=== PATIENT | female | born 1955 | race Caucasian/White ===

== ENCOUNTER 2018-12-22 10:23 | Outpatient (REF) | payer OTHER, SELFPAY ==
[2018-12-22 12:52] LABS: ALT 24 U/L (12-78); AST 19 U/L (15-37); Albumin 3.8 g/dL (3.4-5.0); Alkaline Phosphatase 64 U/L (46-116); Anion Gap 12.1 mmol/L (3-11); BUN 29 mg/dL (7-18); Bilirubin, Total 0.4 mg/dL (0.2-1.0); CO2 23.9 mmol/L (21.0-32.0); CREATININE 1.55 mg/dL (0.55-1.02); Calcium 9.1 mg/dL (8.5-10.1); Chloride 107 mmol/L (98-107); Cholesterol 212 mg/dL (50-200); Estimated GFR 33.56 (mL/min/1.73m2); Glucose 98 mg/dL (70-100); HDL Cholesterol 79 mg/dL (40-60); LDL CHOLESTEROL 110 mg/dL (<100); Potassium 4.4 mmol/L (3.5-5.1); Sodium 143 mmol/L (136-145); Total Protein 6.7 g/dL (6.4-8.2); Triglyceride 76 mg/dL (30-150)
== END 2018-12-22 10:43 ==
LOC: NCHCN 10:23
PROVIDERS: PCP Nurse Practitioner; Visit Provider Nurse Practitioner
DX: I10 Essential (primary) hypertension (principal); N18.4 Chronic kidney disease, stage 4 (severe)
CPT/HCPCS: 80053; 80061; 83721

== ENCOUNTER 2019-05-05 02:43 | Outpatient (CLI) | payer OTHER, SELFPAY ==
--- NOTE | 2019-05-05 08:00 | DI.MAMMO_ITS ---
EXAM: MG MAMMO SCREENING CLINICAL HISTORY: SCREENING, Z12.39. TECHNIQUE: COMPARISON: No exams were available for comparison FINDINGS: Breasts are of moderate density with fairly symmetrical distribution of fibroglandular tissue. No do minant mass or clumped microcalcification is identified in either breast. Current examination is com pared with previous examinations including June 2015 and there has been no gross interval change in appearance comparison with the previous studies. IMPRESSION: No specific evidence of malignancy at this time. Routine screening examinations suggested at yearly intervals in this age group according to the ACS ACR guidelines category 1 breast density category B
== END 2019-05-05 03:03 ==
PROVIDERS: PCP Nurse Practitioner; Visit Provider Nurse Practitioner
DX: Z12.31 Encounter for screening mammogram for malignant neoplasm of breast (principal)
CPT/HCPCS: 77063; 77067

== ENCOUNTER 2020-03-28 08:06 | Outpatient (REF) | payer OTHER, SELFPAY ==
[2020-03-28 19:05] LABS: ALT 21 U/L (14-59); AST 18 U/L (15-37); Albumin 3.9 g/dL (3.4-5.0); Alkaline Phosphatase 63 U/L (46-116); Anion Gap 7.1 mmol/L (3-11); BUN 27 mg/dL (7-18); Bilirubin, Total 0.4 mg/dL (0.2-1.0); CO2 24.9 mmol/L (21.0-32.0); CREATININE 1.89 mg/dL (0.55-1.02); Calcium 8.8 mg/dL (8.5-10.1); Calculated LDL 126 mg/dL (<100); Chloride 111 mmol/L (98-107); Cholesterol 204 mg/dL (<200); Estimated GFR 26.61 (mL/min/1.73m2); Glucose 94 mg/dL (74-106); HDL Cholesterol 63 mg/dL (40-60); Potassium 4.5 mmol/L (3.5-5.1); Sodium 143 mmol/L (136-145); Total Protein 6.4 g/dL (6.4-8.2); Triglyceride 79 mg/dL (<150)
[2020-03-30 14:01] LABS: HCV RNA Qualitative Undetected (Undetected)
== END 2020-03-28 08:26 ==
LOC: NCHCN 08:06
PROVIDERS: PCP Nurse Practitioner; Visit Provider Nurse Practitioner
DX: I10 Essential (primary) hypertension (principal); N18.4 Chronic kidney disease, stage 4 (severe); Z00.00 Encounter for general adult medical examination without abnormal findings; Z11.59 Encounter for screening for other viral diseases
CPT/HCPCS: 80053; 80061; 87522

== ENCOUNTER 2021-07-05 09:13 | Outpatient (REF) | payer MEDICARE, SELFPAY ==
[2021-07-05 14:56] LABS: Calculated LDL 123 mg/dL (<100); Cholesterol 217 mg/dL (<200); HDL Cholesterol 70 mg/dL (40-60); Triglyceride 122 mg/dL (<150)
== END 2021-07-05 09:14 | disposition home or self-care (01) ==
LOC: NCHCN 09:13
PROVIDERS: PCP Nurse Practitioner; Visit Provider Nurse Practitioner
DX: Z00.00 Encounter for general adult medical examination without abnormal findings (principal)
CPT/HCPCS: 80061

== ENCOUNTER 2021-08-21 01:29 | Outpatient (CLI) | payer MEDICARE, SELFPAY ==
--- NOTE | 2021-08-21 16:00 | DI.MAMMO_ITS ---
Exam(s) MAMMO SCREENING EXAM: MAMMO SCREENING CLINICAL HISTORY: SCREENING, Z12.39 TECHNIQUE: Mammograms were interpreted according to the usual protocol including computer analysis w Plurality system, tomosynthesis and C-view imaging. COMPARISON: FINDINGS: The breasts are of moderate density with fairly symmetrical distribution of fibroglandular tissue. T here is a stable well-circumscribed nodule in the upper outer quadrant of the left breast, unchanged from multiple prior examinations including May 2019. No new mass or clumped microcalcification i dentified in either breast. IMPRESSION: No specific evidence of malignancy at this time. Routine screening examinations are suggested at yea rly intervals in this age group according to the ACS ACR guidelines. BI-RADS Category 1 - Negative Breast Density - Category B - Scattered areas of fibroglandular density
--- NOTE | 2021-08-21 16:30 | DI.DEXA_ITS ---
Exam(s) XR DEXA BONE DENSITY W/WO KAYCE EXAM: XR DEXA BONE DENSITY W/WO KAYCE CLINICAL HISTORY: MENOPAUSE, Z78.0 TECHNIQUE: COMPARISON: No exams were available for comparison FINDINGS: DEXA scan was performed according to the usual protocol. Please see the accompanying data sheets. F indings for left hip scanning are T-score 2.0 with left femoral neck T-score -3.0. Findings for lumbar spine scanning are T-score -2.8. Findings for left forearm scanning are T-score -1.4. The lateral vertebral scanogram shows probable mild compression deformities of midthoracic vertebral bodies, confirmation with thoracic spine radiographs suggested. IMPRESSION: The findings are consistent with osteoporosis according to the WHO criteria. Suspect mid thoracic ve rtebral compression fractures, thoracic spine radiographs recommended. RADIATION DOSE DELIVERED: Total DLP
== END 2021-08-21 01:49 ==
PROVIDERS: PCP Nurse Practitioner; Visit Provider Nurse Practitioner
DX: Z78.0 Asymptomatic menopausal state (principal); Z13.820 Encounter for screening for osteoporosis; M81.0 Age-related osteoporosis without current pathological fracture; R93.7 Abnormal findings on diagnostic imaging of other parts of musculoskeletal system
CPT/HCPCS: 77063; 77067; 77080

== ENCOUNTER → 2021-09-11 00:34 | Outpatient (CLI) | payer MEDICARE, SELFPAY ==
--- NOTE | 2021-09-11 | DI.RAD_ITS ---
Exam(s) XR THORACIC SPINE COMPLETE EXAM: XR THORACIC SPINE COMPLETE CLINICAL HISTORY: OSTEOPOROSIS, M81.0, VERTEBRAL COMPRESSION FRACTURES SUSPECTED ON DEXA. TECHNIQUE: 2D digital imaging was performed. COMPARISON: CR XR DEXA BONE DENSITY W/WO KAYCE from 08/21/2021 FINDINGS: There is no evidence of compression fracture nor listhesis in the thoracic spinal column. Disc space s exhibit normal height. No abnormal widening of the paraspinal lines. No osseous lesions. IMPRESSION: No compression fractures evident in the thoracic spinal column. The findings evident on the lateral scanogram of the recent DEXA scan appear to have been artifact DATA REPOSITORY: RADIATION DOSE DELIVERED:
== END ==
PROVIDERS: PCP Nurse Practitioner; Visit Provider Nurse Practitioner Family
DX: M81.0 Age-related osteoporosis without current pathological fracture (principal)
CPT/HCPCS: 72072

== ENCOUNTER 2021-09-25 01:44 | Outpatient (CLI) | payer MEDICARE, SELFPAY ==
[2021-09-25 11:59] LABS: Abs Immature Grans 0.06 10^3/uL (0.0-0.06); Absolute Basophil Count 0.04 10^3/uL (0.0-0.2); Absolute Eosinophil Count 0.25 10^3/uL (0.0-0.7); Absolute Lymphocyte Count 1.41 10^3/uL (1.2-3.4); Absolute Monocyte Count 0.45 10^3/uL (0.1-0.8); Absolute Neutrophil Count 5.34 10^3/uL (1.2-6.7); Basophils % 0.5; Eosinophils % 3.3; HCT 38.3 % (36.0-46.0); HGB 11.6 g/dL (11.2-15.7); Immature Grans % 0.8; Lymphocytes % 18.7; MCH 27.5 pg (27.0-33.0); MCHC 30.3 % (32.0-36.0); MCV 90.8 fL (80-95); Neutrophils % 70.7; Nucleated RBC 0 %; Platelet Count 214 10^3/uL (130-400); RBC 4.22 10^6/uL (3.93-5.22); RDW 14.7 % (11.7-14.6); RDW-SD 48.8 fL; WBC 7.55 10^3/uL (4.4-10.8)
[2021-09-25 22:49] LABS: ALT 27 U/L (14-59); AST 17 U/L (15-37); Albumin 3.7 g/dL (3.4-5.0); Alkaline Phosphatase 67 U/L (46-116); Anion Gap 7.7 mmol/L (3-11); BUN 40 mg/dL (7-18); Bilirubin, Total 0.3 mg/dL (0.2-1.0); CO2 26.3 mmol/L (21.0-32.0); CREATININE 1.7 mg/dL (0.55-1.02); Calcium 8.6 mg/dL (8.5-10.1); Chloride 109 mmol/L (98-107); Estimated GFR 29.89 (mL/min/1.73m2); Glucose 83 mg/dL (74-106); Potassium 4.5 mmol/L (3.5-5.1); Sodium 143 mmol/L (136-145); Total Protein 6.4 g/dL (6.4-8.2)
[2021-09-26 01:13] LABS: Vitamin D 25 Total 18.7 ng/mL (30-100)
[2021-09-27 09:46] LABS: Parathyroid Hormone,Intact 183 pg/mL (19-88)
== END 2021-09-25 01:45 | disposition home or self-care (01) ==
PROVIDERS: PCP Nurse Practitioner; Visit Provider Nurse Practitioner Family
DX: N18.4 Chronic kidney disease, stage 4 (severe) (principal); I10 Essential (primary) hypertension; M81.0 Age-related osteoporosis without current pathological fracture
CPT/HCPCS: 36415; 80053; 82306; 83970; 85025

== ENCOUNTER 2021-12-25 13:11 | Outpatient (REF) | payer MEDICARE, SELFPAY ==
[2021-12-25 17:02] LABS: Microalb ug/mg Crea 414.6 ug/mg Cr
== END 2021-12-25 13:12 | disposition home or self-care (01) ==
LOC: NCHCN 13:11
PROVIDERS: PCP Nurse Practitioner; Visit Provider Nurse Practitioner Family
DX: I10 Essential (primary) hypertension (principal); N18.4 Chronic kidney disease, stage 4 (severe)
CPT/HCPCS: 82043; 82570

== ENCOUNTER 2022-01-15 15:22 | Outpatient (REF) | payer MEDICARE, SELFPAY ==
[2022-01-15 14:49] LABS: Iron 50 ug/dL (50-170); Total Iron Binding Capacity 291 ug/dL (250-450); Transferrin Sat 17 % (15-50)
[2022-01-15 15:04] LABS: ALT 17 U/L (14-59); AST 15 U/L (15-37); Albumin 3.7 g/dL (3.4-5.0); Alkaline Phosphatase 62 U/L (46-116); Anion Gap 9.4 mmol/L (3-11); BUN 37 mg/dL (7-18); Bilirubin, Total 0.4 mg/dL (0.2-1.0); CO2 23.6 mmol/L (21.0-32.0); CREATININE 2.3 mg/dL (0.55-1.02); Calcium 8.7 mg/dL (8.5-10.1); Chloride 106 mmol/L (98-107); Estimated GFR 21.09 (mL/min/1.73m2); Ferritin 248 ng/mL (8-252); Glucose 93 mg/dL (74-106); Magnesium 2.1 mg/dL (1.8-2.4); Potassium 4.3 mmol/L (3.5-5.1); Sodium 139 mmol/L (136-145); Total Protein 6.8 g/dL (6.4-8.2)
[2022-01-15 15:33] LABS: PHOSPHORUS 4.1 mg/dL (2.6-4.7)
== END 2022-01-15 15:23 | disposition home or self-care (01) ==
LOC: NCHCN 15:22
PROVIDERS: PCP Nurse Practitioner; Visit Provider Nurse Practitioner Family
DX: N18.4 Chronic kidney disease, stage 4 (severe) (principal); I10 Essential (primary) hypertension; R20.2 Paresthesia of skin; M81.0 Age-related osteoporosis without current pathological fracture
CPT/HCPCS: 80053; 82728; 83540; 83550; 83735; 84100

== ENCOUNTER 2023-03-03 16:16 | Outpatient (REF) | payer MEDICARE, SELFPAY ==
[2023-03-03 15:57] LABS: Bacteria Moderate HPF (Negative); C & S Indicated? C&S Done As Ordered; Casts Negative LPF (Negative); Crystals Negative HPF (Negative); Epithelial Cells Rare HPF (Negative); Mucus Trace (Negative); Other Cells Negative (Negative); WBC >50 HPF (0-5)
== END 2023-03-03 16:17 | disposition home or self-care (01) ==
LOC: LBN 16:16
PROVIDERS: PCP Nurse Practitioner; Visit Provider Nurse Practitioner Family
DX: N30.01 Acute cystitis with hematuria (principal)
CPT/HCPCS: 87077; 81015; 87086; 87186

== ENCOUNTER 2023-03-05 18:14 | Outpatient (REF) | payer MEDICARE, SELFPAY ==
[2023-03-05 16:32] LABS: Abs Immature Grans 0.34 10^3/uL (0.0-0.06); Absolute Basophil Count 0.05 10^3/uL (0.0-0.2); Absolute Eosinophil Count 0.09 10^3/uL (0.0-0.7); Absolute Lymphocyte Count 0.76 10^3/uL (1.2-3.4); Absolute Monocyte Count 0.87 10^3/uL (0.1-0.8); Basophils % 0.4; Eosinophils % 0.7; HCT 34.4 % (36.0-46.0); HGB 10.6 g/dL (11.2-15.7); Immature Grans % 2.5; Lymphocytes % 5.7; MCH 27.3 pg (27.0-33.0); MCHC 30.8 % (32.0-36.0); MCV 89 fL (80-95); MPV 10.7 fL (8.0-11.0); Monocytes % 6.5; Neutrophils % 84.2; Platelet Count 311 10^3/uL (130-400); RBC 3.88 10^6/uL (3.93-5.22); RDW 14.5 % (11.7-14.6); RDW-SD 46.8 fL; WBC 13.42 10^3/uL (4.4-10.8)
[2023-03-05 16:59] LABS: Anion Gap 12.1 mmol/L (3-11); BUN 39 mg/dL (7-18); CO2 20.9 mmol/L (21.0-32.0); CREATININE 2.7 mg/dL (0.55-1.02); Calcium 9.4 mg/dL (8.5-10.1); Chloride 104 mmol/L (98-107); Estimated GFR 18.52 (mL/min/1.73m2); Glucose 109 mg/dL (74-106); Potassium 4.3 mmol/L (3.5-5.1); Sodium 137 mmol/L (136-145)
== END 2023-03-05 18:15 | disposition home or self-care (01) ==
LOC: NCHCN 18:14
PROVIDERS: PCP Nurse Practitioner; Visit Provider Nurse Practitioner Family
DX: I10 Essential (primary) hypertension (principal); N18.4 Chronic kidney disease, stage 4 (severe); N30.01 Acute cystitis with hematuria
CPT/HCPCS: 80048; 85025

== ENCOUNTER 2023-04-16 18:47 | Outpatient (REF) | payer MEDICARE, SELFPAY ==
[2023-04-16 19:51] LABS: ALT 19 U/L (14-59); AST 17 U/L (15-37); Albumin 3.5 g/dL (3.4-5.0); Alkaline Phosphatase 62 U/L (46-116); Anion Gap 8.3 mmol/L (3-11); BUN 30 mg/dL (7-18); Bilirubin, Total 0.5 mg/dL (0.2-1.0); CO2 23.7 mmol/L (21.0-32.0); CREATININE 2.3 mg/dL (0.55-1.02); Calcium 8.8 mg/dL (8.5-10.1); Calculated LDL 90 mg/dL (<100); Chloride 108 mmol/L (98-107); Cholesterol 178 mg/dL (<200); Estimated GFR 22.45 (mL/min/1.73m2); Glucose 100 mg/dL (74-106); HDL Cholesterol 73 mg/dL (40-60); Potassium 4.4 mmol/L (3.5-5.1); Sodium 140 mmol/L (136-145); Total Protein 6.6 g/dL (6.4-8.2); Triglyceride 76 mg/dL (<150)
== END 2023-04-16 18:48 | disposition home or self-care (01) ==
LOC: NCHCN 18:47
PROVIDERS: PCP Nurse Practitioner; Visit Provider Nurse Practitioner Family
DX: I10 Essential (primary) hypertension (principal); E78.2 Mixed hyperlipidemia; N18.4 Chronic kidney disease, stage 4 (severe); M81.0 Age-related osteoporosis without current pathological fracture
CPT/HCPCS: 80053; 80061

== ENCOUNTER 2024-04-28 02:20 | Outpatient (CLI) | payer MEDICARE, SELFPAY ==
--- NOTE | 2024-04-28 | DI.MAMMO_ITS ---
Exam(s) MAMMO SCREENING EXAM: MAMMO SCREENING CLINICAL HISTORY: SCREENING MAMMO Z12.31 TECHNIQUE: Bilateral full field digital CC and MLO mammographic images were obtained with 3D tomosyn thesis and utilizing computer aided detection (CAD). COMPARISON: Available for comparison. FINDINGS: Masses/Architectural Distortion: There is a stable nodule seen in the upper outer quadrant of the lef t breast. No suspicious nodules are seen. No areas of architectural distortion are present. Microcalcifications: No suspicious pleomorphic-type are seen. Skin Thickening/Nipple Retraction: None. IMPRESSION: 1. No significant interval change with no specific features of malignancy noted. 2. Unless there is more urgent need, screening mammography is recommended, as per [employer] guidelines. BI-RADS Category 2 - Benign Findings Breast Density - Category B - Scattered areas of fibroglandular density Breast density category C or D implies that the patient has dense breast tissue. Dense breast tissue is very common and is not abnormal but dense breast tissue can make it harder to find cancer on a ma mmogram. Also, dense breast tissue may increase their breast cancer risk. This information about the result of the mammogram report was provided to the patient to raise their awareness. Use this report when you speak with the patient about their risks for breast cancer, which includes their family hist ory. At that time, you may recommend for more screening tests (Ultrasound or MRI) as they might be us eful based on their risk. A negative radiographic report should not delay biopsy if a dominant or clinically suspicious mass is present. Up to ten percent of cancers are not identified on mammography. A negative report may reinforce clinical impression. Adenosis and dense breasts may obscure an underlying neoplasm. False positive reports average 6 to 10%. Patient will receive a letter notifying them of these results.
== END 2024-04-28 02:40 ==
PROVIDERS: Visit Provider Nurse Practitioner Family
DX: Z12.31 Encounter for screening mammogram for malignant neoplasm of breast (principal)
CPT/HCPCS: 77063; 77067

== ENCOUNTER 2024-05-27 21:57 | Outpatient (REF) | payer MEDICARE, SELFPAY ==
--- OUTSIDE RECORDS SUMMARY | 2024-05-27 22:03 | XMS_ITS | Encounter Summary ---
[place] [address] Care Team Providers Care Design Eng Name Role Phone Shannon Fletcher APRN Primary Care Provider [phone] Encounter Details Date Type Department Care Team (Late st Contact Info) Description 10/16/2022 Telephone [place]ph[place] [phone] Roxanne Loja Social History Tobacco Use Types Packs/Day Years Used Date Smoking Tobacco: Never Smokeless Tobacco: Never Alcohol Use Standard Drinks/Week Comments No 0 (1 standard drink = 0.6 oz pur e alcohol) Sex and Gender Information Value Date Recorded Sex Assigned at Not on file Gender Identity Not on file Sexual Orientation Not on file documented as of this encounter Plan of Treatment Not on file documented as of this encounter Visit Diagnoses Not on filedocumented in this encounter Care Teams Design Eng Relationship Specialty Start Date End Date Shannon Fletcher [place] [address] [place] [address] PCP - General Family Medicine 09/30/21 documented as of this encounter
--- OUTSIDE RECORDS SUMMARY | 2024-05-27 22:03 | XMS_ITS | Encounter Summary ---
[place] [address] Care Team Providers Care Slot Attendant Name Role Phone Rina Hernandez APRN Primary Care Provider [phone] Reason for Visit * Consultation (Routine) - Closed Specialty Diagnoses / Procedures Referred By Contsofya t Referred To Contact Nephrology Diagnoses Renal insufficiency Rina Hernandez APRN [address] [place] [address] [facility] Nephrology [address] [place] [id number] Referral ID Status Reason Start Date Expiration Date V isits Requested Visits Authorized [id number] Closed Consult, Test & [facility] 01/02/2017 01/02/2018 1 1 Encounter Details Date Type Department Care Team (Latest Contact Info) Description 02/13/2017 11:00 AM EDT Office Visit [place] [phone] Rolf Camacho MD CKD (chronic kidney disease) stage 4, GFR 15-29 ml/min Social History Tobacco Use Types Packs/Day Years Used Date Smoking Tobacco: Never Smokeless Tobacco: Never Alcohol Use Standard Drinks/Week Comments No 0 (1 standard drink = 0.6 oz pur e alcohol) Sex and Gender Information Value Date Recorded Sex Assigned at Not on file Gender Identity Not on file Sexual Orientation Not on file documented as of this encounter Last Filed Vital Signs Vital Sign Reading Time Taken Comments Blood Pressure 140/72 02/13/2017 10:54 AM EDT Pulse 56 02/13/2017 10:54 AM EDT Temperature - - Respiratory Rate - - Oxygen Saturation 97% 02/13/2017 10:54 AM EDT Inhaled Oxygen Concentration - - Weight 97.1 kg (214 lb) 02/13/2017 10:54 AM EDT Height 156.2 cm (5' 1.5) 02/13/2017 10:54 AM ED T Body Mass Index 39.78 02/13/2017 10:54 AM EDT documented in this encounter Progress Notes * Rolf Camacho MD - 02/13/2017 11:00 AM EDT Renal and Hypertension New Patient Visit History of Presenting Complaint including relevant review of systems This is a new patient visit to the Renal and Hypertension clinic for this 61 y.o. year old female referred by Rina Hernandez APRN The referring documents were reviewed. Additional data were obtained from the [facility] records (eDH andCIS) and the referring physician's office. ?? 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 Patient has taken lithium for 29 years. Thebes was discontinued 2 years ago be because of concern for kidney function. She reports urinary frequency every 2 hours and nocturia ??2-3 as well as an episode of dehydration following surgery in the past. She denies tremor. She reports that her bipolar affective disorder is currently in remission. ?? Hypertension well controlled. Systolic blood pressure normally 1:30 to 140 ?? Occasional urinary tract infection ?? 2 para 2 with section at term secondary to disproportion There is no previous history of diabetes, identified primary renal disease, nephrolithiasis, urinary tract infection, gout, collagen vascular disease Additional Past Medical History ?? 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 labetalol (NORMODYNE) 100 mg Tablet 100 mg 2 times daily. 0 ??? lisinopril (PRINIVIL;ZESTRIL) 10 mg Tablet 10 mg daily. 0 ??? valACYclovir (VALTREX) 500 mg Tablet 500 mg daily. 0 No current facility-administered medications for this visit. No NSAIDs. No OTCs or supplements Review of Systems Complete review of systems is negative apart from relevant positives and negatives listed above On examination This is a pleasant, well- appearing 61 y.o. female in no acute distress Blood pressure 140/72, pulse 56, height 156.2 cm (5' 1.5), weight 97.1 kg (214 lb), SpO2 97 %. Body mass index is 39.78 kg/(m^2). There is no uremic fetor and no asterixis The head is normal There is no conjunctival pallor The hands and nails are unremarkable The oropharynx appears normal. Dentition is fair There is no jugular venous distention There is no peripheral edema and no sacral edema The heart sounds are S1 + S2 with no rubs, murmurs or gallops The Breath sounds are vesicular throughout with no added sounds The thoracic and lumbar spine is non tender to percussion along its length The abdomen is soft and nontender. There is no costovertebral angle tenderness. No masses or organsare palpated The carotid, brachial, femoral popliteal, dorsalis pedis and posterior tibial pulses are present and equal without bruits. There are no abdominal bruits There is no tremor Gait is normal. Facies symmetrical. DORIAN, Mentation and speech are normal Labs: Reviewed outside laboratory values and data available in eDH. Notable for as above Serum creatinine December 24, 2016 1.65 mg/dL estimated GFR 31 mils per minutes Results for ODILON JONES ( ) as of 02/20/2017 15:06 Ref. Range 02/13/2017 10:40 02/13/2017 12:14 Sodium Latest Ref Range: 135 - 145 mmol/L 143 Potassium Latest Ref Range: 3.5 - 5.0 mmol/L 4.8 Chloride Latest Ref Range: 98 - 107 mmol/L 107 CO2 Latest Ref Range: 22 - 31 mmol/L 22 Anion Gap Latest Ref Range: 5 - 15 mmol/L 14 BUN Latest Ref Range: 8 - 18 mg/dL 26 (H) Creatinine Latest Ref Range: 0.70 - 1.20 mg/dL 1.76 (H) Estimated GFR Latest Ref Range: >=60 29 (L) Glucose Lvl Latest Ref Range: 65 - 199 mg/dL 96 Calcium Latest Ref Range: 8.5 - 10.5 mg/dL 9.7 Total Prot Elec Latest Ref Range: 6.1 - 8.0 gm/dL 6.6 Albumin Elect Latest Ref Range: 3.60 - 6.00 gm/dL 4.53 Alpha1-Globulin Latest Ref Range: 0.10 - 0.30 gm/dL 0.20 Alpha2-Globulin Latest Ref Range: 0.40 - 0.90 gm/dL 0.67 Beta Globulin Latest Ref Range: 0.50 - 1.00 gm/dL 0.64 Gamma Globulin Latest Ref Range: 0.50 - 1.30 gm/dL 0.55 M1 Band Unknown None Detected U Protein Ran Latest Ref Range: 0 - 12 mg/dL 11 Radiology studies: No renal imaging Urinalysis and microscopy: Renal clinic laboratory Urine dipstick: negative for blood, trace protein, leucocytes Urine microscopy: Low and High power bobby Negative for cells,casts, crystals Assessment and Recommendations 1. Stable stage IV CK D most likely secondary to chronic lithium nephrotoxicity. This diagnosis canbe confirmed with ultrasound to rule out obstruction or other structural cause such as polycystic kidney disease.. Increased medullary echogenicity may be present in cases of chronic lithium nephrotoxicity and is considered a confirmatory finding. There is no evidence of myeloma and No evidence of primary renal disease. 2. Hypertensionappears to be well controlled 3. Recommend Sufficient water to maintain light colored urine particular during hot weather. Avoid nonsteroidal anti-inflammatory medications dietary fruit and vegetables sufficient to maintain serumpotassium greater than 4 mEq per liter 4. I've asked the patient to have medications renewed by your office as needed 5. Return to clinic 3 months with renal ultrasound and basic metabolic panel, CK D labs. Ordered.. I Thank you for referring this interesting patient documented in this encounter Plan of Treatment Not on file documented as of this encounter Procedures Procedure Name Priority Date/Time Associated Diagnosis Comments PTH Routine 02/13/2017 12:14 PM EDT CKD (chronic kidney disease) stage 4, GFR 15-29 ml/min HEMOGRAM Routine 02/13/2017 12:14 PM EDT CKD (chronic kidney disease) stage 4, GFR 15-29 ml/min DIFFERENTIAL, AUTOMATED Routine 02/13/2017 12:14 PM EDT CKD (chronic kidney disease) stage 4, GFR 15-29 ml/min CBC (WITH DIFF) Routine 02/13/2017 12:14 PM EDT CKD (chronic kidney disease) stage 4, GFR 15-29 ml/min PROTEIN ELECTROPHORESIS, SERUM Routine 02/13/2017 12:14 PM EDT CKD (chronic kidney disease) stage 4, GFR 15-29 ml/min BASIC METABOLIC PANEL Routine 02/13/2017 12:14 PM EDT CKD (chronic kidney disease) stage 4, GFR 15-29 ml/min PROTEIN/CREATININE RATIO, URINE Routine 02/13/2017 10:40 AM EDT CKD (chronic kidney disease) stage 4, GFR 15-29 ml/min documented in this encounter Results * (ABNORMAL) Vitamin D, 25-Hydroxy (04/08/2017 12:34 PM EDT) Vitamin D Total 25 OH 27(L) 30 - 100 ng/mL [facility] Comment: Deficient <10 ng/mL Insufficient 10 to 29 ng/mL Sufficient 30 to 100 ng/mL Potential Intoxication >100 ng/mL According to the [place] National Osteoporosis Foundation, Vitamin D concentrations >30 ng/mL are sufficient to protect bone health. ??The National Kidney Foundation has similarly stated that patients with Vitamin D concentrations <30ng/mL should be considered to be insufficient or deficient. http://tracx.com/nkf-guidelines http://tracx.com/nejm-VitD The IDS iSYS Vitamin D Immunoassay detects both 25-OH Vitamin D2 and 25-OH Vitamin D3, but only a total Vitamin D concentration is reported. Blood specimen (specimen) 04/08/2017 12:34 PM EDT 04/08/2017 2:36 PM EDT Narrative Resulting Agency Comment Spec In Lab Rolf Camacho MD CHEMISTRY ORDERABLES [facility] [place] [address] * (ABNORMAL) PTH (04/08/2017 12:34 PM EDT) Parathyroid Hormone 114(H) 15 - 65 pg/mL [facility] Blood specimen (specimen) 04/08/2017 12:34 PM EDT 04/08/2017 12:41 PM EDT Narrative Resulting Agency Comment Spec In Lab Rolf Camacho MD CHEMISTRY ORDERABLES Performing Organization Address City/[facility]/ZIP Co de Phone Number [facility] [place] [address] * (ABNORMAL) Uric acid (04/08/2017 12:34 PM EDT) Uric Acid 7.6(H) 2.5 - 6.5 mg/dL [facility] Blood specimen (specimen) 04/08/2017 12:34 PM EDT 04/08/2017 12:41 PM EDT Narrative Resulting Agency Comment Spec In Lab Rolf Camacho MD CHEMISTRY ORDERABLES Performing Organization Address City/[facility]/ZIP Co de Phone Number [facility] [place] [address] * (ABNORMAL) Basic Metabolic Panel (non-fasting) (04/08/2017 12:34 PM EDT) Glucose 94 65 - 199 mg/dL [facility] Comment:Diabetes: >=200 mg/d L plus symptoms Blood Urea Nitrogen 28(H) 8 - 18 mg/dL [facility] Creatinine 1.77(H) 0.70 - 1.20 mg/dL [facility] Comment: Please note that the pediatric reference intervals supplied above were not validated at [facility]. Results from pediatric patients should be interpreted in conjunction to the patient's age, height and muscle mass. Sodium 144 135 - 145 mmol/L [facility] Potassium 4.7 3.5 - 5.0 mmol/L [facility] Comment: Please note: ??Patients with WBC >100,000 may have falsely elevated Potassium levels. ??For accurate Potassium quantification in these patients send serum separator tube (gold top) for subsequent determinations. ??Contact the Clinical Chemistry Laboratory if there are any questions. Chloride 107 98 - 107 mmol/L [facility] Carbon Dioxide 24 22 - 31 mmol/L [facility] Anion Gap 13 5 - 15 mmol/L [facility] Calcium 9.7 8.5 - 10.5 mg/dL [facility] Est Glomerular Filtration Rate 29(L) >=60 [facility] Comment: This estimated GFR (eGFR) value was calculated using the MDRD equation which has been validated on patients between the ages of 18 and 70. The MDRD should not be used to assess kidney function in patients < 18 years of age or in patients with extremes of body mass, or in patients with acute kidney failure. This value should be multiplied by 1.2 for patients. For further information please copy and paste the following links into your internet browser. http://Zumbox/DHnkdep http://Zumbox/DHMCnkf Blood specimen (specimen) 04/08/2017 12:34 PM EDT 04/08/2017 12:41 PM EDT Narrative Resulting Agency Comment Spec In Lab Rolf Camacho MD CHEMISTRY ORDERABLES [facility] [place] [address] * US Retroperitoneal Complete (04/08/2017 11:12 AM EDT) Anatomical Region Laterality Modality Abdomen Ultrasound 04/08/2017 11:0 9 AM EDT Impressions 04/08/2017 11:42 AM EDT ??1. ??Normal echogenicity of bilateral kidneys with mild cortical thinning. Nohydronephrosis.2. ??Partially distended bladder, otherwise normal bladder wall contour.I have personally reviewed the image(s) and the residents interpretation andagree with the findings, Jie Mcfarlane at 04/08/2017 11:35 AM ?Jie Mcfarlane MD Electronically Signed Final Report ?? 04/08/2017 11:42 am Narrative 04/08/2017 11:42 AM EDT Renal ? (Signed Final 04/08/2017 11:42 am) PATIENT INFO: ID #: ? [id number] ?: ??[birth year] (61 yrs) Name: ? ODILON JONES ?Visit Date: 04/08/2017 11:09 am PERFORMED BY: Performed By: ? Ana Lilia Sanchez RDMS Attending: ?Denys DE LEÓN, Jie Merrill Resident: ? Rosa Maharaj MD Referred By: ?ROLF CAMACHO Location: ? [place] SERVICE(S) PROVIDED: ??URETRO - Retroperitoneal Complete - [id number] ? [id number] INDICATIONS: ??CKD COMPARISON: No prior studies for comparison. RIGHT KIDNEY: Size (cm) ?L: ??8.5 Cortical Thickness: ?Cortical thinning Cortical Echogenicity: ?? Normal Hydronephrosis: ?No sonographic evidence Comment: ?Simple renal cyst visualized, measuring 0.6 cm. LEFT KIDNEY: Size (cm) ?L: ??9.0 Cortical Thickness: ?Normal Cortical Echogenicity: ?? Normal Hydronephrosis: ?No sonographic evidence URINARY BLADDER: Pre-void (cm) ? L: ??4.5 ? AP: ??4.4 ? TV: ??6.4 Vol (ml): ?66.4 Comment: ?Partially distended, normal contour Procedure Note Jie Mcfarlane MD - 04/08/2017 Renal (Signed Final 04/08/2017 11:42 am) PATIENT INFO: ID #: [id number] : [birth year] (61 yrs) Name: ODILON JONES Visit Date: 04/08/2017 11:09 am PERFORMED BY: Performed By: Ana Lilia Sanchez RDMS Attending: Jie Mcfarlane MD Resident: Rosa Maharaj MD Referred By: ROLF CAMACHO Location: [place] SERVICE(S) PROVIDED: URETRO - Retroperitoneal Complete - [id number] INDICATIONS: CKD COMPARISON: No prior studies for comparison. RIGHT KIDNEY: Size (cm) L: 8.5 Cortical Thickness: Cortical thinning Cortical Echogenicity: Normal Hydronephrosis: No sonographic evidence Comment: Simple renal cyst visualized, measuring 0.6 cm. LEFT KIDNEY: Size (cm) L: 9.0 Cortical Thickness: Normal Cortical Echogenicity: Normal Hydronephrosis: No sonographic evidence URINARY BLADDER: Pre-void (cm) L: 4.5 AP: 4.4 TV: 6.4 Vol (ml): 66.4 Comment: Partially distended, normal contour IMPRESSION 1. Normal echogenicity of bilateral kidneys with mild cortical thinning. Nohydronephrosis.2. Partially distended bladder, otherwise normal bladder wall contour.I have personally reviewed the image(s) and the residents interpretation andagree with the findings, Jie Mcfarlane at 04/08/2017 11:35 AM Jie Mcfarlane MD Electronically Signed Final Report 04/08/2017 11:42 am Rolf Camacho MD IMG US GEN ORDERABLE S * (ABNORMAL) Differential, Automated (02/13/2017 12:14 PM EDT) Neutrophil % 68.3 % [facility] Neutrophil Absolute 4.96 1.70 - 6.10 x10(3)/mc L [facility] Lymph % 21.5 % [facility] Lymphocytes Abs 1.6 0.9 - 3.2 x10(3)/mc L [facility] Monocyte % 4.8 % [facility] Monocyte Abs 0.4 0.3 - 0.9 x10(3)/[facility] Eos % 4.0 % [facility] Eosinophils Abs 0.3 0.0 - 0.4 x10(3)/[facility] Basophil % 0.7 % [facility] Baso Absolute 0.0 0.0 - 0.1 x10(3)/[facility] Immature Gran % 0.70 % [facility] Comment: Immature granulocytes(IG's)percentage and absolute count will include metamyelocytes, myelocytes, and promyelocytes. Blood smears from CBCs yielding IG's will be scanned manually for concordance. If this scan disagrees with the automated IG or if promyelocytes are noted, a manual differential will be performed. Immature Gran Absolute 0.05(H) 0.00 - 0.04 x10(3)/[facility] Blood specimen (specimen) 02/13/2017 12:14 PM EDT 02/13/2017 12:20 PM EDT Narrative Resulting Agency Comment Spec In Lab Rolf Camacho MD HEMATOLOGY ORDERABLE S [facility] [place] [address] * (ABNORMAL) Hemogram (02/13/2017 12:14 PM EDT) White Blood Cell 7.3 4.0 - 9.5 x10(3)/[facility] Red Blood Cell 4.16 4.00 - 5.21 x10(6)/[facility] Hemoglobin 11.6(L) 11.7 - 15.5 gm/dL [facility] Hematocrit 36.3 35.7 - 45.8 % [facility] Mean Cell Volume 87.3 82.6 - 94.4 fL [facility] Mean Cell Hemoglobin 27.9 27.1 - 32.0 pg [facility] Mean Cell Hemoglobin Concentration 32.0 31.7 - 35.0 gm/dL [facility] Platelet 196 145 - 357 x10(3)/mc L [facility] RDW Standard Deviation 46.2(H) 37.0 - 46.0 fL [facility] RDW coefficient of variation 14.4(H) 11.5 - 14.1 % [facility] Mean Platelet Volume 10.6 7.6 - 12.9 fL [facility] NRBC% auto 0.0 % [facility] NRBC Absolute 0.000 0.000 - 0.000 x10(3)/mc L [facility] Blood specimen (specimen) 02/13/2017 12:14 PM EDT 02/13/2017 12:20 PM EDT Narrative Resulting Agency Comment Spec In Lab Rolf Camacho MD HEMATOLOGY ORDERABLE S Performing Organization Address [facility]/ZIP Co de Phone Number [facility] [place] [address] * (ABNORMAL) PTH (02/13/2017 12:14 PM EDT) Pathologist [facility] Parathyroid Hormone 94(H) 15 - 65 pg/mL [facility] Blood specimen (specimen) 02/13/2017 12:14 PM EDT 02/13/2017 12:20 PM EDT Narrative Resulting Agency Comment Spec In Lab Rolf Camacho MD CHEMISTRY ORDERABLES Performing Organization Address City/[facility]/ZIP Co de Phone Number [facility] [place] [address] * Protein Electrophoresis, serum (02/13/2017 12:14 PM EDT) Pathologist [facility] Total Prot Electrophoresis 6.6 6.1 - 8.0 gm/dL [facility] Albumin Electrophoresis 4.53 3.60 - 6.00 gm/dL [facility] Alpha 1 Globulin 0.20 0.10 - 0.30 gm/dL [facility] Alpha 2 Globulin 0.67 0.40 - 0.90 gm/dL [facility] Beta Globulin 0.64 0.50 - 1.00 gm/dL [facility] Gamma Globulin 0.55 0.50 - 1.30 gm/dL [facility] M1 Band None Detected [facility] Blood specimen (specimen) 02/13/2017 12:14 PM EDT 02/13/2017 12:20 PM EDT Narrative Resulting Agency Comment Spec In Lab Rolf Camacho MD CHEMISTRY ORDERABLES [facility] [place] [address] * (ABNORMAL) Basic Metabolic Panel (non-fasting) (02/13/2017 12:14 PM EDT) Glucose 96 65 - 199 mg/dL [facility] Comment:Diabetes: >=200 mg/d L plus symptoms Blood Urea Nitrogen 26(H) 8 - 18 mg/dL [facility] Creatinine 1.76(H) 0.70 - 1.20 mg/dL [facility] Comment: Please note that the pediatric reference intervals supplied above were not validated at [facility]. Results from pediatric patients should be interpreted in conjunction to the patient's age, height and muscle mass. Sodium 143 135 - 145 mmol/L [facility] Potassium 4.8 3.5 - 5.0 mmol/L [facility] Comment: Please note: ??Patients with WBC >100,000 may have falsely elevated Potassium levels. ??For accurate Potassium quantification in these patients send serum separator tube (gold top) for subsequent determinations. ??Contact the Clinical Chemistry Laboratory if there are any questions. Chloride 107 98 - 107 mmol/L [facility] Carbon Dioxide 22 22 - 31 mmol/L [facility] Anion Gap 14 5 - 15 mmol/L [facility] Calcium 9.7 8.5 - 10.5 mg/dL [facility] Est Glomerular Filtration Rate 29(L) >=60 [facility] Comment: This estimated GFR (eGFR) value was calculated using the MDRD equation which has been validated on patients between the ages of 18 and 70. The MDRD should not be used to assess kidney function in patients < 18 years of age or in patients with extremes of body mass, or in patients with acute kidney failure. This value should be multiplied by 1.2 for patients. For further information please copy and paste the following links into your internet browser. http://Zumbox/DHnkdep http://Zumbox/DHMCnkf Blood specimen (specimen) 02/13/2017 12:14 PM EDT 02/13/2017 12:20 PM EDT Narrative Resulting Agency Comment Spec In Lab Rolf Camacho MD CHEMISTRY ORDERABLES Performing Organization Address City/[facility]/ZIP Co de Phone Number [facility] [place] [address] * Protein/Creatinine Ratio, urine (02/13/2017 10:40 AM EDT) Creatinine, Urine 72 mg/dL [facility] Protein, Urine 11 0 - 12 mg/dL [facility] Protein / Creatinine Ratio, Urine 0.2 ratio [facility] Urine specimen (specimen) 02/13/2017 10:40 AM EDT 02/13/2017 1:37 PM EDT Narrative Resulting Agency Comment Spec In Lab Rolf Camacho MD URINE ORDERABLES Performing Organization Address City/[facility]/ZIP Co de Phone Number [facility] [place] [address] documented in this encounter Visit Diagnoses Diagnosis CKD (chronic kidney disease) stage 4, GFR 15-29 ml/min Chronic kidney disease, Stage IV (severe) CKD (chronic kidney disease) stage 4, GFR 15-29 ml/min Chronic kidney disease, Stage IV (severe) documented in this encounter Care Teams Slot Attendant Relationship Specialty Start Date End Date Rina Hernandez APRN [address] [place] [address] PCP - General Family Medicine 01/02/17 09/29/21 documented as of this encounter
--- OUTSIDE RECORDS SUMMARY | 2024-05-27 22:03 | XMS_ITS | Encounter Summary ---
Author Organization [facility] [place] [address] Care Team Providers Care Pattern Finisher Name Role Phone Shannon Fletcher APRN Primary Care Provider [phone] Reason for Visit * Reason Onset Date Comments Medication Refill 07/14/2023 Encounter Details Date Type Department Care Team (Late st Contact Info) Description 07/14/2023 Refill [place]ph[place] [address] Luis Carlos Cross MD [facility] [place] [address] Social History Tobacco Use Types Packs/Day Years [...] on filedocumented in this encounter Care Teams Pattern Finisher Relationship Specialty Start Date End Date Shannon Fletcher [place] [address] PCP - General Family Medicine 09/30/21 documented as of this encounter
--- OUTSIDE RECORDS SUMMARY | 2024-05-27 22:03 | XMS_ITS | Encounter Summary ---
[place] [address] Care Team Providers Care Tipple Operator Name Role Phone Chance Shannon Ramachandran APRN Primary Care Provider [phone] Encounter Details Date Type Department Care Team (Latest Contact Info) Description 02/04/2022 2:15 PM EDT Laboratory Appointment Lab [address] [place] [id number] Stage 3b chronic kidney disease; Secondary hyperparathyroidism Social History Tobacco Use Types Packs/Day Years [...] Procedure Name Priority Date/Time Associated Diagnosis Comments HC VENIPUNCTURE Routine 02/04/2022 2:11 PM EDT Stage 3b chronic kidney disease Secondary hyperparathyroidism HC PARATHYROID HORMONE(PTH INTACT Routine 02/04/2022 2:11 PM EDT Stage 3b chronic kidney disease Secondary hyperparathyroidism HEMOGRAM Routine 02/04/2022 2:11 PM EDT Stage 3b chronic kidney disease Secondary hyperparathyroidism DIFFERENTIAL, AUTOMATED Routine 02/04/2022 2:11 PM EDT Stage 3b chronic kidney disease Secondary hyperparathyroidism HC VITAMIN D TOTAL-25 HYDROXY Routine 02/04/2022 2:11 PM EDT Stage 3b chronic kidney disease Secondary hyperparathyroidism HC CBC,PLT & AUTO DIFF Routine 02/04/2022 2:11 PM EDT Stage 3b chronic kidney disease Secondary hyperparathyroidism BASIC METABOLIC PANEL Routine 02/04/2022 2:11 PM EDT Stage 3b chronic kidney disease Secondary hyperparathyroidism documented in this encounter Results * Differential, Automated (02/04/2022 2:11 PM EDT) Neutrophil % 72.2 % [facility] Neutrophil Absolute 5.87 1.70 - 6.10 x10(3)/[facility] Lymph % 18.2 % [facility] Lymphocytes Abs 1.5 0.9 - 3.2 x10(3)/[facility] Monocyte % 5.5 % [facility] Monocyte Abs 0.4 0.3 - 0.9 x10(3)/[facility] Eos % 3.2 % [facility] Eosinophils Abs 0.3 0.0 - 0.4 x10(3)/[facility] Basophil % 0.7 % [facility] Baso Absolute 0.1 0.0 - 0.1 x10(3)/[facility] Immature Gran % 0.20 % [facility] Comment: Immature granulocytes(IG's)percentage and absolute count will include metamyelocytes, myelocytes, and promyelocytes. Blood smears from CBCs yielding IG's will be scanned manually for concordance. If this scan disagrees with the automated IG or if promyelocytes are noted, a manual differential will be performed. Immature Gran Absolute 0.02 0.00 - 0.04 x10(3)/[facility] Blood 02/04/2022 2:11 PM EDT 02/04/2022 2:19 PM EDT Narrative Resulting Agency Comment Spec In Lab Abdoul Acuna MD HEMATOLOGY ORDERABLE S [facility] [place] [address] * (ABNORMAL) Hemogram (02/04/2022 2:11 PM EDT) [facility] White Blood Cell 8.1 4.0 - 9.5 x10(3)/mc L [facility] Red Blood Cell 4.30 4.00 - 5.21 x10(6)/mc L [facility] Hemoglobin 12.0 11.7 - 15.5 g/dL [facility] Hematocrit 38.2 35.7 - 45.8 % [facility] Mean Cell Volume 88.8 82.6 - 94.[address] [facility] Mean Cell Hemoglobin 27.9 27.1 - 32.[address] [facility] Mean Cell Hemoglobin Concentration 31.4(L) 31.7 - 35.0 g/dL [facility] Platelet 211 145 - 357 x10(3)/mc L [facility] RDW Standard Deviation 46.6(H) 37.0 - 46.[address] [facility] RDW coefficient of variation 14.4(H) 11.5 - 14.1 % [facility] Mean Platelet Volume 10.0 7.6 - 12.[address] [facility] NRBC% auto 0.0 % [facility] NRBC Absolute 0.000 0.000 - 0.000 x10(3)/mc L [facility] Blood 02/04/2022 2:11 PM EDT 02/04/2022 2:19 PM EDT Narrative Resulting Agency Comment Spec In Lab Abdoul Acuna MD HEMATOLOGY ORDERABLE S [facility] [address] * (ABNORMAL) Basic Metabolic Panel (non-fasting) (02/04/2022 2:11 PM EDT) Glucose 90 65 - 199 mg/dL [facility] Comment:Diabetes: >=200 mg/d L plus symptoms Blood Urea Nitrogen 26(H) 8 - 18 mg/dL [facility] Creatinine 1.67(H) 0.70 - 1.20 mg/dL [facility] Sodium 142 135 - 145 mmol/L [facility] Potassium 4.2 3.5 - 5.0 mmol/L [facility] Comment: Please note: ??Patients with WBC >100,000 may have falsely elevated Potassium levels. ??For accurate Potassium quantification in these patients send serum separator tube (gold top) for subsequent determinations. ??Contact the Clinical Chemistry Laboratory if there are any questions. Chloride 108(H) 98 - 107 mmol/L [facility] Carbon Dioxide 24 22 - 31 mmol/L [facility] Anion Gap 10 5 - 15 mmol/L [facility] Calcium 9.4 8.5 - 10.5 mg/dL [facility] Est Glomerular Filtration Rate 33(L) >=60 mL/min/1. 73 m?? [facility] Comment: This patient's estimated GFR was calculated using the 2020 CKD-EPI equation. The estimated GFR can vary from the measured GFR by up to 30% in the absence of rapidly changing kidney function. Assessment of the estimated GFR is not appropriate when creatinine concentrations are rapidly changing. For clinical situations in which a more precise estimate of GFR is necessary, consider alternative methods of GFR estimation such as a 24-hour urine creatinine clearance. Assignment of CKD stage 1-5 for patients with an eGFR near the transition point between stages may be based on clinical assessment of muscle mass and symptoms in addition to eGFR. Blood 02/04/2022 2:11 PM EDT 02/04/2022 2:19 PM EDT Narrative Resulting Agency Comment Spec In Lab Abdoul Acuna MD CHEMISTRY ORDERABLES [facility] [address] * (ABNORMAL) PTH (02/04/2022 2:11 PM EDT) Parathyroid Hormone 94(H) 15 - 65 pg/mL [facility] Blood 02/04/2022 2:11 PM EDT 02/04/2022 2:19 PM EDT Narrative Resulting Agency Comment Spec In Lab Abdoul Acuna MD CHEMISTRY ORDERABLES [facility] [address] * Vitamin D, 25-Hydroxy (02/04/2022 2:11 PM EDT) Vitamin D Total 25 OH 37 21 - 100 ng/mL [facility] Vit D Interp Sufficient [facility] Blood 02/04/2022 2:11 PM EDT 02/04/2022 2:19 PM EDT Narrative Resulting Agency Comment Spec In Lab Abdoul Acuna MD CHEMISTRY ORDERABLES Performing Organization Address City/[facility]/ZIP Co de Phone Number [facility] [place] [address] * (ABNORMAL) Free Light Chains, Serum (02/04/2022 2:11 PM EDT) [place] Free Light Chain 3.43(H) 0.72 - 2.75 mg/dL [facility] Lambda Free Light Chain 2.52(H) 0.57 - 2.15 mg/dL [facility] [place]/Lambda FLC Ratio 1.3611 0.4000 - 2.5800 [facility] Blood 02/04/2022 2:11 PM EDT 02/04/2022 2:19 PM EDT Narrative Resulting Agency Comment Spec In Lab Abdoul Acuna MD CHEMISTRY ORDERABLES Performing Organization Address City/[facility]/ZIP Co de Phone Number [facility] [place] [address] documented in this encounter Visit Diagnoses Diagnosis Stage 3b chronic kidney disease Secondary hyperparathyroidism Secondary hyperparathyroidism (of renal origin) documented in this encounter Care Teams Tipple Operator Relationship Specialty Start Date End Date Shannon Fletcher, CUTTING AND PRINTING MACHINE OPERATOR [address] [facility] [place] [address] PCP - General Family Medicine 09/30/21 documented as of this encounter
--- OUTSIDE RECORDS SUMMARY | 2024-05-27 22:03 | XMS_ITS | Encounter Summary ---
[place] [address] Care Team Providers Care Production Administrator Name Role Phone Rina Hernandez APRN Primary Care Provider [phone] Encounter Details Date Type Department Care Team (Latest Contact Info) Description 04/08/2017 11:30 AM EDT Office Visit [place] [phone] Alta Camacho MD Chronic kidney disease, unspecified CKD stage; CKD (chronic kidney disease) stage 4, GFR [...] Sign Reading Time Taken Comments Blood Pressure 176/84 04/08/2017 7:58 AM EDT Pulse 60 04/08/2017 7:58 AM EDT Temperature - - Respiratory Rate - - Oxygen Saturation - - Inhaled Oxygen Concentration - - Weight 98.4 kg (217 lb) 04/08/2017 7:58 AM EDT Height 156.2 cm (5' 1.5) 04/08/2017 7:58 AM EDT Body Mass Index 40.34 04/08/2017 7:58 AM EDT documented in this encounter Progress Notes * Alta Camacho MD - 04/08/2017 11:30 AM EDT Renal and Hypertension 04/08/2017 History of Presenting Complaint including relevant review of systems This is a follow up visit to the Renal and Hypertension clinic for this 61 y.o. year old female referred by Rina Hernandez APRN Ms Jones reports that she has been well. Does not check BP at home. She denies urinary symptoms, orthopnea, BOSCH, periphearl edema Renal ultrasound is reviewed with pateint ?? 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 Ms Jones had taken lithium for 29 years. [place] was discontinued 2 years ago be because of concern for kidney function. She reports urinary frequency and nocturia ??2-3 as well as an episode of dehydration following surgery in the past. She denies tremor. She reports that her bipolar affective disorder is currently in remission. ?? Hypertension - not currently checking BP at home. Reports BP @ PCP office has been 130-14- systolic ?? No recent urinary tract infection ?? 2 para 2 [...] female in no acute distress Blood pressure 176/84, pulse 60, height 156.2 cm (5' 1.5), weight 98.4 kg (217 lb). There is no uremic fetor and no [...] angle tenderness. No masses or organsare palpated There is no tremor Gait is normal. Facies symmetrical. DORIAN, Mentation and speech are normal Labs: Reviewed outside laboratory values and data available in eDH. Notable for as above Results for ODILON JONES ( ) as of 04/08/2017 20:05 Ref. Range 02/13/2017 10:40 02/13/2017 12:14 04/08/2017 12:34 Sodium Latest Ref Range: 135 - 145 mmol/L 143 144 Potassium Latest Ref Range: 3.5 - 5.0 mmol/L 4.8 4.7 Chloride Latest Ref Range: 98 - 107 mmol/L 107 107 CO2 Latest Ref Range: 22 - 31 mmol/L 22 24 Anion Gap Latest Ref Range: 5 - 15 mmol/L 14 13 BUN Latest Ref Range: 8 - 18 mg/dL 26 (H) 28 (H) Creatinine Latest Ref Range: 0.70 - 1.20 mg/dL 1.76 (H) 1.77 (H) Estimated GFR Latest Ref Range: >=60 29 (L) 29 (L) Glucose Lvl Latest Ref Range: 65 - 199 mg/dL 96 94 Calcium Latest Ref Range: 8.5 - 10.5 mg/dL 9.7 9.7 Uric Acid Latest Ref Range: 2.5 - 6.5 mg/dL 7.6 (H) Total Prot Elec Latest Ref Range: 6.1 [...] Ref Range: 0 - 12 mg/dL 11 Results for ODILON JONES ( ) as of 04/08/2017 20:05 Ref. Range 02/13/2017 12:14 04/08/2017 12:34 WBC Latest Ref Range: 4.0 - 9.5 x10(3)/mcL 7.3 7.5 RBC Latest Ref Range: 4.00 - 5.21 x10(6)/mcL 4.16 4.35 Hemoglobin Latest Ref Range: 11.7 - 15.5 gm/dL 11.6 (L) 12.5 Hematocrit Latest Ref Range: 35.7 - 45.8 % 36.3 38.8 MCV Latest Ref Range: 82.6 - 94.4 fL 87.3 89.2 MCH Latest Ref Range: 27.1 - 32.0 pg 27.9 28.7 MCHC Latest Ref Range: 31.7 - 35.0 gm/dL 32.0 32.2 RDWSD Latest Ref Range: 37.0 - 46.0 fL 46.2 (H) 47.0 (H) RDWCV Latest Ref Range: 11.5 - 14.1 % 14.4 (H) 14.4 (H) Platelets Latest Ref Range: 145 - 357 x10(3)/mcL 196 206 MPV Latest Ref Range: 7.6 - 12.9 fL 10.6 10.6 nRBC % Auto Latest Units: % 0.0 0.0 nRBC Abs Auto Latest Ref Range: 0.000 - 0.000 x10(3)/mcL 0.000 0.000 Neutr Abs (ANC) Latest Ref Range: 1.70 - 6.10 x10(3)/mcL 4.96 4.46 Results for ODILON JONES ( ) as of 04/08/2017 20:05 Ref. Range 02/13/2017 12:14 04/08/2017 12:34 PTH Latest Ref Range: 15 - 65 pg/mL 94 (H) 114 (H) Radiology studies: Renal ultrasound images reviewed with patient. R 8.5 cm, L 9 cm. Bilateral cortical thinning, mildly increased echogenicity. No hydronephrosis Urinalysis and microscopy: Renal clinic laboratory Urine dipstick: negative for blood, trace protein, leucocytes Urine microscopy: Low and High power bobby Negative for cells,casts, crystals Assessment and Recommendations 1. Stable stage IV CK D secondary to chronic lithium nephrotoxicity. Ultrasound findings consistentwith this diagnsois There is no evidence of myeloma and no evidence of activeprimary renal disease. 2. No indication for IGGY, phosphate binder, 1,25-OH vitamin D at this time. PTH at target for stage4 CKD 3. Hypertension: BP elevated today, however, pateint reports well controlled 4. Recommend adequate hydration to maintain light colored urine particular during hot weather. Avoid nonsteroidal anti-inflammatory medications dietary fruit and vegetables sufficient to maintain serum potassium greater than 4 mEq per liter 5. I've asked the patient to have medications renewed by your office as needed 6. Return to clinic 6 months with CK D labs. Ordered.. I Thank you for referring this interesting patient documented in this encounter Plan of Treatment Not on file documented as of this encounter Procedures Procedure Name Priority Date/Time Associated Diagnosis Comments PTH Routine 04/08/2017 12:34 PM EDT CKD (chronic kidney disease) stage 4, GFR 15-29 ml/min Chronic kidney disease, unspecified CKD stage HEMOGRAM Routine 04/08/2017 12:34 PM EDT CKD (chronic kidney disease) stage 4, GFR 15-29 ml/min Chronic kidney disease, unspecified CKD stage DIFFERENTIAL, AUTOMATED Routine 04/08/2017 12:34 PM EDT CKD (chronic kidney disease) stage 4, GFR 15-29 ml/min Chronic kidney disease, unspecified CKD stage VITAMIN D, 25-HYDROXY Routine 04/08/2017 12:34 PM EDT CKD (chronic kidney disease) stage 4, GFR 15-29 ml/min Chronic kidney disease, unspecified CKD stage CBC (WITH DIFF) Routine 04/08/2017 12:34 PM EDT CKD (chronic kidney disease) stage 4, GFR 15-29 ml/min Chronic kidney disease, unspecified CKD stage URIC ACID Routine 04/08/2017 12:34 PM EDT CKD (chronic kidney disease) stage 4, GFR 15-29 ml/min Chronic kidney disease, unspecified CKD stage BASIC METABOLIC PANEL Routine 04/08/2017 12:34 PM EDT CKD (chronic kidney disease) stage 4, GFR 15-29 ml/min Chronic kidney disease, unspecified CKD stage U ALBUMIN/CRE RATIO Routine 04/08/2017 1 1:30 AM EDT Chronic kidney disease, unspecified CKD stage CKD (chronic kidney disease) stage 4, GFR 15-29 ml/min documented in this encounter Results * (ABNORMAL) Differential, Automated (04/08/2017 12:34 PM EDT) Neutrophil % 59.8 % [facility] Neutrophil Absolute 4.46 1.70 - 6.10 x10(3)/mc L [facility] Lymph % 28.2 % [facility] Lymphocytes Abs 2.1 0.9 - 3.2 x10(3)/mc L [facility] Monocyte % 5.2 % [facility] Monocyte Abs 0.4 0.3 - 0.9 x10(3)/mc L [facility] Eos % 4.7 % [facility] Eosinophils Abs 0.4 0.0 - 0.4 x10(3)/mc L [facility] Basophil % 1.2 % [facility] Baso Absolute 0.1 0.0 - 0.1 x10(3)/mc L [facility] Immature Gran % 0.90 % [facility] Comment: Immature granulocytes(IG's)percentage and absolute count will include metamyelocytes, myelocytes, and promyelocytes. Blood smears from CBCs yielding IG's will be scanned manually for concordance. If this scan disagrees with the automated IG or if promyelocytes are noted, a manual differential will be performed. Immature Gran Absolute 0.07(H) 0.00 - 0.04 x10(3)/mc L [facility] Blood specimen (specimen) 04/08/2017 12:34 PM EDT 04/08/2017 12:41 PM EDT Narrative Resulting Agency Comment Spec In Lab Alta Camacho MD HEMATOLOGY ORDERABLE S Performing Organization Address City/[facility]/ZIP Co de Phone Number [facility] [place] [address] * (ABNORMAL) Hemogram (04/08/2017 12:34 PM EDT) White Blood Cell 7.5 4.0 - 9.5 x10(3)/ L [facility] Red Blood Cell 4.35 4.00 - 5.21 x10(6)/[facility] Hemoglobin 12.5 11.7 - 15.5 gm/dL [facility] Hematocrit 38.8 35.7 - 45.8 % [facility] Mean Cell Volume 89.2 82.6 - 94.4 [facility] Mean Cell Hemoglobin 28.7 27.1 - 32.0 pg [facility] Mean Cell Hemoglobin Concentration 32.2 31.7 - 35.0 gm/dL [facility] Platelet 206 145 - 357 x10(3)/[facility] RDW Standard Deviation 47.0(H) 37.0 - 46.0 [facility] RDW coefficient of variation 14.4(H) 11.5 - 14.1 % [facility] Mean Platelet Volume 10.6 7.6 - 12.9 [facility] NRBC% auto 0.0 % [facility] NRBC Absolute 0.000 0.000 - 0.000 x10(3)/[facility] Blood specimen (specimen) 04/08/2017 12:34 PM EDT 04/08/2017 12:41 PM EDT Narrative Resulting Agency Comment Spec In Lab Alta Camacho MD HEMATOLOGY ORDERABLE S [facility] [place] [address] * (ABNORMAL) Vitamin D, 25-Hydroxy (04/08/2017 12:34 PM EDT) Vitamin D Total 25 OH 27(L) 30 - 100 ng/mL [facility] Comment: Deficient <10 ng/mL Insufficient 10 to 29 ng/mL Sufficient 30 to 100 ng/mL Potential Intoxication >100 ng/mL According to the [place] National Osteoporosis Foundation, Vitamin D concentrations >30 ng/mL are sufficient to protect bone health. ??The National Kidney Foundation has similarly stated that patients with Vitamin D concentrations <30ng/mL should be considered to be insufficient or deficient. http://[employer]/nkf-guidelines http://[employer]/nejm-VitD [employer] Vitamin D Immunoassay detects both 25-OH Vitamin D2 and 25-OH Vitamin D3, but only a total Vitamin D concentration is reported. Blood specimen (specimen) 04/08/2017 12:34 PM EDT 04/08/2017 2:36 PM EDT Narrative Resulting Agency Comment Spec In Lab Alta Camacho MD CHEMISTRY ORDERABLES [facility] [place] [address] * (ABNORMAL) PTH (04/08/2017 12:34 PM EDT) Parathyroid Hormone 114(H) 15 - 65 pg/mL [facility] Blood specimen (specimen) 04/08/2017 12:34 PM EDT 04/08/2017 12:41 PM EDT Narrative Resulting Agency Comment Spec In Lab Alta Camacho MD CHEMISTRY ORDERABLES [facility] [place] [address] * (ABNORMAL) Uric acid (04/08/2017 12:34 PM EDT) Uric Acid 7.6(H) 2.5 - 6.5 mg/dL [facility] Blood specimen (specimen) 04/08/2017 12:34 PM EDT 04/08/2017 12:41 PM EDT Narrative Resulting Agency Comment Spec In Lab Alta Camacho MD CHEMISTRY ORDERABLES [facility] [place] [address] * (ABNORMAL) Basic Metabolic Panel (non-fasting) (04/08/2017 12:34 PM EDT) Glucose 94 65 - 199 mg/dL [facility] Comment:Diabetes: >=200 mg/d L plus symptoms Blood Urea Nitrogen 28(H) 8 - 18 mg/dL [facility] Creatinine 1.77(H) 0.70 - 1.20 mg/dL [facility] Comment: Please note that the pediatric reference intervals supplied above were not validated at [facility]. Results from pediatric patients should be interpreted in conjunction to the patient's age, height and muscle mass. Sodium 144 135 - 145 mmol/L [facility] Potassium 4.7 3.5 - 5.0 mmol/L [facility] Comment: Please note: ??Patients with WBC >100,000 may have falsely elevated Potassium levels. ??For accurate Potassium quantification in these patients send serum separator tube (gold top) for subsequent determinations. ??Contact the Clinical Chemistry Laboratory if there are any questions. Chloride 107 98 - 107 mmol/L [facility] Carbon Dioxide 24 22 - 31 mmol/L [facility] Anion Gap 13 5 - 15 mmol/L [facility] Calcium 9.7 8.5 - 10.5 mg/dL [facility] Est Glomerular Filtration Rate 29(L) >=60 [facility] Comment: This estimated GFR (eGFR) [...] the following links into your internet browser. http://[employer]/DHnkdep http://[employer]/DHMCnkf Blood specimen (specimen) 04/08/2017 12:34 PM EDT 04/08/2017 12:41 PM EDT Narrative Resulting Agency Comment Spec In Lab Alta Camacho MD CHEMISTRY ORDERABLES Performing Organization Address City/[facility]/ZIP Co de Phone Number [facility] [place] [address] * (ABNORMAL) U Albumin/Cre Ratio (04/08/2017 11:30 AM EDT) Albumin / Creatinin Ratio, Urine 62(H) 0 - 29 mcg/mg Cr [facility] Comment: Reference Ranges: <30 mcg/mg: Normal 30-300 mcg/mg: Moderately increased albuminuria.* >300 mcg/mg: Severely increased albuminuria. * ACEI or ARB recommended if diabetic; suggested if BP>130/80 without diabetes ACEI or ARB strongly recommended if diabetic; recommended if BP>130/80 without diabetes Two of three specimens collected within a 3 to 6 month period should be abnormal before considering a patient to have albuminuria. Transient causes: exercise, fever, infection, CHF, marked hyperglycemia or hypertension. Persistent albuminuria indicates CKD and is an independent risk factor for ASCVD. ADA Standards of Medical Care in Diabetes-2016; KDIGO: Kidney International Supplements (2012) 2, 357? 362 Albumin, Urine 30.0 mg/L [facility] Creatinine, Urine 48 mg/dL [facility] Urine specimen (specimen) 04/08/2017 11:30 AM EDT 04/08/2017 12:30 PM EDT Narrative Resulting Agency Comment Spec In Lab Alta Camacho MD URINE ORDERABLES Performing Organization Address City/[facility]/ZIP Co de Phone Number [facility] [place] [address] documented in this encounter Visit Diagnoses Diagnosis Chronic kidney disease, unspecified CKD stage CKD (chronic kidney disease) stage 4, GFR 15-29 ml/min Chronic kidney disease, Stage IV (severe) documented in this encounter Care Teams Production Administrator Relationship Specialty Start Date End Date Rina Hernandez APRN [address] [place] [address] PCP - General Family Medicine 01/02/17 09/29/21 documented as of this encounter
--- OUTSIDE RECORDS SUMMARY | 2024-05-27 22:03 | XMS_ITS | Encounter Summary ---
[place] [address] Care Team Providers Care Trial Attorney Name Role Phone Chance Shannon Ramachandran APRN Primary Care Provider [phone] Encounter Details Date Type Department Care Team (Latest Contact Info) Description 04/05/2024 10:00 AM EDT Laboratory Appointment Lab [address] [place] [id number] CKD (chronic kidney disease) stage 4, GFR 15-29 ml/min; Secondary hyperparathyroidism Social History Tobacco Use Types [...] Priority Date/Time Associated Diagnosis Comments PTH Routine 04/05/2024 10:23 AM EDT CKD (chronic kidney disease) stage 4, GFR 15-29 ml/min Secondary hyperparathyroidism PROTEIN/CREATININ E RATIO, URINE Routine 04/05/2024 10:23 AM EDT CKD (chronic kidney disease) stage 4, GFR 15-29 ml/min Secondary hyperparathyroidism U ALBUMIN/CRE RATIO Routine 04/05/2024 10:23 AM EDT CKD (chronic kidney disease) stage 4, GFR 15-29 ml/min Secondary hyperparathyroidism VITAMIN D, 25-HYDROXY Routine 04/05/2024 10:23 AM EDT CKD (chronic kidney disease) stage 4, GFR 15-29 ml/min Secondary hyperparathyroidism CBC (WITH DIFF) Routine 04/05/2024 10:23 AM EDT CKD (chronic kidney disease) stage 4, GFR 15-29 ml/min Secondary hyperparathyroidism ALBUMIN LEVEL Routine 04/05/2024 10:23 AM EDT CKD (chronic kidney disease) stage 4, GFR 15-29 ml/min Secondary hyperparathyroidism BASIC METABOLIC PANEL Routine 04/05/2024 10:23 AM EDT CKD (chronic kidney disease) stage 4, GFR 15-29 ml/min Secondary hyperparathyroidism documented in this encounter Results * Protein/Creatinine Ratio, urine (04/05/2024 10:23 AM EDT) Protein, Urine 10 0 - 12 mg/dL 04/05/2024 6:25 PM EDT [facility] Creatinine, Urine 53 mg/dL 04/05/2024 6:25 PM EDT [facility] Protein / Creatinine Ratio, Urine 0.2 ratio 04/05/2024 6:25 PM EDT [facility] Urine Non Blood Collection / Unknown 04/05/2024 10:23 AM EDT 04/05/2024 10:23 AM EDT Abdoul Acuna MD URINE ORDERABLES [facility] [place] [address] * (ABNORMAL) U Albumin/Cre Ratio (04/05/2024 10:23 AM EDT) Albumin, Urine 41.8 mg/L 04/05/2024 6:25 PM EDT [facility] Creatinine, Urine 53 mg/dL 024 6:25 PM EDT [facility] Albumin / Creatinine Ratio, Urine 79(H) 0 - 29 mcg/mg Cr 04/05/2024 6:25 PM EDT [facility] Comment: Reference Ranges: ?? <30 mcg/mg: Normal ?? 30-300 mcg/mg: Moderately increased albuminuria.* ?? >300 mcg/mg: Severely increased albuminuria. ?? * ACEI or ARB recommended if diabetic; suggested if BP>130/80 without diabetes ?? ACEI or ARB strongly recommended if diabetic; recommended if BP>130/80 without diabetes ??Two of three specimens collected within a 3 to 6 month period should be abnormal before considering a patient to have albuminuria. Transient causes: exercise, fever, infection, CHF, marked hyperglycemia or hypertension. Persistent albuminuria indicates CKD and is an independent risk factor for ASCVD. ??ADA Standards of Medical Care in Diabetes-2016; KDIGO: Kidney International Supplements (2012) 2 ??357362 Urine Non Blood Collection / Unknown 04/05/2024 10:23 AM EDT 04/05/2024 10:23 AM EDT Abdoul Acuna MD URINE ORDERABLES Performing Organization Address City/[facility]/ZIP Co de Phone Number [facility] [place] [address] * Vitamin D, 25-Hydroxy (04/05/2024 10:23 AM EDT) Pathologist [facility] Vitamin D Total 25 OH 40 21 - 100 ng/ml 04/05/2024 5:42 PM EDT [facility] Vitamin D Total 25 OH Interp Sufficient 04/05/2024 5:42 PM EDT [facility] Blood VENOUS BLOOD SPECIMEN / Unknown Venipuncture / Unknown 04/05/2024 10:23 AM EDT 04/05/2024 10:23 AM EDT Abdoul Acuna MD CHEMISTRY ORDERABLES [facility] [place] [address] * (ABNORMAL) PTH (04/05/2024 10:23 AM EDT) Pathologist [facility] Parathyroid Hormone 155(H) 15 - 65 pg/mL 04/05/2024 11:08 AM EDT [facility] Blood VENOUS BLOOD SPECIMEN / Unknown Venipuncture / Unknown 04/05/2024 10:23 AM EDT 04/05/2024 10:23 AM EDT Abdoul Acuna MD CHEMISTRY ORDERABLES [facility] [place] [address] * (ABNORMAL) CBC (with Diff) (04/05/2024 10:23 AM EDT) [facility] White Blood Cell 9.26 4.00 - 9.50 x10(3)/mc L [facility] Red Blood Cell 4.12 4.00 - 5.21 x10(6)/mc L 04/05/2024 10:48 AM [facility] Hemoglobin 11.9 11.7 - 15.5 g/dL 04/05/2024 10:48 AM [facility] Hematocrit 38.8 35.7 - 45.8 % 04/05/2024 10:48 AM [facility] Mean Cell Volume 94.2 82.6 - 94.4 fL 04/05/2024 10:48 AM [facility] Mean Cell Hemoglobin 28.9 27.1 - 32.0 pg 04/05/2024 10:[facility] Mean Cell Hemoglobin Concentration 30.7(L) 31.7 - 35.0 g/dL 04/05/2024 10:48 AM [facility] Platelet 226 145 - 357 x10(3)/mc L 04/05/2024 10:48 AM [facility] Mean Platelet Volume 9.9 7.6 - 12.9 fL 04/05/2024 10:48 AM [facility] RDW Standard Deviation 48.0(H) 37.0 - 46.0 fL 04/05/2024 10:48 AM [facility] RDW coefficient of variation 13.8 11.5 - 14.1 % 04/05/2024 10:48 AM [facility] NRBC% auto 0.0 % 04/05/2024 10:48 AM [facility] NRBC Absolute 0.00 0.00 - 0.00 x10(3)/mc L 04/05/2024 10:48 AM [facility] Neutrophil % 55.9 % 04/05/2024 10:48 AM [facility] Neutrophil Absolute (ANC) - Automated 5.18 1.70 - 6.10 x10(3)/mc L 04/05/2024 10:48 AM [facility] Lymph % 32.4 % 04/05/2024 10:48 AM [facility] Lymph Absolute 3.00 0.90 - 3.20 x10(3)/mc L 04/05/2024 10:48 AM [facility] Monocyte % 6.0 % 04/05/2024 10:48 AM [facility] Monocyte Absolute 0.56 0.30 - 0.90 x10(3)/mc L 04/05/2024 10:48 AM [facility] Eos % 3.6 % 04/05/2024 10:48 AM [facility] Eos Absolute 0.33 0.00 - 0.40 x10(3)/mc L 04/05/2024 10:48 AM [facility] Basophil % 1.2 % 04/05/2024 10:48 AM [facility] Baso Absolute 0.11(H) 0.00 - 0.10 x10(3)/mc L 04/05/2024 10:48 AM [facility] Immature Gran % 0.9 % 10:48 AM [facility] Immature Gran Absolute 0.08(H) 0.00 - 0.04 x10(3)/mc L 04/05/2024 10:48 AM EDT [facility] Blood VENOUS BLOOD SPECIMEN / Unknown Venipuncture / Unknown 04/05/2024 10:23 AM EDT 04/05/2024 10:23 AM EDT Abdoul Acuna MD HEMATOLOGY ORDERABLE S [facility] [place] [address] * Albumin Level (04/05/2024 10:23 AM EDT) Albumin 4.2 3.2 - 5.2 g/dL 04/05/2024 11:10 AM EDT [facility] Blood VENOUS BLOOD SPECIMEN / Unknown Venipuncture / Unknown 04/05/2024 10:23 AM EDT 04/05/2024 10:23 AM EDT Abdoul Acuna MD CHEMISTRY ORDERABLES Performing Organization Address City/[facility]/ZIP Co de Phone Number [facility] [place] [address] * (ABNORMAL) Basic Metabolic Panel (non-fasting) (04/05/2024 10:23 AM EDT) Glucose 97 65 - 199 mg/dL 04/05/2024 11:10 AM EDT [facility] Comment:Glucose Concentratio n >=200 mg/dL plus symptoms is consistent with Diabetes Mellitus. Blood Urea Nitrogen 42(H) 8 - 18 mg/dL 04/05/2024 11:10 AM EDT [facility] Creatinine 2.42(H) 0.70 - 1.20 mg/dL 04/05/2024 11:10 AM EDT [facility] Sodium 142 135 - 145 mMol/L 04/05/2024 11:10 AM EDT [facility] Potassium 4.3 3.5 - 5.0 mMol/L 04/05/2024 11:10 AM EDT [facility] Chloride 103 98 - 107 mMol/L 04/05/2024 11:10 AM EDT [facility] Carbon Dioxide 27 22 - 31 mMol/L 04/05/2024 11:10 AM EDT [facility] Anion Gap 12 5 - 15 mMol/L 04/05/2024 11:10 AM EDT [facility] Calcium 9.5 8.5 - 10.5 mg/dL 04/05/2024 11:10 AM EDT [facility] Est Glomerular Filtration Rate - Female 21 mL/min/1. 73 m?? 04/05/2024 11:10 AM T [facility] Comment: This patient's estimated GFR [...] urine creatinine clearance. Assignment of CKD stage 1 - 5 for patients with an eGFR near the transition point between stages may be based on clinical assessment of muscle mass and symptoms in addition to eGFR. Link: eGFR Calculator [employer] Fasting Status No 04/05/2024 11:10 AM T [facility] Blood VENOUS BLOOD SPECIMEN / Unknown Venipuncture / Unknown 04/05/2024 10:23 AM EDT 04/05/2024 10:23 AM EDT Abdoul Acuna MD CHEMISTRY ORDERABLES [facility] [place] [address] documented in this encounter Visit Diagnoses Diagnosis CKD (chronic kidney disease) stage 4, GFR 15-29 ml/min Chronic kidney disease, Stage IV (severe) Secondary hyperparathyroidism Secondary hyperparathyroidism (of renal origin) documented in this encounter Care Teams Trial Attorney Relationship Specialty Start Date End Date Shannon Fletcher, [employer]PER[employer] [address] [address] PCP - General Family Medicine 09/30/21 documented as of this encounter
--- OUTSIDE RECORDS SUMMARY | 2024-05-27 22:03 | XMS_ITS | Encounter Summary ---
Author Organization [facility] [place] [address] Care Team Providers Care Slab Off Mill Tender Name Role Phone IselaRina hood [employer] GLAZIER Primary Care Provider [phone] Encounter Details Date Type Department Care Team (Latest Contact Info) Description 04/08/2017 10:19 AM EDT - 04/08/2017 11:59 PM EDT Hospital En[place] [phone] Rolf Camacho MD CKD (chronic kidney disease) stage 4, GFR 15-29 ml/min Discharge Disposition: Home Social History Tobacco Use Types Packs/Day Years Used Date Smoking Tobacco: Never Smokeless Tobacco: Never Alcohol Use Standard Drinks/Week Comments No 0 (1 standard drink = 0.6 oz pur e alcohol) Sex and Gender Information Value Date Recorded Sex Assigned at Not on file Gender Identity Not on file Sexual Orientation Not on file documented as of this encounter Medications at Time of Discharge Medication Sig Dispensed Refills Start Date End Date multivitamin with minerals TabletIndications:Chronic kidney disease, unspecified CKD stage,CKD (chronic kidney disease) stage 4, GFR 15-29 ml/min Take 1 tablet by mouth daily. valACYclovir (VALTREX) 500 mg TabletIndications:CKD (chronic kidney disease) stage 4, GFR 15-29 ml/min Take 500 mg by mouth daily. 0 01/28/2017 labetalol (NORMODYNE) 100 mg TabletIndications:CKD (chronic kidney disease) stage 4, GFR 15-29 ml/min 100 MG-AM, 50 MG-PM 0 12/27/19 17 06/15/2023 lisinopril (PRINIVIL;ZESTRIL) 10 mg TabletIndications:CKD (chronic kidney disease) stage 4, GFR 15-29 ml/min 10 mg daily. 0 12/25/2016 documented as of this encounter Plan of Treatment Not on file documented as of this encounter Procedures Procedure Name Priority Date/Time Associated Diagnosis Comments US RETROPERITONEAL COMPLETE Routine 04/08/2017 11:12 AM EDT CKD (chronic kidney disease) stage 4, GFR 15-29 ml/min documented in this encounter Results * US Retroperitoneal Complete (04/08/2017 11:12 AM [...] 11:42 am) PATIENT INFO: ID #: ? [id number] ?: ??[birth year] (61 yrs) Name: ? ODILON JONES ?Visit Date: 04/08/2017 11:09 am PERFORMED BY: Performed By: ? Ana Lilia Sanchez RDMS Attending: ?Denys DE LEÓN, Jie Merrill Resident: ? Rosa Maharaj MD Referred By: ?ROLF CAMACHO Location: ? [place] SERVICE(S) PROVIDED: ??URETRO - Retroperitoneal Complete - [id number] ? [id number] INDICATIONS: ??CKD COMPARISON: No prior studies for [...] 04/08/2017 11:42 am) PATIENT INFO: ID #: [id number] : [birth year] (61 yrs) Name: ODILON JONES Visit Date: 04/08/2017 11:09 am PERFORMED BY: Performed By: Ana Lilia Sanchez RDMS Attending: Jie Mcfarlane MD Resident: Rosa Maharaj MD Referred By: ROLF CAMACHO Location: [place] SERVICE(S) PROVIDED: URETRO - Retroperitoneal Complete - [id number] INDICATIONS: CKD COMPARISON: No prior studies for [...] Camacho MD IMG US GEN ORDERABLE S documented in this encounter Visit Diagnoses Diagnosis CKD (chronic kidney disease) stage 4, GFR 15-29 ml/min Chronic kidney disease, Stage IV (severe) documented in this encounter Care Teams Slab Off Mill Tender Relationship Specialty Start Date End Date Rina Hernandez, IGNACIO [address] [place] [address] PCP - General Family Medicine 01/02/17 09/29/21 documented as of this encounter
--- OUTSIDE RECORDS SUMMARY | 2024-05-27 22:03 | XMS_ITS | Encounter Summary ---
Author Organization [facility] [place] [address] Care Team Providers Care Insurance Verification Clerk Name Role Phone Shannon Fletcher APRN Primary Care Provider [phone] Reason for Visit * Reason Onset Date Comments Medication Refill 01/19/2024 Encounter Details Date Type Department Care Team (Late st Contact Info) Description 01/19/2024 Refill Nephrology [place] [address] Abdoul Acuna MD [facility] [place] [address] Social History Tobacco Use Types Packs/Day Years [...] on filedocumented in this encounter Care Teams Insurance Verification Clerk Relationship Specialty Start Date End Date Shannon Fletcher APR[place] [place] [address] PCP - General Family Medicine 09/30/21 documented as of this encounter
--- OUTSIDE RECORDS SUMMARY | 2024-05-27 22:03 | XMS_ITS | Encounter Summary ---
Author Organization [facility] [place] [address] Care Team Providers Care Machine Pecan Picker Name Role Phone Rina Hernandez APRN Primary Care Provider [phone] Encounter Details Date Type Department Care Team (Late st Contact Info) Description 09/20/2019 Telephone [place] [phone] Carmina Foster Social History Tobacco Use Types Packs/Day Years Used Date Smoking Tobacco: Never Smokeless Tobacco: Never Alcohol Use Standard Drinks/Week Comments No 0 (1 standard drink = 0.6 oz pur e alcohol) Sex and Gender Information Value Date Recorded Sex Assigned at Not on file Gender Identity Not on file Sexual Orientation Not on file documented as of this encounter Miscellaneous Notes * Telephone Encounter - Carmina Foster - 09/20/2019 2:47 PM EST LMOM for Pt to call and annie apt documented in this encounter Plan of Treatment Not on file documented as of this encounter Visit Diagnoses Not on filedocumented in this encounter Care Teams Machine Pecan Picker Relationship Specialty Start Date End Date Rina Hernandez APRN [address] [place] [address] PCP - General Family Medicine 01/02/17 09/29/21 documented as of this encounter
--- OUTSIDE RECORDS SUMMARY | 2024-05-27 22:03 | XMS_ITS | Encounter Summary ---
Author Organization [facility] [place] [address] Care Team Providers Care Multimedia Developer Name Role Phone Rina Hernandez APRN Primary Care Provider [phone] Encounter Details Date Type Department Care Team (Latest Contact Info) Description 06/02/2018 9:30 AM EDT Office Visit [place] [id number] Alta Camacho MD CKD (chronic kidney disease) stage [...] Sign Reading Time Taken Comments Blood Pressure 128/78 06/02/2018 8:59 AM EDT Pulse 64 06/02/2018 8:59 AM EDT Temperature - - Respiratory Rate - - Oxygen Saturation - - Inhaled Oxygen Concentration - - Weight 89.8 kg (198 lb) 06/02/2018 8:59 AM EDT Height 156.2 cm (5' 1.5) 06/02/2018 8:59 AM EDT Body Mass Index 36.81 06/02/2018 8:59 AM EDT documented in this encounter Progress Notes * Alta Camacho MD - 06/02/2018 9:30 AM EDT Renal and Hypertension 06/02/2018 History of Presenting Complaint including relevant review of systems This is a follow up visit to the Renal and Hypertension clinic for this 62 y.o. year old female referred by Rina Hernandez APRN Ms Jones reports that she has been well. Intentional 22 lb weight loss on a modified 'paleo' diet which she is tolerating well, and excercise. Has questions about suitability of this diet. Discussed that this diet is reasonable and not harmful in renal disease. She denies current urinary symptoms, orthopnea, BOSCH, peripheral edema.Home BP 120/84 ?? 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 Ms Jones had taken lithium for 29 years. [place] was discontinued 2 years ago be because [...] Regular low carbohydrate Other Medications Current Outpatient Medications Medication Sig Dispense Refill ??? multivitamin with minerals Tablet Take 1 tablet by mouth daily. ??? labetalol (NORMODYNE) 100 mg Tablet 100 [...] examination This is a pleasant, well- appearing 62 y.o. female in no acute distress Blood pressure 128/78, pulse 64, height 156.2 cm (5' 1.5), weight 89.8 kg (198 lb). There is no uremic fetor and [...] outside laboratory values and data available in eD. Notable for as above Results for ODILON JONES ( ) as of 06/02/2018 09:28 Ref. Range 02/13/2017 10:40 02/13/2017 12:14 04/08/2017 12:34 06/02/2018 08:44 Sodium Latest Ref Range: 135 - 145 mmol/L 143 144 145 Potassium Latest Ref Range: 3.5 - 5.0 mmol/L 4.8 4.7 4.6 Chloride Latest Ref Range: 98 - 107 mmol/L 107 107 107 CO2 Latest Ref Range: 22 - 31 mmol/L 22 24 24 Anion Gap Latest Ref Range: 5 - 15 mmol/L 14 13 14 BUN Latest Ref Range: 8 - 18 mg/dL 26 (H) 28 (H) 34 (H) Creatinine Latest Ref Range: 0.70 - 1.20 mg/dL 1.76 (H) 1.77 (H) 1.65 (H) eGFR Latest Ref Range: >=60 mL/min/1.73 m?? 29 (L) 29 (L) 32 (L) eGFR Latest Ref Range: >=60 mL/min/1.73 m?? 38 (L) Glucose Lvl Latest Ref Range: 65 - 199 mg/dL 96 94 109 Calcium Latest Ref Range: 8.5 - 10.5 mg/dL 9.7 9.7 9.9 Phosphorus Latest Ref Range: 2.5 - 4.5 mg/dL 4.2 Uric Acid Latest Ref Range: 2.5 - 6.5 mg/dL 7.6 (H) 6.6 (H) Albumin Latest Ref Range: 3.2 - 5.2 gm/dL 4.3 25-OH Vit D Total Latest Ref Range: 30 - 100 ng/mL 27 (L) Total Prot Elec Latest Ref Range: 6.1 [...] for ODILON JONES ( ) as of 06/02/2018 09:28 Ref. Range 02/13/2017 12:14 04/08/2017 12:34 06/02/2018 08:44 WBC Latest Ref Range: 4.0 - 9.5 x10(3)/mcL 7.3 7.5 7.5 RBC Latest Ref Range: 4.00 - 5.21 x10(6)/mcL 4.16 4.35 4.38 Hemoglobin Latest Ref Range: 11.7 - 15.5 gm/dL 11.6 (L) 12.5 12.2 Hematocrit Latest Ref Range: 35.7 - 45.8 % 36.3 38.8 38.0 MCV Latest Ref Range: 82.6 - 94.4 fL 87.3 89.2 86.8 MCH Latest Ref Range: 27.1 - 32.0 pg 27.9 28.7 27.9 MCHC Latest Ref Range: 31.7 - 35.0 gm/dL 32.0 32.2 32.1 RDWSD Latest Ref Range: 37.0 - 46.0 fL 46.2 (H) 47.0 (H) 44.8 RDWCV Latest Ref Range: 11.5 - 14.1 % 14.4 (H) 14.4 (H) 14.1 Platelets Latest Ref Range: 145 - 357 x10(3)/mcL 196 206 199 MPV Latest Ref Range: 7.6 - 12.9 fL 10.6 10.6 10.7 nRBC % Auto Latest Units: % 0.0 0.0 0.0 nRBC Abs Auto Latest Ref Range: 0.000 - 0.000 x10(3)/mcL 0.000 0.000 0.000 Neutr Abs (ANC) Latest Ref Range: 1.70 - 6.10 x10(3)/mcL 4.96 4.46 5.32 Results for ODILON JONES ( ) as of 06/02/2018 09:28 Ref. Range 02/13/2017 12:14 04/08/2017 12:34 PTH Latest Ref Range: 15 - 65 pg/mL 94 (H) 114 (H) Radiology studies: Renal ultrasound images reviewed with patient. R 8.5 cm, L 9 cm, Bilateral cortical thinning, mildly increased echogenicity. No hydronephrosis. Appearance consistent with chronic injury secondary to lithium Urinalysis and microscopy: Renal clinic laboratory Urine dipstick: negative for blood, trace protein, leucocytes Urine microscopy: Low and High power bobby Negative for cells,casts, crystals Assessment and Recommendations 1. 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 Ultrasound findings consistent with this diagnsois There is no evidence of myeloma and no evidence of activeprimary renaldisease. 2. No indication for IGGY, phosphate binder, 1,25-OH vitamin D at this time. PTH at target for stage4 CKD 3. Hypertension: BP well Controlled on current medications 4. Discussed adequate hydration to maintain light colored urine particular during hot weather. Avoid nonsteroidal anti-inflammatory medications dietary fruit and vegetables sufficient to maintain serum potassium greater than 4 mEq per liter 5. I have asked the patient to have medications renewed by your office as needed 6. Return to clinic 1 year with CK D labs. Ordered.. I Thank you for referring this interesting patient documented in this encounter Plan of Treatment Not on file documented as of this encounter Procedures Procedure Name Priority Date/Time Associated Diagnosis Comments U ALBUMIN/CRE RATIO Routine 06/02/2018 9 :30 AM EDT CKD (chronic kidney disease) stage 4, GFR 15-29 ml/min documented in this encounter Results * (ABNORMAL) U Albumin/Cre Ratio (06/02/2018 9:30 AM EDT) Albumin / Creatinin Ratio, Urine 50(H) 0 - 29 mcg/mg Cr [facility] Comment: Reference Ranges: <30 mcg/mg: [...] Supplements (2012) 2, 357? 362 Albumin, Urine 37.2 mg/L [facility] Creatinine, Urine 75 mg/dL [facility] Urine specimen (specimen) 06/02/2018 9:30 AM EDT 06/02/2018 12:58 PM EDT Narrative Resulting Agency Comment Spec In Lab Alta Camacho MD URINE ORDERABLES Performing Organization Address City/[facility]/ZIP Co de Phone Number [facility] [place] [address] * Phosphorus (06/02/2018 8:44 AM EDT) Pathologist [facility] Phosphorus 4.2 2.5 - 4.5 mg/dL [facility] Blood specimen (specimen) 06/02/2018 8:44 AM EDT 06/02/2018 8:49 AM EDT Narrative Resulting Agency Comment Spec In Lab Alta Camacho MD CHEMISTRY ORDERABLES Performing Organization Address City/[facility]/ZIP Co de Phone Number [facility] [place] [address] * (ABNORMAL) Uric acid (06/02/2018 8:44 AM EDT) Pathologist [facility] Uric Acid 6.6(H) 2.5 - 6.5 mg/dL [facility] Blood specimen (specimen) 06/02/2018 8:44 AM EDT 06/02/2018 8:49 AM EDT Narrative Resulting Agency Comment Spec In Lab Alta Camacho MD CHEMISTRY ORDERABLES Performing Organization Address City/[facility]/ZIP Co de Phone Number [facility] [place] [address] * Albumin Level (06/02/2018 8:44 AM EDT) Albumin 4.3 3.2 - 5.2 gm/dL [facility] Blood specimen (specimen) 06/02/2018 8:44 AM EDT 06/02/2018 8:49 AM EDT Narrative Resulting Agency Comment Spec In Lab Alta Camacho MD CHEMISTRY ORDERABLES Performing Organization Address [facility] Co de Phone Number [facility] [place] [address] * (ABNORMAL) PTH (06/02/2018 8:44 AM EDT) Parathyroid Hormone 77(H) 15 - 65 pg/mL [facility] Blood specimen (specimen) 06/02/2018 8:44 AM EDT 06/02/2018 8:49 AM EDT Narrative Resulting Agency Comment Spec In Lab Alta Camacho MD CHEMISTRY ORDERABLES Performing Organization Address City/[facility] Co de Phone Number [facility] [place] [address] * (ABNORMAL) Basic Metabolic Panel (non-fasting) (06/02/2018 8:44 AM EDT) Glucose 109 65 - 199 mg/dL [facility] Comment:Diabetes: >=200 mg/d L plus symptoms Blood Urea Nitrogen 34(H) 8 - 18 mg/dL [facility] Creatinine 1.65(H) 0.70 - 1.20 mg/dL [facility] Sodium 145 135 - 145 mmol/L [facility] Potassium 4.6 3.5 - 5.0 mmol/L [facility] [...] - 15 mmol/L [facility] Calcium 9.9 8.5 - 10.5 mg/dL [facility] Est Glomerular Filtration Rate 32(L) >=60 mL/min/1. 73 m?? [facility] Comment: The eGFR was calculated using the CKD-EPI equation. As with all creatinine based estimates of kidney function, eGFR values calculated with the CKD-EPI equation are not accurate in patients with acute kidney failure, extremes of body mass or the acutely ill. [email or web address] eGFR 38(L) >=60 mL/min/1. 73 m?? [facility] Comment: The eGFR was calculated using the CKD-EPI equation. As with all creatinine based estimates of kidney function, eGFR values calculated with the CKD-EPI equation are not accurate in patients with acute kidney failure, extremes of body mass or the acutely ill. http://[email or web address] Blood specimen (specimen) 06/02/2018 8:44 AM EDT 06/02/2018 8:49 AM EDT Narrative Resulting Agency Comment Spec In Lab Alta Camacho MD CHEMISTRY ORDERABLES [facility] [place] [address] documented in this encounter Visit Diagnoses Diagnosis CKD (chronic kidney disease) stage 4, GFR 15-29 ml/min Chronic kidney disease, Stage IV (severe) documented in this encounter Care Teams Multimedia Developer Relationship Specialty Start Date End Date Rina Henrandez, IGNACIO [address] [place] [address] PCP - General Family Medicine 01/02/17 09/29/21 documented as of this encounter
--- OUTSIDE RECORDS SUMMARY | 2024-05-27 22:03 | XMS_ITS | Encounter Summary ---
Author Organization [facility] [place] [address] Care Team Providers Care Dog Catcher Name Role Phone Shannon Fletcher APRN Primary Care Provider [phone] Encounter Details Date Type Department Care Team (Late st Contact Info) Description 05/12/2023 Telephone [place] [phone] Carmina Foster Social History Tobacco Use Types [...] * Telephone Encounter - Carmina Foster - 05/12/2023 9:58 AM EDT Called patient to schedule a follow up appointment, pt is at work she will call our office once shegets home. Will wait for returned call documented in this encounter Plan of Treatment Not on file documented as of this encounter Visit Diagnoses Not on filedocumented in this encounter Care Teams Dog Catcher Relationship Specialty Start Date End Date Shannon Fletcher [place] [address] [place] [address] PCP - General Family Medicine 09/30/21 documented as of this encounter
--- OUTSIDE RECORDS SUMMARY | 2024-05-27 22:03 | XMS_ITS | Encounter Summary ---
Author Organization [facility] [place] [address] Care Team Providers Care Advanced Practice Professional Name Role Phone Rina Hernandez APRN Primary Care Provider [phone] Encounter Details Date Type Department Care Team ([facility] st Contact Info) Description 01/10/2020 Telephone [place] [phone] Carmina Singer Social History Tobacco Use Types Packs/Day Years [...] Miscellaneous Notes * Telephone Encounter - Carmina Singer - 01/10/2020 2:43 PM EDT Recall Information: Recall Date: 06/28/19 Provider: Visit Type: OV Reason/Notes: f/u 1 year w/labs Communication History: ser: CARMINA SINGER Date/time: 01/10/20 2:42 PM Comment: LMOM x2 Context: Kasie Recall Report Outcome: Left Message Phone number: [phone] Phone Type: ?? Comm. type: Telephone Call type: Outgoing Contact: Micaela Ambrocio I Relation to patient: Self User: CARMINA SINGER Date/time: 01/10/20 2:42 PM Comment: Letter sent x2 Context: Kasie Recall Report Outcome: No Answer - Letter Sent Phone number: [phone] Phone Type: ?? Comm. type: Telephone Call type: Outgoing Contact: Micaela Ambrocio I Relation to patient: Self User: MARIA MOJICA Date/time: 12/05/19 8:52 AM Comment: Letter sent x's 1 Context: Kasie Recall Report Outcome: No Answer - Letter Sent Phone number: [phone] Phone Type: ?? Comm. type: Telephone Call type: Outgoing Contact: Micaela Ambrocio I Relation to patient: Self User: JOSE GRAHAM Date/time: 12/02/19 9:59 AM Comment: LMOM x1 Context: Kasie Recall Report Outcome: Left Message Phone number: [phone] Phone Type: Home Phone Comm. type: Telephone Call type: Outgoing Contact: Micaela Ambrocio I Relation to patient: Self User: CARMINA SINGER Date/time: 09/20/19 2:47 PM Comment: ?? Context: Kasie Recall Report Outcome: Left Message Phone number: [phone] Phone Type: ?? Comm. type: Telephone Call type: Outgoing Contact: Micaela Ambrocio I Relation to patient: Self documented in this encounter Plan of Treatment Not on file documented as of this encounter Visit Diagnoses Not on filedocumented in this encounter Care Teams Advanced Practice Professional Relationship Specialty Start Date End Date Rina Hernandez APRN [address] [place] [address] PCP - General Family Medicine 01/02/17 09/29/21 documented as of this encounter
--- OUTSIDE RECORDS SUMMARY | 2024-05-27 22:03 | XMS_ITS | Encounter Summary ---
Author Organization [facility] [place] [address] Care Team Providers Care Supervisor Fabrication And Assembly Name Role Phone Chance Shannon Ramachandran APRN Primary Care Provider [phone] Encounter Details Date Type Department Care Team (Latest Contact Info) Description 04/05/2024 11:30 AM EDT Office Visit [place] [address] Abdoul Acuna MD [facility] [place] [address] CKD (chronic kidney disease) stage 4, GFR 15-29 ml/min; Hypertension, unspecified type; Hyperparathyroidism Social History Tobacco Use Types Packs/Day Years [...] Sign Reading Time Taken Comments Blood Pressure 128/64 04/05/2024 11:13 AM EDT Pulse 58 04/05/2024 11:13 AM EDT Temperature - - Respiratory Rate - - Oxygen Saturation 98% 04/05/2024 11:13 AM EDT Inhaled Oxygen Concentration - - Weight 101.6 kg (224 lb) 04/05/2024 11:13 AM EDT Height - - Body Mass Index 41.64 11/17/2022 3:25 PM EDT documented in this encounter Patient Instructions * Patient Instructions* Abdoul Acuna MD - 04/05/2024 11:30 AM EDT Take Farxiga 1 tablet 3 times a week for 2 months and if you are tolerating it take it daily. # Patients on SGLT-2 inhibitors dapagliflozin (Farxiga), should stop taking medications, including combination containing SGLT-2, 3 days prior to the procedure.Patients experiencing metabolically stressful events are at increased risk of ketoacidosis (eg. surgery, myocardial infarction, stroke, severe infections, and prolonged fasting) and should hold this medications during the event. documented in this encounter Progress Notes * Abdoul Acuna MD - 04/05/2024 11:30 AM EDT HYPERTENSION/ NEPHROLOGY PROGRESS NOTE PATIENT: Micaela Ambrocio : 1955 REASON FOR CONSULTATION: Consulted for renal insufficiency HPI: Micaela Ambrocio is a 68 y.o. 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 Alta Camacho in May 2018, did not have further follow-up, but reestablished in the nephrology clinic. She was on lithium for almost 30 years for her bipolar disorder which she stopped 6 years ago and has not been on any mood stabilizers and has been doing all right. He has had HTN for approximately 10 years She does not have diabetes All parties consented to the use of BENJAMIN to document this visit. History of Present Illness The patient is a 68-year-old female who presents for evaluation of multiple medical concerns. She has been adhering to her prescribed medication regimen, which includes chlorthalidone 1 tablet,losartan 100 mg 1 tablet, and carvedilol 3.125 mg 1 tablet twice daily. She occasionally monitors her blood pressure at home, which typically reads in the 120s over 60s. She experienced a persistent cough while on lisinopril, but this resolved after switching to losartan. She does not frequently suffer from urinary tract infections and maintains good hydration by drinking ample water. She has never undergone testing for sleep apnea and is uncertain about whether she snores. FAMILY HISTORY Her is diabetic. There were no vitals taken for this visit. Physical Exam Clear lung bobby. Heart exhibits a systolic murmur in the aortic region. Lower extremities show no swelling, possibly trace edema at the sock line. Vital Signs Blood pressure reading is 128. Results Laboratory Studies Creatinine increased to 2.42 from 2.02. Albumin in urine has been high for a while. Parathyroid hormone is slightly elevated. Calcium level is slightly high. Assessment & Plan 1. Stage 4 Chronic Kidney Disease. The stage 4 CKD could be attributed to previous lithium intake or suboptimal blood pressure control. She is advised to continue her current regimen of losartan 100 mg, chlorthalidone 25 mg, carvedilol 3.125 mg twice a day, and statin. Farxiga will be initiated, to be taken three times a week for the initial months. If tolerated, the frequency can be increased to daily. Her blood pressure is well managed, with a slight increase in creatinine levels from 2.0 to 2.42, likely due to this control. Persistent proteinuria is noted. BMM-her parathyroid hormone levels are elevated, and her calcium levels are slightly above normal, suggesting possible primary hyperparathyroidism. Renal ultrasound-an ultrasound in 2014 revealed mild bladder wall thickening. She is cautioned about the potential for urinary tract infections and advised to maintain adequate hydration in the setting of Farxiga. Farxiga should be discontinued prior to any surgical procedures or in the event of an infection such as pneumonia or COVID-19, and can be resumed once her condition improves. Regular monitoring of her blood pressure is recommended. Follow-up A follow-up visit is scheduled in 4 months. A total of 40 minutes was spent for reviewing chart, [id number] encounter, ordering labs/medication,documentation in the chart, and coordinating care. documented in this encounter Plan of Treatment Scheduled Orders Name Type Priority Associated Diagnoses Orde r Schedule Basic Metabolic Panel Non-fasting Lab Routine CKD (chronic kidney disease) stage 4, GFR 15-29 ml/min Hypertension, unspecified type Hyperparathyroidism Expected: 06/04/2024 (Approximate), Expires: 04/05/2025 Albumin Level Lab Routine CKD (chronic kidney disease) stage 4, GFR 15-29 ml/min Hypertension, unspecified type Hyperparathyroidism Expected: 06/04/2024 (Approximate), Expires: 04/05/2025 CBC (with Diff) Lab Routine CKD (chronic kidney disease) stage 4, GFR 15-29 ml/min Hypertension, unspecified type Hyperparathyroidism Expected: 06/04/2024 (Approximate), Expires: 04/05/2025 PTH Lab Routine CKD (chronic kidney disease) stage 4, GFR 15-29 ml/min Hypertension, unspecified type Hyperparathyroidism Expected: 06/04/2024 (Approximate), Expires: 04/05/2025 Vitamin D, 25-Hydroxy Lab Routine CKD (chronic kidney disease) stage 4, GFR 15-29 ml/min Hypertension, unspecified type Hyperparathyroidism Expected: 06/04/2024 (Approximate), Expires: 12/04/2024 U Albumin/Cre Ratio Lab Routine CKD (chronic kidney disease) stage 4, GFR 15-29 ml/min Hypertension, unspecified type Hyperparathyroidism Expected: 06/04/2024 (Approximate), Expires: 12/04/2024 Protein/Creatinine Ratio, urine Lab Routine CKD (chronic kidney disease) stage 4, GFR 15-29 ml/min Hypertension, unspecified type Hyperparathyroidism Expected: 06/04/2024 (Approximate), Expires: 04/05/2025 documented as of this encounter Visit Diagnoses Diagnosis CKD (chronic kidney disease) stage 4, GFR 15-29 ml/min Chronic kidney disease, Stage IV (severe) Hypertension, unspecified type Hyperparathyroidism Hyperparathyroidism, unspecified documented in this encounter Care Teams Supervisor Fabrication And Assembly Relationship Specialty Start Date End [place] [address] PCP - General Family Medicine 09/30/21 documented as of this encounter
--- OUTSIDE RECORDS SUMMARY | 2024-05-27 22:03 | XMS_ITS | Encounter Summary ---
[place] [address] Care Team Providers Care Gauge Machine Operator Name Role Phone Shannon Fletcher APRN Primary Care Provider [phone] Reason for Referral * Consultation (Routine) - Closed Specialty Diagnoses / Procedures Referred By Christiano t Referred To Contact Nephrology Diagnoses Chronic kidney disease, stage IV (severe) Shannon Fletcher APRN [address] [place] [address] [facility] [address] [place] [id number] Referral ID Status Reason Start Date Expiration Date V isits Requested Visits Authorized [id number] Closed Consult, Test & Treat PCP Updated and/or Approved 09/30/2021 09/30/2022 6 6 Encounter Details Date Type Department Care Team (Latest Contact Info) Description 09/30/2021 [place] [address] Shannon Fletcher APRN [address] [place] [address] Chronic kidney disease, stage IV (severe) Social History Tobacco Use Types Packs/Day Years Used Date Smoking Tobacco: Never Smokeless Tobacco: Never Alcohol Use Standard Drinks/Week Comments No 0 (1 standard drink = 0.6 oz pur e alcohol) Sex and Gender Information Value Date Recorded Sex Assigned at Not on file Gender Identity Not on file Sexual Orientation Not on file documented as of this encounter Plan of Treatment Scheduled Referrals Name Type Priority Associated Diagnoses Order Schedule Referral to Nephrology Outpatient Referral Routine Chronic kidney disease, stage IV (severe) Ordered: 09/30/2021 documented as of this encounter Visit Diagnoses Diagnosis Chronic kidney disease, stage IV (severe) Chronic kidney disease, Stage IV (severe) documented in this encounter Care Teams Gauge Machine Operator Relationship Specialty Start Date End Date Shannon Fletcher, BILINGUAL ADMINISTRATIVE ASSISTANT [place] [address] [place] [address] PCP - General Family Medicine 09/30/21 documented as of this encounter
--- OUTSIDE RECORDS SUMMARY | 2024-05-27 22:03 | XMS_ITS | Encounter Summary ---
Author Organization [facility] [place] [address] Care Team Providers Care Drying Room Attendant Name Role Phone Shannon Fletcher APRN Primary Care Provider [phone] Encounter Details Date Type Department Care Team (Late st Contact Info) Description 09/03/2023 Orders Only [place] [address] Abdoul Acuna MD [facility] [place] [address] Social History Tobacco Use Types Packs/Day Years Used Date Smoking Tobacco: Never Smokeless Tobacco: Never Alcohol Use Standard Drinks/Week Comments No 0 (1 standard drink = 0.6 oz pur e alcohol) Sex and Gender Information Value Date Recorded Sex Assigned at Not on file Gender Identity Not on file Sexual Orientation Not on file documented as of this encounter Progress Notes * Abdoul Acuna MD - 09/03/2023 3:44 PM EST Patient called and informed our psychiatry that she has severe cough after her lisinopril was increased. I tried to reach her back, and left a voice message . I will change lisinopril to losartan. documented in this encounter Plan of Treatment Not on file documented as of this encounter Visit Diagnoses Not on filedocumented in this encounter Care Teams Drying Room Attendant Relationship Specialty Start Date End Date Shannon Fletcher [place] [address] PCP - General Family Medicine 09/30/21 documented as of this encounter
--- OUTSIDE RECORDS SUMMARY | 2024-05-27 22:03 | XMS_ITS | Encounter Summary ---
Author Organization [facility] Address [facility] [place] [address] Care Team Providers Care Research And Development Scientist Name Role Phone ChanceShannon APRN Primary Care Provider [phone] Encounter Details Date Type Department Care Team (Late st Contact Info) Description 06/30/2023 Telephone [place] [address] Abdoul Acuna MD [facility] [place] [address] Social History Tobacco Use Types Packs/Day Years [...] encounter Miscellaneous Notes * Telephone Encounter - Abdoul Acuna MD - 06/30/2023 4:31 PM EST Patient called our office and informed that her blood pressure is running high. Her blood pressure is running between 1 70-200 systolic and diastolic in the 90- 100 range. Currently on lisinopril 20 mg p.o. twice daily and carvedilol 3.125 mg p.o. twice daily. -We will start her on chlorthalidone 25 mg p.o. daily. We will get renin, aldosterone/BMP in 2 weeks time, which she wants to do it in [place]. She was advised to call back if her blood pressure is is still running high. documented in this encounter Plan of Treatment Scheduled Orders Name Type Priority Associated Diagnoses Orde r Schedule Aldosterone Lab Routine CKD (chronic kidney disease) stage 4, GFR 15-29 ml/min Hypertension secondary to other renal disorders Expected: 07/14/2023 (Approximate), Expires: 12/28/2024 Basic Metabolic Panel (non-fasting) Lab Routine CKD (chronic kidney disease) stage 4, GFR 15-29 ml/min Hypertension secondary to other renal disorders Expected: 07/14/2023 (Approximate), Expires: 06/30/2024 documented as of this encounter Visit Diagnoses Diagnosis CKD (chronic kidney disease) stage 4, GFR 15-29 ml/min Chronic kidney disease, Stage IV (severe) Hypertension secondary to other renal disorders documented in this encounter Care Teams Research And Development Scientist Relationship Specialty Start Date End Date Shannon Fletcher [place] [address] [place] [address] PCP - General Family Medicine 09/30/21 documented as of this encounter
--- OUTSIDE RECORDS SUMMARY | 2024-05-27 22:03 | XMS_ITS | Encounter Summary ---
Author Organization [facility] [place] [address] Care Team Providers Care Audio Visual Manager Name Role Phone Chance, Shannon Ramachandran APRN Primary Care Provider [phone] Encounter Details Date Type Department Care Team (Latest Contact Info) Description 11/17/2022 4:00 PM EDT Office Visit Nephrology [place] [address] Abdoul Acuna MD [facility] [place] [address] CKD (chronic kidney disease) stage 4, GFR [...] Sign Reading Time Taken Comments Blood Pressure 125/69 11/17/2022 3:25 PM EDT Pulse 52 11/17/2022 3:25 PM EDT Temperature - - Respiratory Rate - - Oxygen Saturation - - Inhaled Oxygen Concentration - - Weight 96.2 kg (212 lb) 11/17/2022 3:25 PM EDT Height 156.2 cm (5' 1.5) 11/17/2022 3:25 PM EDT Body Mass Index 39.41 11/17/2022 3:25 PM EDT documented in this encounter Patient Instructions * Patient Instructions* Abdoul Acuna MD - 11/17/2022 4:00 PM EDT Check blood pressure ( BP) every day in the morning around the same time before breakfast before taking any BP medications. Empty your bladder before your reading. Sit in a comfortable chair with your back supported for at least 5 minutes before your reading. Put both feet flat on the ground and keep your legs uncrossed. Rest your arm with the cuff on a table at chest height. Make sure the blood pressure cuff is snug but not too tight. The cuff should be against your bare skin, not over clothing. Do not talk while your blood pressure is being measured. Keep a log of your blood pressure medication and bring it with you next visit. documented in this encounter Progress Notes * Abdoul Acuna MD - 11/17/2022 4:00 PM EDT HYPERTENSION/ NEPHROLOGY PROGRESS NOTE PATIENT: Micaela Ambrocio : 1955 REASON FOR CONSULTATION: Consulted for renal insufficiency HPI: 67 y.o. 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 Alta Camacho in May 2018, did not have further follow-up, being referred by her primary care provider to evaluate and manage renal insufficiency. She was on lithium for almost 30 years for her bipolar disorder which she stopped 6 years ago and has not been on any mood stabilizers and has been doing all right. He has had HTN for approximately 10 years and currently on lisinopril 20 mg p.o. daily. She does not have diabetes Creatinine: 02/04/22- 1.67 12/22/2018-1.55 03/28/2020-1.89 09/25/2021-1.7 (EGFR 29.89) 09/25/2021-PTH 183 09/26/2021-vitamin D (25-hydroxy) 18.7 (low) Interval history: Had nausea vomiting diarrhea about 6 episodes each and resolved in about 12 hrs. She had family whowas sick. She is tolerating the Lisinopril that was increased. Now eating drinking all right. Checks blood pressure at home but does not remember what the reading was. Currently working for [employer]. Micaela Ambrocio does not take any NSAIDs, no kidney stones, no gout attack since last visit. No gross hematuria, frothy urine, no burning, nocturia 2-3 times. ROS: 4 point review of sytem was done, everything was negative except for what was mentioned above. No past medical history on file. Past Surgical History: Procedure Laterality Date ??? PRO COLONOSCOPY, REMV LESN, SNARE N/A 06/14/2014 COLONOSCOPY, POLYPECTOMY, REMOVAL LESION BY SNARE performed by Aide Han MD at [facility] ENDOSCOPY No family history on file. Social History Socioeconomic History ??? Marital status: Spouse name: Not on file ??? Number of children: Not on file ??? Years of education: Not on file ??? Highest education level: Not on file Occupational History ??? Not on file Tobacco Use ??? Smoking status: Never ??? Smokeless tobacco: Never Substance and Sexual Activity ??? Alcohol use: No ??? Drug use: No ??? Sexual activity: Not on file Other Topics Concern ??? Not on file Social History Narrative ??? Not on file Social Determinants of Health Financial Resource Strain: Not on file Food Insecurity: Not on file Transportation Needs: Not on file Physical Activity: Not on file Housing Stability: Not on file Outpatient medications: Current Outpatient Medications on File Prior to Visit Medication Sig Dispense Refill ??? atorvastatin (Lipitor) 10 mg tablet Take 10 mg by mouth every evening. ??? magnesium 250 mg tablet Take by mouth daily. ??? calcium-vitamin D 500 mg-5 mcg (200 unit) Tablet Take 1 tablet by mouth daily. ??? lisinopriL (Zestril) 20 mg Tablet Take 1 tablet by mouth 2 times daily. 180 tablet 5 ??? acetaminophen (TYLENOL) 500 mg Tablet Take 1,000 mg by mouth every 6 hours as needed for Pain. ??? multivitamin with minerals Tablet Take 1 tablet by mouth daily. ??? labetalol (NORMODYNE) 100 mg Tablet 100 MG-AM, 50 MG-PM 0 ??? valACYclovir (VALTREX) 500 mg Tablet 500 mg every other day. 0 ??? Garlic Capsule Take by mouth daily. No current facility-administered medications on file prior to visit. MEDICATIONS: No Known Allergies PHYSICAL EXAM: Last value Range last 24 hrs Temperature Temp: -- Heart Rate Heart Rate: 52 Heart Rate: [52] Blood Pressure BP: 125/69 BP: (125)/(69) Respiratory Rate Resp: -- SpO2 SpO2: -- Patient is awake alert did not seem to be in acute distress No jaundice oral mucosa moist Neck- supple trachea central Chest- bilateral air entry present clear to auscultation no wheeze no crepitation CVS-S1-S2 present, no murmur regurgitation gallops. Abdomen-nontender nondistended, bowel sounds present. Extremities-peripheral pulses present, no edema Neuro-patient is awake alert, moving all 4 limbs, motor examination is grossly normal. No asterixis. STUDIES: Labs: CBC: Recent Labs 11/17/22 1529 02/04/22 1411 WBC 7.5 8.1 HGB 11.8 12.0 PLATELET 200 211 Chemistry: Recent Labs 02/04/22 1411 NA 142 K 4.2 CL 108* CO2 24 BUN 26* CREATININE 1.67* GLUCOSE 90 Recent Labs 02/04/22 1411 CALCIUM 9.4 LFT's: No results for input(s): BILITOT, BILIDIR, ALBUMIN, ALKPHOS, ALT, AST in the last 7068 hours. Prot/Cre Ratio Date Value Ref Range Status 02/04/2022 0.7 ratio Final Lab Results Component Value Date TPROTEINPEP 6.6 02/13/2017 ALBELECT 4.53 02/13/2017 Lab Results Component Value Date MICROALBUR 408.6 02/04/2022 No results found for: HA1C Lab Results Component Value Date PTH 94 (H) 02/04/2022 CALCIUM 9.4 02/04/2022 PHOS 4.2 06/02/2018 25-OH Vit D Total (ng/mL) Date Value Status 02/04/2022 37 Final IMPRESSION/ RECOMMENDATIONS: 66 y.o. 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 Alta Camacho in May 2018, did not have further follow-up, being referred by her primary care provider to evaluate and manage renal insufficiency. SPEP, UPEP FLC neg. UPC 0.7 ACR 475 US (04/08/17)- R -8.5,L 9.0. No hyrdo. 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 - Increase in creatinine most likely due to Lisinopril that was increased during prior evaluation. -Off lithium for the past 6 years. # Electorlytes - Sodium and K are normal #Acid Base - not in acidosis . # BMM - Calcium normal - 25 OH vit d normal - PTH elevated, she has secondary hyper para thyroidism, but within range for her level of renal dysfunction. #Hemodynamics -BP -Encourage daily blood pressure monitoring in the morning. -Lisinopril 20 mg p.o. twice daily #Hemoglobin - At target for his level of CKD and she is not anemic. Plan/Recommendations: For osteoporosis safety data in CKD 4 is limited, but risedronate 35 mg every other week ( half theusual dose ) for not more than 3 years can be considered ( this is an expert opinion and not based on clinical trials). Close monitoring of calcium, phosphorus and creatinine every 3 months has to be considered while ontherapy. Avoid nephrotoxic medications Please renally dose all meds. Thanks for letting us participate in the care of this patient. CC-Shannon Fletcher APRN RTC 6 months. Abdoul Acuna MD 11/17/2022 Hypertension-Nephrology documented in this encounter Plan of Treatment Not on file documented as of this encounter Visit Diagnoses Diagnosis CKD (chronic kidney disease) stage 4, GFR 15-29 ml/min Chronic kidney disease, Stage IV (severe) Secondary hyperparathyroidism Secondary hyperparathyroidism (of renal origin) documented in this encounter Care Teams Audio Visual Manager Relationship Specialty Start Date End Date [place] [address] PCP - General Family Medicine 09/30/21 documented as of this encounter
--- OUTSIDE RECORDS SUMMARY | 2024-05-27 22:03 | XMS_ITS | Encounter Summary ---
[place] [address] Care Team Providers Care Litharge Supervisor Name Role Phone Shannon Fletcher APRN Primary Care Provider [phone] Encounter Details Date Type Department Care Team (Latest Contact Info) Description 11/17/2022 Travel Social History Tobacco Use Types Packs/Day Years [...] on filedocumented in this encounter Care Teams Litharge Supervisor Relationship Specialty Start Date End Date Shannon Fletcher [place] [address] [place] [address] PCP - General Family Medicine 09/30/21 documented as of this encounter
--- OUTSIDE RECORDS SUMMARY | 2024-05-27 22:03 | XMS_ITS | Encounter Summary ---
Author Organization [facility] [place] [address] Care Team Providers Care Packaging Assembler Name Role Phone Shannon Fletcher APRN Primary Care Provider [phone] Reason for Visit * Consultation (Routine) - Closed Specialty Diagnoses / Procedures Referred By Christiano nunn Referred To Contact Nephrology Diagnoses Chronic kidney disease, stage IV (severe) Shannon Fletcher APRN [address] [place] [address] [facility] Nephrology [address] [place] [phone] Referral ID Status Reason Start Date Expiration Date V isits Requested Visits Authorized [id number] Closed Consult, Test & Treat PCP Updated and/or Approved 09/30/2021 09/30/2022 6 6 Encounter Details Date Type Department Care Team (Latest Contact Info) Description 02/04/2022 3:00 PM EDT Office Visit [place] [address] Abdoul Acuna MD [facility] [place] [address] Stage 3b chronic kidney disease; Secondary hyperparathyroidism; Hypertension secondary to other renal disorders Social History Tobacco Use Types Packs/Day Years [...] Sign Reading Time Taken Comments Blood Pressure 139/73 02/04/2022 3:07 PM EDT Pulse 55 02/04/2022 3:07 PM EDT Temperature - - Respiratory Rate - - Oxygen Saturation - - Inhaled Oxygen Concentration - - Weight 96.6 kg (213 lb) 02/04/2022 3:07 PM EDT Height 156.2 cm (5' 1.5) 02/04/2022 3:07 PM EDT Body Mass Index 39.59 02/04/2022 3:07 PM EDT documented in this encounter Progress Notes * Abdoul Acuna MD - 02/04/2022 3:00 PM EDT Images from the original note were not included. HYPERTENSION/ NEPHROLOGY CONSULT NOTE PATIENT: Micaela Ambrocio : 1955 REASON FOR CONSULTATION: Consulted for renal insufficiency HPI: 66 y.o. female with PMHx significant for [...] 09/25/2021-PTH 183 09/26/2021-vitamin D (25-hydroxy) 18.7 (low) She has been doing all right overall. 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 Does not take any NSAID's, did not have any kidney stones recently, no gout attacks, does not take any [place] Citizen herbal supplements. Has been taking vitamin C 500 mg daily and also vitamin D. Recently diagnosed with osteoporosis and has been taking calcium vitamin D tablets. She has been doing intermittent fasting and lost 10 pounds in 1 month. She checks her blood pressure at home and runs in the 140s systolic she does not remember her diastolic blood pressure. Does not have any gross hematuria, still has 1-2 times nocturia and tries not to drink fluids late in the day. Review of system- A 10 point review of system including cardiovascular, neurological, pulmonary, gastrointestinal wasdone, everything was negative except for what was mentioned above. No past medical history on file. Past Surgical History: Procedure Laterality Date ??? PRO COLONOSCOPY, REMV LESN, SNARE N/A 06/14/2014 COLONOSCOPY, POLYPECTOMY, REMOVAL LESION BY SNARE performed by Aide Han MD at [facility] No family history on file. Social History Socioeconomic History ??? Marital status: Spouse name: Not on file ??? Number of children: Not on file ??? Years of education: Not on file ??? Highest education level: Not on file Occupational History ??? Not on file Tobacco Use ??? Smoking status: Never Smoker ??? Smokeless tobacco: Never Used Substance and Sexual Activity ??? Alcohol use: [...] to Visit Medication Sig Dispense Refill ??? magnesium 250 mg Tablet Take by mouth daily. ??? calcium-vitamin D 500 mg-5 mcg (200 unit) Tablet Take 1 tablet by mouth daily. ??? [DISCONTINUED] lisinopriL (Zestril) 20 mg Tablet Take 20 mg by mouth daily. ??? Garlic Capsule Take by mouth daily. ??? acetaminophen (TYLENOL) 500 mg Tablet Take 1,000 mg by mouth every 6 hours as needed for Pain. ??? [DISCONTINUED] ascorbic acid, vitamin C, (VITAMIN C) 500 mg Tablet, Chewable Take 2 tablets by mouth daily. ??? multivitamin with minerals Tablet Take 1 tablet by mouth daily. ??? labetalol (NORMODYNE) 100 mg Tablet 100 MG-AM, 50 MG-PM 0 ??? valACYclovir (VALTREX) 500 mg Tablet 500 mg daily. 0 ??? [DISCONTINUED] lisinopril (PRINIVIL;ZESTRIL) 10 mg Tablet 10 mg daily. 0 No current facility-administered medications on file prior to visit. MEDICATIONS: No Known Allergies PHYSICAL EXAM: Last value Range last 24 hrs Temperature Temp: -- Heart Rate Heart Rate: 55 Heart Rate: [55] Blood Pressure BP: 139/73 BP: (139)/(73) Respiratory Rate Resp: -- SpO2 SpO2: -- [...] No asterixis. STUDIES: Labs: CBC: Recent Labs 02/04/22 1411 WBC 8.1 HGB 12.0 PLATELET 211 Chemistry: Recent Labs 02/04/22 1411 NA 142 K 4.2 CL 108* CO2 24 BUN 26* CREATININE 1.67* GLUCOSE 90 Recent Labs 02/04/22 1411 CALCIUM 9.4 LFT's: No results for input(s): BILITOT, BILIDIR, ALBUMIN, ALKPHOS, ALT, AST in the last 7068 hours. Prot/Cre Ratio Date Value Ref Range Status 02/13/2017 0.2 ratio Final Lab Results Component Value Date TPROTEINPEP 6.6 02/13/2017 ALBELECT 4.53 02/13/2017 Lab Results Component Value Date MICROALBUR 37.2 06/02/2018 No results found for: HA1C Lab Results [...] UPEP FLC neg. 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 This is in the setting of hypertension.. -Off lithium for the past 6 years. -Her creatinine has been stable for the past 5 years - -We will increase lisinopril to 20 mg p.o. twice daily from 20 mg p.o. daily due to proteinuria and # Electorlytes - Sodium and K are normal #Acid Base - not in acidosis . # BMM - Calcium normal - 25 OH vit d normal - PTH elevated, she has secondary hyper para thyroidism, but within range for her level of renal dysfunction. #Hemodynamics -blood pressures running high in the 140s. -Encourage daily blood pressure monitoring in the morning. -Discussed about low-salt diet -We will increase lisinopril to 20 mg p.o. twice daily from 20 mg p.o. daily #Hemoglobin - At target for his level of CKD and she is not anemic. Plan/Recommendations: Avoid nephrotoxic medications Please renally dose all meds. Thanks for letting us participate in the care of this patient. A total of 60 minutes was spent for reviewing chart, [id number]-[id number] encounter, ordering labs/medication,documentation in the chart, and coordinating care. CC-Shannon Fletcher APRN RTC 6 months. Abdoul Acuna MD 02/04/2022 Hypertension-Nephrology documented in this encounter Plan of Treatment Not on file documented as of this encounter Procedures Procedure Name Priority Date/Time Associated Diagnosis Comments HC CREATININE - NON BLOOD Routine 02/04/2022 5:39 PM EDT Stage 3b chronic kidney disease Secondary hyperparathyroidism HC CREATININE - NON BLOOD Routine 02/04/2022 5:39 PM EDT Stage 3b chronic kidney disease Secondary hyperparathyroidism HC RANDOM URINE PEP Routine 02/04/2022 5:39 PM EDT Stage 3b chronic kidney disease Secondary hyperparathyroidism documented in this encounter Results * Vitamin D, 25-Hydroxy (11/17/2022 3:29 PM EDT) Vitamin D Total 25 OH 40 21 - 100 ng/mL [facility] Vit D Interp Sufficient [facility] Blood 11/17/2022 3:29 PM EDT 11/17/2022 3:39 PM EDT Narrative Resulting Agency Comment Spec In Lab Abdoul Acuna MD CHEMISTRY ORDERABLES [facility] [place] [address] * (ABNORMAL) PTH (11/17/2022 3:29 PM EDT) Parathyroid Hormone 80(H) 15 - 65 pg/mL [facility] Blood 11/17/2022 3:29 PM EDT 11/17/2022 3:39 PM EDT Narrative Resulting Agency Comment Spec In Lab Abdoul Acuna MD CHEMISTRY ORDERABLES Performing Organization Address City/[facility]/ZIP Co de Phone Number [facility] [place] [address] * Albumin Level (11/17/2022 3:29 PM EDT) Albumin 4.2 3.2 - 5.2 g/dL [facility] Blood 11/17/2022 3:29 PM EDT 11/17/2022 3:39 PM EDT Narrative Resulting Agency Comment Spec In Lab Abdoul Acuna MD CHEMISTRY ORDERABLES Performing Organization Address City/[facility]/ZIP Co de Phone Number [facility] [place] [address] * (ABNORMAL) Basic Metabolic Panel (non-fasting) (11/17/2022 3:29 PM EDT) Glucose 96 65 - 199 mg/dL [facility] Comment:Diabetes: >=200 mg/d L plus symptoms Blood Urea Nitrogen 33(H) 8 - 18 mg/dL [facility] Creatinine 2.10(H) 0.70 - 1.20 mg/dL [facility] Sodium 142 135 - 145 mmol/L [facility] Potassium 4.0 3.5 - 5.0 mmol/L [facility] Comment: Please note: ??Patients with WBC >100,000 may have falsely elevated Potassium levels. ??For accurate Potassium quantification in these patients send serum separator tube (gold top) for subsequent determinations. ??Contact the Clinical Chemistry Laboratory if there are any questions. Chloride 109(H) 98 - 107 mmol/L [facility] Carbon Dioxide 25 22 - 31 mmol/L [facility] Anion Gap 8 5 - 15 mmol/L [facility] Calcium 9.2 8.5 - 10.5 mg/dL [facility] Est Glomerular Filtration Rate 25(L) >=60 mL/min/1. 73 m?? [facility] Comment: This patient's estimated GFR was [...] and symptoms in addition to eGFR. Blood 11/17/2022 3:29 PM EDT 11/17/2022 3:39 PM EDT Narrative Resulting Agency Comment Spec In Lab Abdoul Acuna MD CHEMISTRY ORDERABLES [facility] [place] [address] * (ABNORMAL) Protein/Creatinine Ratio, urine (11/17/2022 3:27 PM EDT) Creatinine, Urine 70 mg/dL [facility] Protein, Urine 18(H) 0 - 12 mg/dL [facility] Protein / Creatinine Ratio, Urine 0.3 ratio [facility] Urine 11/17/2022 3:27 PM EDT 11/17/2022 3:40 PM EDT Narrative Resulting Agency Comment Spec In Lab Abdoul Acuna MD URINE ORDERABLES Performing Organization Address City/[facility] Co de Phone Number [facility] [place] [address] * (ABNORMAL) U Albumin/Cre Ratio (11/17/2022 3:27 PM EDT) Albumin / Creatinin Ratio, Urine 132(H) 0 - 29 mcg/mg Cr [facility] Comment: Reference Ranges: <30 mcg/mg: Normal [...] Supplements (2012) 2, 357? 362 Albumin, Urine 92.2 mg/L [facility] Creatinine, Urine 70 mg/dL [facility] Urine 11/17/2022 3:27 PM EDT 11/17/2022 3:40 PM EDT Narrative Resulting Agency Comment Spec In Lab Abdoul Acuna MD URINE ORDERABLES Performing Organization Address City/[facility] Co de Phone Number [facility] [place] [address] * (ABNORMAL) U Albumin/Cre Ratio (02/04/2022 5:39 PM EDT) Albumin / Creatinin Ratio, Urine 475(H) 0 - 29 mcg/mg Cr [facility] Comment: Reference Ranges: <30 [...] Supplements (2012) 2, 357? 362 Albumin, Urine 408.6 mg/L [facility] Creatinine, Urine 86 mg/dL [facility] Urine 02/04/2022 5:39 PM EDT 02/04/2022 5:39 PM EDT Narrative Resulting Agency Comment Spec In Lab Abdoul Acuna MD URINE ORDERABLES Performing Organization Address [facility] Co de Phone Number [facility] [place] [address] * (ABNORMAL) Protein/Creatinine Ratio, urine (02/04/2022 5:39 PM EDT) Creatinine, Urine 86 mg/dL [facility] Protein, Urine 60(H) 0 - 12 mg/dL [facility] Protein / Creatinine Ratio, Urine 0.7 ratio [facility] Urine 02/04/2022 5:39 PM EDT 02/04/2022 5:39 PM EDT Narrative Resulting Agency Comment Spec In Lab Abdoul Acuna MD URINE ORDERABLES Performing Organization Address City/[facility]/ZIP Co de Phone Number [facility] [place] [address] * (ABNORMAL) Protein Electrophoresis, urine, random (02/04/2022 5:39 PM EDT) Protein, Urine 60(H) 0 - 12 mg/dL [facility] U Albumin 80 % total [facility] Globulin, Urine 20 % total [facility] M1 Band, Urine None Detected [facility] UPEP Comments See Note [facility] Comment: There is no evidence of clonal free light chains in this patient's urine sample. Urine 02/04/2022 5:39 PM EDT 02/04/2022 5:39 PM EDT Narrative Resulting Agency Comment Spec In Lab Abdoul Acuna MD URINE ORDERABLES Performing Organization Address City/[facility]/ZIP Co de Phone Number [facility] [place] [address] * (ABNORMAL) Free Light Chains, Serum (02/04/2022 2:11 PM EDT) [place] Free Light Chain 3.43(H) 0.72 - 2.75 mg/dL [facility] Lambda Free Light Chain 2.52(H) 0.57 - 2.15 mg/dL [facility] [place]/Lambda FLC Ratio 1.3611 0.4000 - 2.5800 [facility] Blood 02/04/2022 2:11 PM EDT 02/04/2022 2:19 PM EDT Narrative Resulting Agency Comment Spec In Lab Abdoul Acuna MD CHEMISTRY ORDERABLES Performing Organization Address [facility]/ZIP Co de Phone Number [facility] [place] [address] * Vitamin D, 25-Hydroxy (02/04/2022 2:11 PM EDT) Vitamin D Total 25 OH 37 21 - 100 ng/mL [facility] Vit D Interp Sufficient [facility] Blood 02/04/2022 2:11 PM EDT 02/04/2022 2:19 PM EDT Narrative Resulting Agency Comment Spec In Lab Abdoul Acuna MD CHEMISTRY ORDERABLES Performing Organization Address City/[facility]/ZIP Co de Phone Number [facility] [place] [address] * (ABNORMAL) PTH (02/04/2022 2:11 PM EDT) Parathyroid Hormone 94(H) 15 - 65 pg/mL [facility] Blood 02/04/2022 2:11 PM EDT 02/04/2022 2:19 PM EDT Narrative Resulting Agency Comment Spec In Lab Abdoul Acuna MD CHEMISTRY ORDERABLES [facility] [place] [address] * (ABNORMAL) Basic Metabolic Panel (non-fasting) (02/04/2022 2:11 PM EDT) Glucose 90 65 - 199 mg/dL [facility] Comment:Diabetes: >=200 mg/d L plus symptoms Blood Urea Nitrogen 26(H) 8 - 18 mg/dL [facility] Creatinine 1.67(H) 0.70 - 1.20 mg/dL [facility] Sodium 142 135 - 145 mmol/L [facility] Potassium 4.2 3.5 - 5.0 mmol/L [facility] Comment: Please note: ??Patients with WBC >100,000 may have falsely elevated Potassium levels. ??For accurate Potassium quantification in these patients send serum separator tube (gold top) for subsequent determinations. ??Contact the Clinical Chemistry Laboratory if there are any questions. Chloride 108(H) 98 - 107 mmol/L [facility] Carbon Dioxide 24 22 - 31 mmol/L [facility] Anion Gap 10 5 - 15 mmol/L [facility] Calcium 9.4 8.5 - 10.5 mg/dL [facility] Est Glomerular Filtration Rate 33(L) >=60 mL/min/1. 73 m?? [facility] Comment: This patient's estimated GFR [...] In Lab Abdoul Acuna MD [place]MI[place] [address] documented in this encounter Visit Diagnoses Diagnosis Stage 3b chronic kidney disease Secondary hyperparathyroidism Secondary hyperparathyroidism (of renal origin) Hypertension secondary to other renal disorders documented in this encounter Care Teams Packaging Assembler Relationship Specialty Start Date End Date Shannon Fletcher, MANAGER [employer] [place] [address] PCP - General Family Medicine 09/30/21 documented as of this encounter
--- OUTSIDE RECORDS SUMMARY | 2024-05-27 22:03 | XMS_ITS | Encounter Summary ---
[place] [address] Care Team Providers Care Mathematics Instructor Name Role Phone Shannon Fletcher APRN Primary Care Provider [phone] Encounter Details Date Type Department Care Team (Latest Contact Info) Description 04/05/2024 Travel Social History Tobacco Use Types Packs/Day [...] on filedocumented in this encounter Care Teams Mathematics Instructor Relationship Specialty Start Date End Date Shannon Fletcher [place] [address] [place] [address] PCP - General Family Medicine 09/30/21 documented as of this encounter
--- OUTSIDE RECORDS SUMMARY | 2024-05-27 22:03 | XMS_ITS | Encounter Summary ---
Author Organization [facility] [place] [address] Care Team Providers Care Pr Intern Name Role Phone Shannon Fletcher APRN Primary Care Provider [phone] Encounter Details Date Type Department Care Team (Late st Contact Info) Description 10/09/2021 Telephone Neph[place] [phone] Carmina Foster Social History Tobacco Use Types [...] * Telephone Encounter - Carmina Foster - 10/09/2021 3:19 PM EST PCP office called finding out when pt should be seen. Referral was reviewed by Crutch Maker advisedpatient can be seen 3 months from 10/09/21, conveyed message to PCP office (Mahi, medical secretary receptionist) documented in this encounter Plan of Treatment Not on file documented as of this encounter Visit Diagnoses Not on filedocumented in this encounter Care Teams Pr Intern Relationship Specialty Start Date End Date Shannon Fletcher [place] [address] [place] [address] PCP - General Family Medicine 09/30/21 documented as of this encounter
--- OUTSIDE RECORDS SUMMARY | 2024-05-27 22:03 | XMS_ITS | Encounter Summary ---
Author Organization [facility] [place] [address] Care Team Providers Care Underwriter Name Role Phone Chance, Shannon Ramachandran APRN Primary Care Provider [phone] Encounter Details Date Type Department Care Team (Latest Contact Info) Description 06/15/2023 10:00 AM EST Office Visit [place] [address] Bridget Sanders MD [facility] [place] [address] CKD (chronic kidney disease) stage 4, GFR [...] Sign Reading Time Taken Comments Blood Pressure 169/84 06/15/2023 9:57 AM EST Pulse 53 06/15/2023 9:57 AM EST Temperature - - Respiratory Rate 20 06/15/2023 9:41 AM EST Oxygen Saturation 98% 06/15/2023 9:41 AM EST Inhaled Oxygen Concentration - - Weight 97.1 kg (214 lb) 06/15/2023 9:41 AM EST Height - - Body Mass Index 39.78 11/17/2022 3:25 PM EDT documented in this encounter Patient Instructions * Patient Instructions* Bridget Sanders MD - 06/15/2023 10:00 AM EST Check blood pressure ( BP) every day [...] and bring it with you next visit. * Attachments The following attachments cannot be sent through Care Everywhere. * Dapagliflozin Oral Tablet (DAPAGLIFLOZIN - ORAL) (Surinamese) * Empagliflozin Oral Tablet (EMPAGLIFLOZIN - ORAL) (Surinamese) documented in this encounter Progress Notes * Bridget Sanders MD - 06/15/2023 10:00 AM EST HYPERTENSION/ NEPHROLOGY PROGRESS NOTE PATIENT: Micaela Ambrocio [...] 02/04/22- 1.67 12/22/2018-1.55 03/28/2020-1.89 09/25/2021-1.7 (EGFR 29.89) Creatinine (mg/dL) Date Value 06/15/2023 2.00 (H) 11/17/2022 2.10 (H) 02/04/2022 1.67 (H) 06/02/2018 1.65 (H) 04/08/2017 1.77 (H) 02/13/2017 1.76 (H) 09/25/2021-PTH 183 09/26/2021-vitamin D (25-hydroxy) 18.7 (low) Interval history: She is tolerating the Lisinopril that was increased. She had urinary tract infection and was treated in the urgent care in late January 2023. She checks her blood pressure at home and usually runs in the 1 25-1 30 range systolic. Her heart rate is usually low and has been running in the low 50s, of note she has been on labetalol. Checks blood pressure at home but does not remember what the reading was. Currently working for [employer]. Micaela Ambrocio does not take any NSAIDs, no kidney stones, no gout attack since last visit. ROS: 4 point review of sytem was done, everything was negative except for what was mentioned above. No past medical history on file. Past Surgical History: Procedure Laterality Date PRO COLONOSCOPY, REMV LESN, SNARE N/A 06/14/2014 COLONOSCOPY, POLYPECTOMY, REMOVAL LESION BY SNARE performed by Aide Han MD at [facility] ENDOSCOPY No family history on file. Social History Socioeconomic History Marital status: Spouse name: Not on file Number of children: Not on file Years of education: Not on file Highest education level: Not on file Occupational History Not on file Tobacco Use Smoking status: Never Smokeless tobacco: Never Substance and Sexual Activity Alcohol use: No Drug use: No Sexual activity: Not on file Other Topics Concern Not on file Social History Narrative Not on file Social Determinants of Health Financial Resource Strain: Not on file Food Insecurity: Not on file Transportation Needs: Not on file Physical Activity: Not on file Intimate Partner Violence: Not on file Housing Stability: Not on file Outpatient medications: Current Outpatient Medications on File Prior to Visit Medication Sig Dispense Refill atorvastatin (Lipitor) 10 mg tablet Take 10 mg by mouth every evening. magnesium 250 mg tablet Take 500 mg by mouth daily. lisinopriL (Zestril) 20 mg Tablet Take 1 tablet by mouth 2 times daily. 180 tablet 5 acetaminophen (TYLENOL) 500 mg Tablet Take 1,000 mg by mouth every 6 hours as needed for Pain. labetalol (NORMODYNE) 100 mg Tablet 100 MG-AM, 50 MG-PM 0 valACYclovir (VALTREX) 500 mg Tablet 500 mg every other day. 0 calcium-vitamin D 500 mg-5 mcg (200 unit) Tablet Take 1 tablet by mouth daily. Garlic Capsule Take by mouth daily. multivitamin with minerals Tablet Take 1 tablet by mouth daily. No current facility-administered medications on file prior to visit. MEDICATIONS: No Known Allergies PHYSICAL EXAM: Last value Range last 24 hrs Temperature Temp: -- Heart Rate Heart Rate: 53 Heart Rate: [53-55] Blood Pressure BP: 169/84 BP: (169-186)/(84-93) Respiratory Rate Resp: 20 Resp: [20] SpO2 SpO2: 98 % SpO2: [98 %] Patient is awake alert did not seem to be in acute distress No jaundice oral mucosa moist Neck- supple trachea central Chest- bilateral air entry present clear to auscultation no wheeze no crepitation CVS-S1-S2 present, systolic murmur noted in the aortic region. Abdomen-nontender nondistended, bowel sounds present. Extremities-peripheral pulses present, no edema Neuro-patient is awake alert, moving all 4 limbs, motor examination is grossly normal. No asterixis. STUDIES: Labs: CBC: Recent Labs 06/15/23 0914 11/17/22 1529 WBC 7.1 7.5 HGB 11.8 11.8 PLATELET 227 200 Chemistry: Recent Labs 06/15/23 0914 11/17/22 1529 NA 144 142 K 4.5 4.0 CL 106 109* CO2 28 25 BUN 25* 33* CREATININE 2.00* 2.10* GLUCOSE 95 96 Recent Labs 06/15/23 0914 11/17/22 1529 CALCIUM 9.7 9.2 LFT's: Recent Labs 06/15/23 0914 11/17/22 1529 ALBUMIN 4.4 4.2 Prot/Cre Ratio Date Value Ref Range Status 11/17/2022 0.3 ratio Final Lab Results Component Value Date TPROTEINPEP 6.6 02/13/2017 ALBELECT 4.53 02/13/2017 Lab Results Component Value Date MICROALBUR 92.2 11/17/2022 No results found for: HA1C Lab Results Component Value Date PTH 117 (H) 06/15/2023 CALCIUM 9.7 06/15/2023 PHOS 4.2 06/02/2018 25-OH Vit D Total (ng/mL) Date Value Status 11/17/2022 40 Final IMPRESSION/ RECOMMENDATIONS: 66 y.o. female with [...] and functional increase in creatinine due to Lisinopril. -Does not have any overt proteinuria, but has moderate albuminuria. -Off lithium for the past 6 years. -CV protection she-she is on a statin. # Electorlytes - Sodium and K are normal #Acid Base - not in acidosis . # BMM - Calcium normal - 25 OH vit d normal - PTH elevated, she has secondary hyper parathyroidism, but within range for her level of renal dysfunction. -She is on vitamin D supplementation. #Hemodynamics -BP is slightly elevated. -Encouraged daily blood pressure monitoring in the morning. -Lisinopril 20 mg p.o. twice daily. -She has mild bradycardia, will stop her labetalol and started on low-dose carvedilol for better control of blood pressure. -She was advised to call us if her heart rate is less than 50 on daily blood pressure monitoring. #Hemoglobin - she is not anemic. Plan/Recommendations: For osteoporosis safety data in CKD 4 is limited, but risedronate 35 mg every other week ( half theusual dose ) for not more than 3 years can be considered ( this is an expert opinion and not based on clinical trials). Close monitoring of calcium, phosphorus and creatinine every 3 months has to be considered while ontherapy. Her blood pressure is not well controlled, target blood pressure being around 120 systolic, will start her on low-dose carvedilol and stop her labetalol. She was advised to call us if her heart rate goes below 50. Avoid nephrotoxic medications Please renally dose all meds. Thanks for letting us participate in the care of this patient. A total of 30 minutes was spent for reviewing chart, fipm-ax-pors encounter, ordering labs/medication, documentation in the chart, and coordinating care. CC-Shannon Fletcher APRN RTC 6 months. Bridget Sanders MD 06/15/2023 Hypertension-Nephrology documented in this encounter Miscellaneous Notes * Addendum Note - Bridget Sanders MD - 06/15/2023 10:00 AM ESTAddended by: BRIDGET SANDERS on: 06/15/2023 12:54 PM Modules accepted: Orders documented in this encounter Plan of Treatment Not on file documented as of this encounter Results * Protein/Creatinine Ratio, urine (04/05/2024 10:23 AM EDT) Protein, Urine 10 0 - 12 mg/dL 04/05/2024 6:25 PM EDT [facility] Creatinine, Urine 53 mg/dL 04/05/2024 6:25 PM EDT [facility] Protein / Creatinine Ratio, Urine 0.2 ratio 04/05/2024 6:25 PM EDT [facility] Urine Non Blood Collection / Unknown 04/05/2024 10:23 AM EDT 04/05/2024 10:23 AM EDT Bridget Sanders MD URINE ORDERABLES [facility] [place] [address] * (ABNORMAL) U Albumin/Cre Ratio (04/05/2024 10:23 AM EDT) Albumin, Urine 41.8 mg/L 04/05/2024 6:25 PM EDT [facility] Creatinine, Urine 53 mg/dL 024 6:25 PM EDT [facility] Albumin / Creatinine Ratio, Urine 79(H) 0 - 29 mcg/mg Cr 04/05/2024 6:25 PM EDT [facility] Comment: Reference Ranges: ?? <30 [...] Diabetes-2016; KDIGO: Kidney International Supplements (2012) 2 ??[phone] Urine Non Blood Collection / Unknown 04/05/2024 10:23 AM EDT 04/05/2024 10:23 AM EDT Bridget Sanders MD URINE ORDERABLES Performing Organization Address City/[facility]/ZIP Co de Phone Number [facility] [place] [address] * Vitamin D, 25-Hydroxy (04/05/2024 10:23 AM EDT) Vitamin D Total 25 OH 40 21 - 100 ng/ml 04/05/2024 5:42 PM EDT [facility] Vitamin D Total 25 OH Interp Sufficient 04/05/2024 5:42 PM EDT [facility] Blood VENOUS BLOOD SPECIMEN / Unknown Venipuncture / Unknown 04/05/2024 10:23 AM EDT 04/05/2024 10:23 AM EDT Bridget Sanders MD CHEMISTRY ORDERABLES Performing Organization Address City/[facility]/ZIP Co de Phone Number [facility] [place] [address] * (ABNORMAL) PTH (04/05/2024 10:23 AM EDT) [facility] Parathyroid Hormone 155(H) 15 - 65 pg/mL 04/05/2024 11:08 AM EDT [facility] Blood VENOUS BLOOD SPECIMEN / Unknown Venipuncture / Unknown 04/05/2024 10:23 AM EDT 04/05/2024 10:23 AM EDT Bridget Sanders MD CHEMISTRY ORDERABLES [facility] [place] [address] * (ABNORMAL) CBC (with Diff) (04/05/2024 10:23 AM EDT) [facility] White Blood Cell 9.26 4.00 - 9.50 x10(3)/mc L 04/05/2024 10:[facility] Red Blood Cell 4.12 4.00 - 5.21 x10(6)/mc L 04/05/2024 10:48 AM EDT [facility] Hemoglobin 11.9 11.7 - 15.5 g/dL 04/05/2024 10:48 AM [facility] Hematocrit 38.8 35.7 - 45.8 % 04/05/2024 10:48 AM [facility] Mean Cell Volume 94.2 82.6 - 94.4 fL 04/05/2024 10:48 AM EDT [facility] Mean Cell Hemoglobin 28.9 27.1 - 32.0 pg 04/05/2024 10:48 [facility] Mean Cell Hemoglobin Concentration 30.7(L) 31.7 - 35.0 g/dL 04/05/2024 10:48 AM [facility] Platelet 226 145 - 357 x10(3)/mc L 04/05/2024 10:48 AM [facility] Mean Platelet Volume 9.9 7.6 - 12.9 fL 04/05/2024 10:48 [facility] RDW Standard Deviation 48.0(H) 37.0 - 46.0 fL 04/05/2024 10:48 AM [facility] RDW coefficient of variation 13.8 11.5 - 14.1 % 04/05/2024 10:48 AM [facility] NRBC% auto 0.0 % 04/05/2024 10:48 AM [facility] NRBC Absolute 0.00 0.00 - 0.00 x10(3)/mc L 04/05/2024 10:48 AM [facility] Neutrophil % 55.9 % 04/05/2024 10:48 AM [facility] Neutrophil Absolute (ANC) - Automated 5.18 1.70 - 6.10 x10(3)/mc L 04/05/2024 10:48 AM [facility] Lymph % 32.4 % 04/05/2024 10:48 AM [facility] Lymph Absolute 3.00 0.90 - 3.20 x10(3)/mc L 04/05/2024 10:48 AM [facility] Monocyte % 6.0 % 04/05/2024 10:48 AM [facility] Monocyte Absolute 0.56 0.30 - 0.90 x10(3)/mc L 04/05/2024 10:48 AM [facility] Eos % 3.6 % 04/05/2024 10:48 AM [facility] Eos Absolute 0.33 0.00 - 0.40 x10(3)/mc L 04/05/2024 10:48 AM [facility] Basophil % 1.2 % 04/05/2024 10:48 AM [facility] Baso Absolute 0.11(H) 0.00 - 0.10 x10(3)/mc L 04/05/2024 10:48 AM [facility] Immature Gran % 0.9 % 10:48 AM [facility] Immature Gran Absolute 0.08(H) 0.00 - 0.04 x10(3)/mc L 04/05/2024 10:48 AM EDT [facility] Blood VENOUS BLOOD SPECIMEN / Unknown Venipuncture / Unknown 04/05/2024 10:23 AM EDT 04/05/2024 10:23 AM EDT Bridget Sanders MD HEMATOLOGY ORDERABLE S [facility] [place] [address] * Albumin Level (04/05/2024 10:23 AM EDT) Pathologist [facility] Albumin 4.2 3.2 - 5.2 g/dL 04/05/2024 11:10 AM EDT [facility] Blood VENOUS BLOOD SPECIMEN / Unknown Venipuncture / Unknown 04/05/2024 10:23 AM EDT 04/05/2024 10:23 AM EDT Bridget Sandesr MD CHEMISTRY ORDERABLES [facility] [place] [address] * (ABNORMAL) Basic Metabolic Panel (non-fasting) (04/05/2024 10:23 AM EDT) Glucose 97 65 - 199 mg/dL 04/05/2024 11:10 AM EDT [facility] Comment:Glucose Concentratio n >=200 mg/dL plus symptoms is consistent with Diabetes Mellitus. Blood Urea Nitrogen 42(H) 8 - 18 mg/dL 04/05/2024 11:10 AM EDT [facility] Creatinine 2.42(H) 0.70 - 1.20 mg/dL 04/05/2024 11:10 AM EDT [facility] Sodium 142 135 - 145 mMol/L 04/05/2024 11:10 AM EDT [facility] Potassium 4.3 3.5 - 5.0 mMol/L 04/05/2024 11:10 AM EDT [facility] Chloride 103 98 - 107 mMol/L 04/05/2024 11:10 AM EDT [facility] Carbon Dioxide 27 22 - 31 mMol/L 04/05/2024 11:10 AM EDT [facility] Anion Gap 12 5 - 15 mMol/L 04/05/2024 11:10 AM EDT [facility] Calcium 9.5 8.5 - 10.5 mg/dL 04/05/2024 11:10 AM EDT [facility] Est Glomerular Filtration Rate - Female 21 mL/min/1. 73 m?? 04/05/2024 11:10 AM EDT [facility] Comment: This patient's estimated GFR [...] Foundation Fasting Status No 04/05/2024 11:10 AM EDT [facility] Blood VENOUS BLOOD SPECIMEN / Unknown Venipuncture / Unknown 04/05/2024 10:23 AM EDT 04/05/2024 10:23 AM EDT Bridget Sanders MD CHEMISTRY ORDERABLES [facility] [place] [address] * (ABNORMAL) Protein/Creatinine Ratio, urine (06/15/2023 9:53 AM EST) Creatinine, Urine 49 mg/dL [facility] Protein, Urine 43(H) 0 - 12 mg/dL [facility] Protein / Creatinine Ratio, Urine 0.9 ratio [facility] Urine 06/15/2023 9:53 AM EST 06/15/2023 9:58 AM EST Narrative Resulting Agency Comment Spec In Lab Bridget Sanders MD URINE ORDERABLES Performing Organization Address City/[facility]/ZIP Co de Phone Number [facility] [place] [address] * (ABNORMAL) U Albumin/Cre Ratio (06/15/2023 9:53 AM EST) Albumin / Creatinin Ratio, Urine 585(H) 0 - 29 mcg/mg Cr [facility] Comment: Reference Ranges: <30 mcg/mg: Normal [...] Supplements (2012) 2, 357? 362 Albumin, Urine 286.7 mg/L [facility] Creatinine, Urine 49 mg/dL [facility] Urine 06/15/2023 9:53 AM EST 06/15/2023 9:58 AM EST Narrative Resulting Agency Comment Spec In Lab Bridget Sanders MD URINE ORDERABLES Performing Organization Address City/[facility]/ZIP Co de Phone Number [facility] [place] [address] * Vitamin D, 25-Hydroxy (06/15/2023 9:14 AM EST) Vitamin D Total 25 OH 43 21 - 100 ng/mL [facility] Vit D Interp Sufficient [facility] Blood 06/15/2023 9:14 AM EST 06/15/2023 9:19 AM EST Narrative Resulting Agency Comment Spec In Lab Bridget Sanders MD CHEMISTRY ORDERABLES Performing Organization Address [facility] Co de Phone Number [facility] [place] [address] * (ABNORMAL) PTH (06/15/2023 9:14 AM EST) Parathyroid Hormone 117(H) 15 - 65 pg/mL [facility] Blood 06/15/2023 9:14 AM EST 06/15/2023 9:19 AM EST Narrative Resulting Agency Comment Spec In Lab Bridget Sanders MD CHEMISTRY ORDERABLES Performing Organization Address [facility] de Phone Number [facility] [place] [address] * Albumin Level (06/15/2023 9:14 AM EST) Albumin 4.4 3.2 - 5.2 g/dL [facility] Blood 06/15/2023 9:14 AM EST 06/15/2023 9:19 AM EST Narrative Resulting Agency Comment Spec In Lab Bridget Sanders MD CHEMISTRY ORDERABLES Performing Organization Address [facility] de Phone Number [facility] [place] [address] * (ABNORMAL) Basic Metabolic Panel (non-fasting) (06/15/2023 9:14 AM EST) Glucose 95 65 - 199 mg/dL [facility] Comment:Diabetes: >=200 mg/d L plus symptoms Blood Urea Nitrogen 25(H) 8 - 18 mg/dL [facility] Creatinine 2.00(H) 0.70 - 1.20 mg/dL [facility] Sodium 144 135 - 145 mmol/L [facility] Potassium 4.5 3.5 - 5.0 mmol/L [facility] Comment: Please note: ??Patients with WBC >100,000 may have falsely elevated Potassium levels. ??For accurate Potassium quantification in these patients send serum separator tube (gold top) for subsequent determinations. ??Contact the Clinical Chemistry Laboratory if there are any questions. Chloride 106 98 - 107 mmol/L [facility] Carbon Dioxide 28 22 - 31 mmol/L [facility] Anion Gap 10 5 - 15 mmol/L [facility] Calcium 9.7 8.5 - 10.5 mg/dL [facility] Est Glomerular Filtration Rate 27(L) >=60 mL/min/1. 73 m?? [facility] Comment: This patient's estimated GFR was [...] and symptoms in addition to eGFR. Blood 06/15/2023 9:14 AM EST 06/15/2023 9:19 AM EST Narrative Resulting Agency Comment Spec In Lab Bridget Sanders MD CHEMISTRY ORDERABLES [facility] [place] [address] documented in this encounter Visit Diagnoses Diagnosis CKD (chronic kidney disease) stage 4, GFR 15-29 ml/min Chronic kidney disease, Stage IV (severe) Secondary hyperparathyroidism Secondary hyperparathyroidism (of renal origin) documented in this encounter Care Teams Underwriter Relationship Specialty Start Date End Date Shannon Fletcher, [employer] [place] [address] [place] [address] PCP - General Family Medicine 09/30/21 documented as of this encounter
--- OUTSIDE RECORDS SUMMARY | 2024-05-27 22:03 | XMS_ITS | Encounter Summary ---
Author Organization [facility] [place] [address] Care Team Providers Care Cab Supervisor Name Role Phone Rina Hernandez APRN Primary Care Provider [phone] Encounter Details Date Type Department Care Team (Late st Contact Info) Description 08/18/2019 Telephone [place] [address] Joanna Camarena Social History Tobacco Use Types Packs/Day Years [...] encounter Miscellaneous Notes * Telephone Encounter - Joanna Camarena - 08/18/2019 9:17 AM EST Caller and relationship to patient (if other than patient): Marlyn from PCP/RMD office Patient's Best time to reach caller: Erik Message or Reason for Call: Calling to check status, please contact patient to schedule procedure Appt Needed and Reason: Yes [place] Provider: TBD documented in this encounter Plan of Treatment Not on file documented as of this encounter Visit Diagnoses Not on filedocumented in this encounter Care Teams Cab Supervisor Relationship Specialty Start Date End Date Rina Hernandez APRN [facility] [address] [place], [place] [id number] PCP - General Family Medicine 01/02/17 09/29/21 documented as of this encounter
--- OUTSIDE RECORDS SUMMARY | 2024-05-27 22:03 | XMS_ITS | Encounter Summary ---
[place] [address] Care Team Providers Care Client Care Manager Name Role Phone Chance, Shannon Ramachandran APRN Primary Care Provider [phone] Encounter Details Date Type Department Care Team (Latest Contact Info) Description 06/15/2023 9:15 AM EST Laboratory Appointment Lab [address] [place] [id number] CKD (chronic kidney disease) stage 4, GFR [...] Procedure Name Priority Date/Time Associated Diagnosis Comments PROTEIN/CREATININ E RATIO, URINE Routine 06/15/2023 9:53 AM EST CKD (chronic kidney disease) stage 4, GFR 15-29 ml/min Secondary hyperparathyroidism U ALBUMIN/CRE RATIO Routine 06/15/2023 9:53 AM EST CKD (chronic kidney disease) stage 4, GFR 15-29 ml/min Secondary hyperparathyroidism PTH Routine 06/15/2023 9:14 AM EST CKD (chronic kidney disease) stage 4, GFR 15-29 ml/min Secondary hyperparathyroidism HEMOGRAM Routine 06/15/2023 9:14 AM EST CKD (chronic kidney disease) stage 4, GFR 15-29 ml/min Secondary hyperparathyroidism DIFFERENTIAL, AUTOMATED Routine 06/15/2023 9:14 AM EST CKD (chronic kidney disease) stage 4, GFR 15-29 ml/min Secondary hyperparathyroidism VITAMIN D, 25-HYDROXY Routine 06/15/2023 9:14 AM EST CKD (chronic kidney disease) stage 4, GFR 15-29 ml/min Secondary hyperparathyroidism CBC (WITH DIFF) Routine 06/15/2023 9:14 AM EST CKD (chronic kidney disease) stage 4, GFR 15-29 ml/min Secondary hyperparathyroidism ALBUMIN LEVEL Routine 06/15/2023 9:14 AM EST CKD (chronic kidney disease) stage 4, GFR 15-29 ml/min Secondary hyperparathyroidism BASIC METABOLIC PANEL Routine 06/15/2023 9:14 AM EST CKD (chronic kidney disease) stage 4, GFR 15-29 ml/min Secondary hyperparathyroidism documented in this encounter Results * (ABNORMAL) U Albumin/Cre Ratio (06/15/2023 9:53 AM EST) Albumin / Creatinin Ratio, Urine 585(H) 0 - 29 mcg/mg Cr [facility] Comment: Reference Ranges: <30 [...] 2, 357? 362 Albumin, Urine 286.7 mg/L [facility] Creatinine, Urine 49 mg/dL [facility] Urine 06/15/2023 9:53 AM EST 06/15/2023 9:58 AM EST Narrative Resulting Agency Comment Spec In Lab Abdoul Acuna MD URINE ORDERABLES [facility] [place] [address] * (ABNORMAL) Protein/Creatinine Ratio, urine (06/15/2023 9:53 AM EST) Creatinine, Urine 49 mg/dL [facility] Protein, Urine 43(H) 0 - 12 mg/dL [facility] Protein / Creatinine Ratio, Urine 0.9 ratio [facility] Urine 06/15/2023 9:53 AM EST 06/15/2023 9:58 AM EST Narrative Resulting Agency Comment Spec In Lab Abdoul Acuna MD URINE ORDERABLES Performing Organization Address City/[facility] [[email or web address]] Co de Phone Number [facility] [place] [address] * Differential, Automated (06/15/2023 9:14 AM EST) Neutrophil % 65.8 % [facility] Neutrophil Absolute 4.69 1.70 - 6.10 x10(3)/[facility] Lymph % 21.3 % [facility] Lymphocytes Abs 1.5 0.9 - 3.2 x10(3)/[facility] Monocyte % 5.3 % [facility] Monocyte Abs 0.4 0.3 - 0.9 x10(3)/[facility] Eos % 6.2 % [facility] Eosinophils Abs 0.4 0.0 - 0.4 x10(3)/[facility] Basophil % 0.8 % [facility] Baso Absolute 0.1 0.0 - 0.1 x10(3)/[facility] Immature Gran % 0.60 % [facility] Comment: Immature granulocytes(IG's)percentage and absolute count will include metamyelocytes, myelocytes, and promyelocytes. Blood smears from CBCs yielding IG's will be scanned manually for concordance. If this scan disagrees with the automated IG or if promyelocytes are noted, a manual differential will be performed. Immature Gran Absolute 0.04 0.00 - 0.04 x10(3)/mcL [facility] Blood 06/15/2023 9:14 AM EST 06/15/2023 9:19 AM EST Narrative Resulting Agency Comment Spec In Lab Abdoul Acuna MD HEMATOLOGY ORDERABLE S Performing Organization Address City/[facility]/ZIP Co de Phone Number [facility] [place] [address] * (ABNORMAL) Hemogram (06/15/2023 9:14 AM EST) White Blood Cell 7.1 4.0 - 9.5 x10(3)/mc L [facility] Red Blood Cell 4.05 4.00 - 5.21 x10(6)/mc L [facility] Hemoglobin 11.8 11.7 - 15.5 g/dL [facility] Hematocrit 36.9 35.7 - 45.8 % [facility] Mean Cell Volume 91.1 82.6 - 94.4 fL [facility] Mean Cell Hemoglobin 29.1 27.1 - 32.0 pg [facility] Mean Cell Hemoglobin Concentration 32.0 31.7 - 35.0 g/dL [facility] Platelet 227 145 - 357 x10(3)/mc L [facility] RDW Standard Deviation 47.4(H) 37.0 - 46.0 fL [facility] RDW coefficient of variation 14.2(H) 11.5 - 14.1 % [facility] Mean Platelet Volume 10.2 7.6 - 12.9 fL [facility] NRBC% auto 0.0 % [facility] NRBC Absolute 0.000 0.000 - 0.000 x10(3)/mc L [facility] Blood 06/15/2023 9:14 AM EST 06/15/2023 9:19 AM EST Narrative Resulting Agency Comment Spec In Lab Abdoul Acuna MD HEMATOLOGY ORDERABLE S [facility] [place] [address] * (ABNORMAL) Basic Metabolic Panel (non-fasting) (06/15/2023 9:14 AM EST) Glucose 95 65 - 199 mg/dL [facility] Comment:Diabetes: >=200 mg/d L plus symptoms Blood Urea Nitrogen 25(H) 8 - 18 mg/dL [facility] Creatinine 2.00(H) 0.70 - 1.20 mg/dL [facility] Sodium 144 135 - 145 mmol/L [facility] Potassium 4.5 3.5 - 5.0 mmol/L [facility] Comment: Please note: ??Patients with WBC >100,000 may have falsely elevated Potassium levels. ??For accurate Potassium quantification in these patients send serum separator tube (gold top) for subsequent determinations. ??Contact the Clinical Chemistry Laboratory if there are any questions. Chloride 106 98 - 107 mmol/L [facility] Carbon Dioxide 28 22 - 31 mmol/L [facility] Anion Gap 10 5 - 15 mmol/L [facility] Calcium 9.7 8.5 - 10.5 mg/dL [facility] Est Glomerular Filtration Rate 27(L) >=60 mL/min/1. 73 m?? [facility] Comment: This patient's estimated [...] In Lab Abdoul Acuna MD CHEMISTRY ORDERABLES [facility] [place] [address] * Albumin Level (06/15/2023 9:14 AM EST) Albumin 4.4 3.2 - 5.2 g/dL [facility] Blood 06/15/2023 9:14 AM EST 06/15/2023 9:19 AM EST Narrative Resulting Agency Comment Spec In Lab Abdoul Acuna MD CHEMISTRY ORDERABLES Performing Organization Address [facility] [[email or web address]] Co de Phone Number [facility] [place] [address] * (ABNORMAL) PTH (06/15/2023 9:14 AM EST) Parathyroid Hormone 117(H) 15 - 65 pg/mL [facility] Blood 06/15/2023 9:14 AM EST 06/15/2023 9:19 AM EST Narrative Resulting Agency Comment Spec In Lab Abdoul Acuna MD CHEMISTRY ORDERABLES Performing Organization Address [facility] [[email or web address]] Co de Phone Number [facility] [place] [address] * Vitamin D, 25-Hydroxy (06/15/2023 9:14 AM EST) Vitamin D Total 25 OH 43 21 - 100 ng/mL [facility] Vit D Interp Sufficient [facility] Blood 06/15/2023 9:14 AM EST 06/15/2023 9:19 AM EST Narrative Resulting Agency Comment Spec In Lab Abdoul Acuna MD CHEMISTRY ORDERABLES Performing Organization Address City/[facility] [[email or web address]] Co de Phone Number [facility] [place] [address] documented in this encounter Visit Diagnoses Diagnosis CKD (chronic kidney disease) stage 4, GFR 15-29 ml/min Chronic kidney disease, Stage IV (severe) Secondary hyperparathyroidism Secondary hyperparathyroidism (of renal origin) documented in this encounter Care Teams Client Care Manager Relationship Specialty Start Date End Date Shannon Fletcher, SHEET SEWER [place] [facility] [place] [address] PCP - General Family Medicine 2/28/22 documented as of this encounter
--- OUTSIDE RECORDS SUMMARY | 2024-05-27 22:03 | XMS_ITS | Encounter Summary ---
[place] [address] Care Team Providers Care Public Health Assistant Name Role Phone Chance, Shannon Ramachandran APRN Primary Care Provider [phone] Encounter Details Date Type Department Care Team (Latest Contact Info) Description 11/17/2022 3:00 PM EDT Laboratory Appointment Lab [address] [place] [phone] Stage 3b chronic kidney disease; Secondary hyperparathyroidism ; Hypertension secondary to other renal disorders Social [...] Name Priority Date/Time Associated Diagnosis Comments HC PARATHYROID HORMONE(PTH INTACT Routine 11/17/2022 3:29 PM EDT Stage 3b chronic kidney disease Secondary hyperparathyroidism Hypertension secondary to other renal disorders HEMOGRAM Routine 11/17/2022 3:29 PM EDT Stage 3b chronic kidney disease Secondary hyperparathyroidism Hypertension secondary to other renal disorders DIFFERENTIAL, AUTOMATED Routine 11/17/2022 3:29 PM EDT Stage 3b chronic kidney disease Secondary hyperparathyroidism Hypertension secondary to other renal disorders HC VITAMIN D TOTAL-25 HYDROXY Routine 11/17/2022 3:29 PM EDT Stage 3b chronic kidney disease Secondary hyperparathyroidism Hypertension secondary to other renal disorders HC CBC,PLT & AUTO DIFF Routine 11/17/2022 3:29 PM EDT Stage 3b chronic kidney disease Secondary hyperparathyroidism Hypertension secondary to other renal disorders ALBUMIN LEVEL Routine 11/17/2022 3:29 PM EDT Stage 3b chronic kidney disease Secondary hyperparathyroidism Hypertension secondary to other renal disorders BASIC METABOLIC PANEL Routine 11/17/2022 3:29 PM EDT Stage 3b chronic kidney disease Secondary hyperparathyroidism Hypertension secondary to other renal disorders HC CREATININE - NON BLOOD Routine 11/17/2022 3:27 PM EDT Stage 3b chronic kidney disease Secondary hyperparathyroidism Hypertension secondary to other renal disorders U ALBUMIN/CRE RATIO Routine 11/17/2022 3 :27 PM EDT Stage 3b chronic kidney disease Secondary hyperparathyroidism Hypertension secondary to other renal disorders documented in this encounter Results * Differential, Automated (11/17/2022 3:29 PM EDT) Neutrophil % 67.7 % [facility] Neutrophil Absolute 5.10 1.70 - 6.10 x10(3)/[facility] Lymph % 19.3 % [facility] Lymphocytes Abs 1.4 0.9 - 3.2 x10(3)/[facility] Monocyte % 7.3 % [facility] Monocyte Abs 0.6 0.3 - 0.9 x10(3)/[facility] Eos % 4.6 % [facility] Eosinophils Abs 0.4 0.0 - 0.4 x10(3)/[facility] Basophil % 0.7 % [facility] Baso Absolute 0.0 0.0 - 0.1 x10(3)/[facility] Immature Gran % 0.40 % [facility] Comment: Immature granulocytes(IG's)percentage and absolute count will include metamyelocytes, myelocytes, and promyelocytes. Blood smears from CBCs yielding IG's will be scanned manually for concordance. If this scan disagrees with the automated IG or if promyelocytes are noted, a manual differential will be performed. Immature Gran Absolute 0.03 0.00 - 0.04 x10(3)/mcL [facility] Blood 11/17/2022 3:29 PM EDT 11/17/2022 3:39 PM EDT Narrative Resulting Agency Comment Spec In Lab Abdoul Acuna MD HEMATOLOGY ORDERABLE S [facility] [place] [address] * (ABNORMAL) Hemogram (11/17/2022 3:29 PM EDT) White Blood Cell 7.5 4.0 - 9.5 x10(3)/mc L [facility] Red Blood Cell 4.20 4.00 - 5.21 x10(6)/mc L [facility] Hemoglobin 11.8 11.7 - 15.5 g/dL [facility] Hematocrit 36.9 35.7 - 45.8 % [facility] Mean Cell Volume 87.9 82.6 - 94.4 fL [facility] Mean Cell Hemoglobin 28.1 27.1 - 32.0 pg [facility] Mean Cell Hemoglobin Concentration 32.0 31.7 - 35.0 g/dL [facility] Platelet 200 145 - 357 x10(3)/mc L [facility] RDW Standard Deviation 46.4(H) 37.0 - 46.0 fL [facility] RDW coefficient of variation 14.4(H) 11.5 - 14.1 % [facility] Mean Platelet Volume 9.7 7.6 - 12.9 fL [facility] NRBC% auto 0.0 % [facility] NRBC Absolute 0.000 0.000 - 0.000 x10(3)/mc L [facility] Blood 11/17/2022 3:29 PM EDT 11/17/2022 3:39 PM EDT Narrative Resulting Agency Comment Spec In Lab Abdoul Acuna MD HEMATOLOGY ORDERABLE S Performing Organization Address City/[facility]/ZIP Co de Phone Number [facility] [place] [address] * (ABNORMAL) Basic Metabolic Panel (non-fasting) (11/17/2022 3:29 PM EDT) Glucose 96 65 - 199 mg/dL [facility] Comment:Diabetes: >=200 mg/d L plus symptoms Blood Urea Nitrogen 33(H) 8 - 18 mg/dL [facility] Creatinine 2.10(H) 0.70 - 1.20 mg/dL [facility] Sodium 142 135 - 145 mmol/L [facility] Potassium 4.0 3.5 - 5.0 mmol/L [facility] Comment: Please note: ??Patients with WBC >100,000 may have falsely elevated Potassium levels. ??For accurate Potassium quantification in these patients send serum separator tube (gold top) for subsequent determinations. ??Contact the Clinical Chemistry Laboratory if there are any questions. Chloride 109(H) 98 - 107 mmol/L [facility] Carbon Dioxide 25 22 - 31 mmol/L [facility] Anion Gap 8 5 - 15 mmol/L [facility] Calcium 9.2 8.5 - 10.5 mg/dL [facility] Est Glomerular Filtration Rate 25(L) >=60 mL/min/1. 73 m?? [facility] Comment: This patient's estimated [...] In Lab Abdoul Acuna MD CHEMISTRY ORDERABLES [facility] [place] [address] * Albumin Level (11/17/2022 3:29 PM EDT) Albumin 4.2 3.2 - 5.2 g/dL [facility] Blood 11/17/2022 3:29 PM EDT 11/17/2022 3:39 PM EDT Narrative Resulting Agency Comment Spec In Lab Abdoul Acuna MD CHEMISTRY ORDERABLES Performing Organization Address City/[facility]/ZIP Co de Phone Number [facility] [place] [address] * (ABNORMAL) PTH (11/17/2022 3:29 PM EDT) Parathyroid Hormone 80(H) 15 - 65 pg/mL [facility] Blood 11/17/2022 3:29 PM EDT 11/17/2022 3:39 PM EDT Narrative Resulting Agency Comment Spec In Lab Abdoul Acuna MD CHEMISTRY ORDERABLES Performing Organization Address [facility] Co de Phone Number [facility] [place] [address] * Vitamin D, 25-Hydroxy (11/17/2022 3:29 PM EDT) Pathologist [facility] Vitamin D Total 25 OH 40 21 - 100 ng/mL [facility] Vit D Interp Sufficient [facility] Blood 11/17/2022 3:29 PM EDT 11/17/2022 3:39 PM EDT Narrative Resulting Agency Comment Spec In Lab Abdoul Acuna MD CHEMISTRY ORDERABLES Performing Organization Address City/[facility] Co de Phone Number [facility] [place] [address] * (ABNORMAL) U Albumin/Cre Ratio (11/17/2022 3:27 PM EDT) Albumin / Creatinin Ratio, Urine 132(H) 0 - 29 mcg/mg Cr [facility] Comment: Reference Ranges: <30 mcg/mg: [...] 2, 357? 362 Albumin, Urine 92.2 mg/L [facility] Creatinine, Urine 70 mg/dL [facility] Urine 11/17/2022 3:27 PM EDT 11/17/2022 3:40 PM EDT Narrative Resulting Agency Comment Spec In Lab Abdoul Acuna MD URINE ORDERABLES Performing Organization Address City/[facility]/ZIP Co de Phone Number [facility] [place] [address] * (ABNORMAL) Protein/Creatinine Ratio, urine (11/17/2022 3:27 PM EDT) Creatinine, Urine 70 mg/dL [facility] Protein, Urine 18(H) 0 - 12 mg/dL [facility] Protein / Creatinine Ratio, Urine 0.3 ratio [facility] Urine 11/17/2022 3:27 PM EDT 11/17/2022 3:40 PM EDT Narrative Resulting Agency Comment Spec In Lab Abdoul Acuna MD URINE ORDERABLES Performing Organization Address City/[facility]/ZIP Co de Phone Number [facility] [place] [address] documented in this encounter Visit Diagnoses Diagnosis Stage 3b chronic kidney disease Secondary hyperparathyroidism Secondary hyperparathyroidism (of renal origin) Hypertension secondary to other renal disorders documented in this encounter Care Teams Public Health Assistant Relationship Specialty Start Date End Date Shannon [place] [address] PCP - General Family Medicine 09/30/21 documented as of this encounter
--- OUTSIDE RECORDS SUMMARY | 2024-05-27 22:03 | XMS_ITS | Encounter Summary ---
[place] [address] Care Team Providers Care Marketing Administrator Name Role Phone Shannon Fletcher APRN Primary Care Provider [phone] Encounter Details Date Type Department Care Team (Late st Contact Info) Description 07/13/2023 Orders Only [place] [address] Tashia Welsh RN Hypertension, unspecified type Social History Tobacco Use Types Packs/Day Years [...] as of this encounter Visit Diagnoses Diagnosis Hypertension, unspecified type documented in this encounter Care Teams Marketing Administrator Relationship Specialty Start Date End Date Shannon Fletcher APR[place] [address] [place] [address] PCP - General Family Medicine 09/30/21 documented as of this encounter
--- OUTSIDE RECORDS SUMMARY | 2024-05-27 22:03 | XMS_ITS | Encounter Summary ---
Author Organization [facility] [place] [address] Care Team Providers Care Nascar Driver Name Role Phone Shannon Fletcher CASING MATERIAL WEIGHER Primary Care Provider [phone] Encounter Details Date Type Department Care Team (Late st Contact Info) Description 09/30/2021 [place] [address] Shannon Fletcher, CASING MATERIAL WEIGHER [address] [facility] [place] [address] Social History Tobacco Use Types Packs/Day Years [...] on filedocumented in this encounter Care Teams Nascar Driver Relationship Specialty Start Date End Date Shannon Fletcher, CASING MATERIAL WEIGHER [address] [place] [address] PCP - General Family Medicine 09/30/21 documented as of this encounter
--- OUTSIDE RECORDS SUMMARY | 2024-05-27 22:03 | XMS_ITS | Clinical Summary ---
Author Organization [facility] Address [facility] [place] [address] Care Team Providers Care Crystal Finisher Name Role Phone Shannon Fletcher APRN Primary Care Provider [phone] Allergies No known active allergies Medications Medication Sig Dispensed Refills Start Date End Date Status valACYclovir (VALTREX) 500 mg TabletIndications:CKD (chronic kidney disease) stage 4, GFR 15-29 ml/min Take 500 mg by mouth daily. 0 01/28/2017 Active multivitamin with minerals TabletIndications:Chr onic kidney disease, unspecified CKD stage,CKD (chronic kidney disease) stage 4, GFR 15-29 ml/min Take 1 tablet by mouth daily. Active acetaminophen (TYLENOL) 500 mg Tablet Take 1,000 mg by mouth every 6 hours as needed for Pain. Active magnesium 250 mg tablet Take 500 mg by mouth daily. Active calcium-vitamin D 500 mg-5 mcg (200 unit) Tablet Take 1 tablet by mouth daily. Active atorvastatin (Lipitor) 10 mg tablet Take 10 mg by mouth every evening. 11/11/2022 Active chlorthalidone (Hygroten) 25 mg tablet Take 1 tablet by mouth daily. 90 tablet 3 06/30/2023 Active losartan (Cozaar) 100 mg tablet Take 1 tablet by mouth daily. 90 tablet 3 09/03/2023 Active carvediloL (Coreg) 3.125 mg tablet Take 1 tablet by mouth 2 times daily (with meals). 180 tablet 3 01/19/2024 Active LACTOBACILLUS RHAMNOSUS GG ORAL Take 2 gummies by mouth daily. Active dapagliflozin propanediol (Farxiga) 10 mg tablet Take 1 tablet by mouth daily. 90 tablet 3 04/05/2024 Active Active Problems No known active problems Encounters Date Type Department Care Team Description 04/05/2024 11:30 AM EDT Office Visit Neph[place] [address] Abdoul Acuna MD CKD (chronic kidney disease) stage 4, GFR 15-29 ml/min; Hypertension, unspecified type; Hyperparathyroidism 04/05/2024 10:00 AM EDT Laboratory Appointment Lab [address] [place] [address] CKD (chronic kidney disease) stage 4, GFR 15-29 ml/min; Secondary hyperparathyroidism 04/05/2024 Travel from Last 3 Months Social History Tobacco Use Types Packs/Day Years Used Date Smoking Tobacco: Never Smokeless Tobacco: Never Alcohol Use Standard Drinks/Week Comments No 0 (1 standard drink = 0.6 oz pur e alcohol) Sex and Gender Information Value Date Recorded Sex Assigned at Not on file Gender Identity Not on file Sexual Orientation Not on file Last Filed Vital Signs Vital Sign Reading Time Taken Comments Blood Pressure 128/64 04/05/2024 11:13 AM EDT Pulse 58 04/05/2024 11:13 AM EDT Temperature - - Respiratory Rate 20 06/15/2023 9:41 AM EST Oxygen Saturation 98% 04/05/2024 11:13 AM EDT Inhaled Oxygen Concentration - - Weight 101.6 kg (224 lb) 04/05/2024 11:13 AM EDT Height 156.2 cm (5' 1.5) 11/17/2022 3:25 PM EDT Body Mass Index 41.64 11/17/2022 3:25 PM EDT Plan of Treatment Health Maintenance Due Date Last Done Comments CT Colonography 1955 FIT DNA 1955 FIT 1955 Sigmoidoscopy 1955 Hepatitis C Screening 1971 Tetanus/Diphtheria/Pertussis Vaccines (1 - Tdap) 1972 Breast Cancer Share Decision Needed 1993 Breast Cancer screening 1993 Zoster vaccine (1 of 2) 2003 Advance Directive 2008 Bone Density Scan 2018 Pneumoccocal Vaccine: 65+ (1 of 1 - PCV) 2018 Colonoscopy 06/14/2019 06/14/2014, 06/14/2014 Colorectal Cancer Screening 06/14/2019 Covid-19 Vaccine (1 - 2022-2 4 season) 2024 Influenza (Flu) vaccine (1 o f 1 - Influenza standard series) 04/03/2024 Sigmoidoscopy (10 year) with FIT yearly 06/14/2024 06/14/2014, 06/14/2014 Diabetes Screening (HgbA1C o r Glucose) 04/05/2027 04/05/2024, 06/15/2023, 11/17/2022, Additional history exists Procedures Procedure Name Priority Date/Time Associated Diagnosis Comments PROTEIN/CREATININE RATIO, URINE Routine 04/05/2024 10:23 AM EDT CKD (chronic kidney disease) stage 4, GFR 15-29 ml/min Secondary hyperparathyroidism U ALBUMIN/CRE RATIO Routine 04/05/2024 10:23 AM EDT CKD (chronic kidney disease) stage 4, GFR 15-29 ml/min Secondary hyperparathyroidism VITAMIN D, 25-HYDROXY Routine 04/05/2024 10:23 AM EDT CKD (chronic kidney disease) stage 4, GFR 15-29 ml/min Secondary hyperparathyroidism PTH Routine 04/05/2024 10:23 AM EDT CKD [...] stage 4, GFR 15-29 ml/min Secondary hyperparathyroidism COLONOSCOPY Routine 06/14/2014 9:26 AM EST from Last 3 Months or Most Recently Relevant to Health Maintenance Results * (ABNORMAL) PTH (04/05/2024 10:23 AM EDT) Parathyroid Hormone 155(H) 15 - 65 pg/mL 04/05/2024 11:08 AM EDT [facility] Blood VENOUS BLOOD SPECIMEN / Unknown Venipuncture / Unknown 04/05/2024 10:23 AM EDT 04/05/2024 10:23 AM EDT Abdoul Acuna MD CHEMISTRY ORDERABLES [facility] [place] [address] * Protein/Creatinine Ratio, urine (04/05/2024 10:23 AM EDT) Protein, Urine 10 0 - 12 mg/dL 04/05/2024 6:25 PM EDT [facility] Creatinine, Urine 53 mg/dL 04/05/2024 6:25 PM EDT [facility] Protein / Creatinine Ratio, Urine 0.2 ratio 04/05/2024 6:25 PM EDT [facility] Urine Non Blood Collection / Unknown 04/05/2024 10:23 AM EDT 04/05/2024 10:23 AM EDT Abdoul Acuna MD URINE ORDERABLES [facility] [place] [address] * (ABNORMAL) U Albumin/Cre Ratio (04/05/2024 10:23 AM EDT) Albumin, Urine 41.8 mg/L 04/05/2024 6:25 PM EDT [facility] Creatinine, Urine 53 mg/dL 024 6:25 PM EDT [facility] Albumin / Creatinine Ratio, Urine 79(H) 0 - 29 mcg/mg Cr 04/05/2024 6:25 PM EDT [facility] Comment: Reference Ranges: ?? <30 [...] Acuna MD URINE ORDERABLES Performing Organization Address City/[facility]/ZIP Co de Phone Number [facility] [place] [address] * Vitamin D, 25-Hydroxy (04/05/2024 10:23 AM EDT) Vitamin D Total 25 OH 40 21 - 100 ng/ml 04/05/2024 5:42 PM EDT [facility] Vitamin D Total 25 OH Interp Sufficient 04/05/2024 5:42 PM EDT [facility] Blood VENOUS BLOOD SPECIMEN / Unknown Venipuncture / Unknown 04/05/2024 10:23 AM EDT 04/05/2024 10:23 AM EDT Abdoul Acuna MD CHEMISTRY ORDERABLES Performing Organization Address City/[facility]/ZIP Co de Phone Number [facility] [place] [address] * (ABNORMAL) CBC (with Diff) (04/05/2024 10:23 AM EDT) White Blood Cell 9.26 4.00 - 9.50 x10(3)/mc L 04/05/2024 10:48 AM [facility] Red Blood Cell 4.12 4.00 - 5.21 x10(6)/mc L 04/05/2024 10:48 AM [facility] Hemoglobin 11.9 11.7 - 15.5 g/dL 04/05/2024 10:48 AM [facility] Hematocrit 38.8 35.7 - 45.8 % 04/05/2024 10:48 AM [facility] Mean Cell Volume 94.2 82.6 - 94.4 fL 04/05/2024 10:48 AM [facility] Mean Cell Hemoglobin 28.9 27.1 - 32.0 pg 04/05/2024 10:48 AM [facility] Mean Cell Hemoglobin Concentration 30.7(L) 31.7 - 35.0 g/dL 04/05/2024 10:48 AM [facility] Platelet 226 145 - 357 x10(3)/mc L 04/05/2024 10:48 AM [facility] Mean Platelet Volume 9.9 7.6 - 12.9 fL 04/05/2024 10:48 AM [facility] RDW Standard Deviation 48.0(H) 37.0 - 46.0 fL 04/05/2024 10:48 AM [facility] RDW coefficient of variation 13.8 11.5 - 14.1 % 04/05/2024 10:48 AM [facility] NRBC% auto 0.0 % 04/05/2024 10:48 AM [facility] NRBC Absolute 0.00 0.00 - 0.00 x10(3)/mc L 04/05/2024 10:48 AM [facility] Neutrophil % 55.9 % 04/05/2024 10:48 AM [facility] Neutrophil Absolute (ANC) - Automated 5.18 1.70 - 6.10 x10(3)/mc L 04/05/2024 10:48 AM EDT [facility] Lymph % 32.4 % 04/05/2024 10:48 AM EDT [facility] Lymph Absolute 3.00 0.90 - 3.20 x10(3)/mc L 04/05/2024 10:48 AM EDT [facility] Monocyte % 6.0 % 04/05/2024 10:48 AM EDT [facility] Monocyte Absolute 0.56 0.30 - 0.90 x10(3)/mc L 04/05/2024 10:48 AM EDT [facility] Eos % 3.6 % 04/05/2024 10:48 AM EDT [facility] Eos Absolute 0.33 0.00 - 0.40 x10(3)/mc L 04/05/2024 10:48 AM EDT [facility] Basophil % 1.2 % 04/05/2024 10:48 AM EDT [facility] Baso Absolute 0.11(H) 0.00 - 0.10 x10(3)/mc L 04/05/2024 10:48 AM EDT [facility] Immature Gran % 0.9 % 10:48 AM EDT [facility] Immature Gran Absolute 0.08(H) 0.00 - 0.04 x10(3)/mc L 04/05/2024 10:48 AM EDT [facility] Blood VENOUS BLOOD SPECIMEN / Unknown Venipuncture / Unknown 04/05/2024 10:23 AM EDT 04/05/2024 10:23 AM EDT Abdoul Acuna MD HEMATOLOGY ORDERABLE S [facility] [place] [address] * Albumin Level (04/05/2024 10:23 AM EDT) Albumin 4.2 3.2 - 5.2 g/dL 04/05/2024 11:10 AM T [facility] Blood VENOUS BLOOD SPECIMEN / Unknown Venipuncture / Unknown 04/05/2024 10:23 AM EDT 04/05/2024 10:23 AM EDT Abdoul Acuna MD CHEMISTRY ORDERABLES [facility] [place] [address] * (ABNORMAL) Basic Metabolic Panel (non-fasting) (04/05/2024 10:23 AM EDT) Glucose 97 65 - 199 mg/dL 04/05/2024 11:10 AM T [facility] Comment:Glucose Concentratio n >=200 mg/dL plus symptoms is consistent with Diabetes Mellitus. Blood Urea Nitrogen 42(H) 8 - 18 mg/dL 04/05/2024 11:10 AM [facility] Creatinine 2.42(H) 0.70 - 1.20 mg/dL 04/05/2024 11:10 AM [facility] Sodium 142 135 - 145 mMol/L 04/05/2024 11:10 AM [facility] Potassium 4.3 3.5 - 5.0 mMol/L 04/05/2024 11:10 AM [facility] Chloride 103 98 - 107 mMol/L 04/05/2024 11:10 AM [facility] Carbon Dioxide 27 22 - 31 mMol/L 04/05/2024 11:10 AM [facility] Anion Gap 12 5 - 15 mMol/L 04/05/2024 11:10 AM [facility] Calcium 9.5 8.5 - 10.5 mg/dL 04/05/2024 11:10 AM [facility] Est Glomerular Filtration Rate - Female 21 mL/min/1. 73 m?? 04/05/2024 11:10 AM EDT [facility] Comment: This patient's estimated [...] Fasting Status No 04/05/2024 11:10 AM EDT [facility] Blood VENOUS BLOOD SPECIMEN / Unknown Venipuncture / Unknown 04/05/2024 10:23 AM EDT 04/05/2024 10:23 AM EDT Abdoul Acuna MD CHEMISTRY ORDERABLES Performing Organization Address City/State/[facility] Co de Phone Number [facility] [place] [address] * COLONOSCOPY (06/14/2014 9:26 AM EST) COLONOSCOPY [facility] Endoscopy Patient Name: Micaela Ambrocio ? Procedure Date: 06/14/2014 9:26 AM ? Date of : 1955 ? Age: 58 ? Order #: [id number] ? Procedure: ? Colonoscopy Indications: ? Heme positive stool Providers: ? Aide Han MD, Edy Concepcion RN, ? Kate Samson MD: ?Carlee Rubio, KRYSTLE Medicines: ? Midazolam 4 mg IV, Fentanyl 125 ? micrograms IV Complications: ? No immediate complications. Procedure: ? Pre-Anesthesia Assessment: ? - Prior to the procedure, a History ? and Physical was performed, and ? patient medications, allergies and ? sensitivities were reviewed. The ? patient's tolerance of previous ? anesthesia was reviewed. ? - The risks and benefits of the ? procedure and the sedation options ? and risks were discussed with the ? patient. All questions were answered ? and informed consent was obtained. ? The procedure, indications, benefits, ? risks and alternatives were explained ? to the patient. Specifically ? discussed were potential ? complications including, but not ? limited to, bleeding, perforation, ? infection, missing a cancer, and ? adverse medication reactions. The ? patient was placed in the left ? lateral decubitus position, and a ? digital rectal exam was performed. ? The Colonoscope was inserted in the ? anus and under direct visualization, ? advanced to the terminal ileum. ? Careful inspection was made as the ? colonoscope was withdrawn. The ? colonoscopy was performed with ease. ? The patient tolerated the procedure ? well. The quality of the bowel ? preparation was excellent. ? Findings: ? A sessile polyp was found in the cecum. The polyp was ? 5 mm in size. The polyp was removed with a hot snare. ? Resection and retrieval were complete. ? A pedunculated polyp was found in the descending ? colon at 70 cm proximal to the anus. The polyp was 20 ? mm in size. The polyp was removed with a hot snare. ? Resection and retrieval were complete. The ? polypectomy defect was closed with 2 clips. ? A sessile polyp was found in the sigmoid colon at 40 ? cm proximal to the anus. The polyp was 3 mm in size ? and looked inflammatory. The polyp was removed with a ? cold biopsy forceps. Resection and retrieval were ? complete. ? Localized mild inflammation characterized by erosions ? and erythema was found at the ileocecal valve. ? Biopsies were taken with a cold forceps for histology. ? Internal hemorrhoids were seen. ? Impression: ?- One 5 mm polyp in the cecum. ? Resected and retrieved. ? - One 20 mm polyp in the descending ? colon at 70 cm proximal to the anus. ? Resected and retrieved. ? - One 3 mm polyp in the sigmoid colon ? at 40 cm proximal to the anus. ? Resected and retrieved. Recommendation: ?- Await pathology results. ? - Isolated patch of inflammation on ? the IC valve is likely not clinically ? significant. ? Aide Han MD 06/14/2014 10:41 AM This report has been signed electronically. Number of Addenda: 0 Note Initiated On: 06/14/2014 9:26 AM PROVATION 06/14/2014 9:26 AM EST Carlee Leroy Ramiro METER REPAIRER HELPER GENERAL SURGICAL O RDERABLES PROVATION from Last 3 Months or Most Recently Relevant to Health Maintenance Care Teams Crystal Finisher Relationship Specialty Start Date End Date Shannon Fletcher APRN [address] [place] [place] [address] PCP - General Family Medicine 09/30/21
--- OUTSIDE RECORDS SUMMARY | 2024-05-27 22:03 | XMS_ITS | Encounter Summary ---
Author Organization [facility] [place] [address] Care Team Providers Care Analytical Laboratory Technician Name Role Phone Shannon Fletcher APRN Primary Care Provider [phone] Encounter Details Date Type Department Care Team (Late st Contact Info) Description 02/12/2024 Telephone Neph[place] [phone] Carmina Foster Social History Tobacco Use Types [...] * Telephone Encounter - Carmina Foster - 02/12/2024 4:03 PM EDT LM for patient to call and schedule a follow up appointment. Will send out reminder letter documented in this encounter Plan of Treatment Not on file documented as of this encounter Visit Diagnoses Not on filedocumented in this encounter Care Teams Analytical Laboratory Technician Relationship Specialty Start Date End Date Shannon Fletcher APRN [place] [address] [place] [address] PCP - General Family Medicine 09/30/21 documented as of this encounter
--- OUTSIDE RECORDS SUMMARY | 2024-05-27 22:03 | XMS_ITS | Encounter Summary ---
[place] [address] Care Team Providers Care Shop Hand Name Role Phone Rina Hernandez APRN Primary Care Provider [phone] Encounter Details Date Type Department Care Team (Latest Contact Info) Description 06/02/2018 8:30 AM EDT Laboratory Appointment Lab [address] [place] [phone] CKD (chronic kidney disease) stage 4, GFR [...] Priority Date/Time Associated Diagnosis Comments PTH Routine 06/02/2018 8:44 AM EDT CKD (chronic kidney disease) stage 4, GFR 15-29 ml/min HEMOGRAM Routine 06/02/2018 8:44 AM EDT CKD (chronic kidney disease) stage 4, GFR 15-29 ml/min DIFFERENTIAL, AUTOMATED Routine 06/02/2018 8:44 AM EDT CKD (chronic kidney disease) stage 4, GFR 15-29 ml/min CBC (WITH DIFF) Routine 06/02/2018 8:44 AM EDT CKD (chronic kidney disease) stage 4, GFR 15-29 ml/min URIC ACID Routine 06/02/2018 8:44 AM EDT CKD (chronic kidney disease) stage 4, GFR 15-29 ml/min PHOSPHORUS Routine 06/02/2018 8:44 AM EDT CKD (chronic kidney disease) stage 4, GFR 15-29 ml/min ALBUMIN LEVEL Routine 06/02/2018 8:44 AM EDT CKD (chronic kidney disease) stage 4, GFR 15-29 ml/min BASIC METABOLIC PANEL Routine 06/02/2018 8:44 AM EDT CKD (chronic kidney disease) stage 4, GFR 15-29 ml/min documented in this encounter Results * Differential, Automated (06/02/2018 8:44 AM EDT) Neutrophil % 70.7 % [facility] Neutrophil Absolute 5.32 1.70 - 6.10 x10(3)/[facility] Lymph % 19.4 % [facility] Lymphocytes Abs 1.5 0.9 - 3.2 x10(3)/[facility] Monocyte % 5.4 % [facility] Monocyte Abs 0.4 0.3 - 0.9 x10(3)/[facility] Eos % 3.3 % [facility] Eosinophils Abs 0.2 0.0 - 0.4 x10(3)/[facility] Basophil % 0.7 % [facility] Baso Absolute 0.0 0.0 - 0.1 x10(3)/[facility] Immature Gran % 0.50 % [facility] Comment: Immature granulocytes(IG's)percentage and absolute count will include metamyelocytes, myelocytes, and promyelocytes. Blood smears from CBCs yielding IG's will be scanned manually for concordance. If this scan disagrees with the automated IG or if promyelocytes are noted, a manual differential will be performed. Immature Gran Absolute 0.04 0.00 - 0.04 x10(3)/[facility] Blood specimen (specimen) 06/02/2018 8:44 AM EDT 06/02/2018 8:49 AM EDT Narrative Resulting Agency Comment Spec In Lab Alta Camacho MD HEMATOLOGY ORDERABLE S [facility] [place] [address] * Hemogram (06/02/2018 8:44 AM EDT) White Blood Cell 7.5 4.0 - 9.5 x10(3)/[facility] Red Blood Cell 4.38 4.00 - 5.21 x10(6)/[facility] Hemoglobin 12.2 11.7 - 15.5 gm/dL [facility] Hematocrit 38.0 35.7 - 45.8 % [facility] Mean Cell Volume 86.8 82.6 - 94.4 fL [facility] Mean Cell Hemoglobin 27.9 27.1 - 32.0 pg [facility] Mean Cell Hemoglobin Concentration 32.1 31.7 - 35.0 gm/dL [facility] Platelet 199 145 - 357 x10(3)/[facility] RDW Standard Deviation 44.8 37.0 - 46.0 [facility] RDW coefficient of variation 14.1 11.5 - 14.1 % [facility] Mean Platelet Volume 10.7 7.6 - 12.9 [facility] NRBC% auto 0.0 % [facility] NRBC Absolute 0.000 0.000 - 0.000 x10(3)/[facility] Blood specimen (specimen) 06/02/2018 8:44 AM EDT 06/02/2018 8:49 AM EDT Narrative Resulting Agency Comment Spec In Lab Alta Camacho MD HEMATOLOGY ORDERABLE S Performing Organization Address City/[facility]/ZIP Co de Phone Number [facility] [place] [address] * (ABNORMAL) Uric acid (06/02/2018 8:44 AM EDT) Uric Acid 6.6(H) 2.5 - 6.5 mg/dL [facility] Blood specimen (specimen) 06/02/2018 8:44 AM EDT 06/02/2018 8:49 AM EDT Narrative Resulting Agency Comment Spec In Lab Alta Camacho MD CHEMISTRY ORDERABLES Performing Organization Address [facility] Co de Phone Number [facility] [place] [address] * Albumin Level (06/02/2018 8:44 AM EDT) Albumin 4.3 3.2 - 5.2 gm/dL [facility] Blood specimen (specimen) 06/02/2018 8:44 AM EDT 06/02/2018 8:49 AM EDT Narrative Resulting Agency Comment Spec In Lab Alta Camacho MD CHEMISTRY ORDERABLES Performing Organization Address [facility]/ZIP Co de Phone Number [facility] [place] [address] * (ABNORMAL) PTH (06/02/2018 8:44 AM EDT) Parathyroid Hormone 77(H) 15 - 65 pg/mL [facility] Blood specimen (specimen) 06/02/2018 8:44 AM EDT 06/02/2018 8:49 AM EDT Narrative Resulting Agency Comment Spec In Lab Alta Camacho MD CHEMISTRY ORDERABLES Performing Organization Address City/[facility]/ZIP Co de Phone Number [facility] [place] [address] * (ABNORMAL) Basic Metabolic Panel (non-fasting) (06/02/2018 8:44 AM EDT) Glucose 109 65 - 199 mg/dL [facility] Comment:Diabetes: >=200 mg/d L plus symptoms Blood Urea Nitrogen 34(H) 8 - 18 mg/dL [facility] Creatinine 1.65(H) 0.70 - 1.20 mg/dL [facility] Sodium 145 135 - 145 mmol/L [facility] Potassium 4.6 3.5 - 5.0 mmol/L [facility] Comment: Please note: ??Patients with WBC >100,000 may have falsely elevated Potassium levels. ??For accurate Potassium quantification in these patients send serum separator tube (gold top) for subsequent determinations. ??Contact the Clinical Chemistry Laboratory if there are any questions. Chloride 107 98 - 107 mmol/L [facility] Carbon Dioxide 24 22 - 31 mmol/L [facility] Anion Gap 14 5 - 15 mmol/L [facility] Calcium 9.9 8.5 - 10.5 mg/dL [facility] Est Glomerular Filtration Rate 32(L) >=60 mL/min/1. 73 m?? [facility] Comment: The eGFR was calculated using the CKD-EPI equation. As with all creatinine based estimates of kidney function, eGFR values calculated with the CKD-EPI equation are not accurate in patients with acute kidney failure, extremes of body mass or the acutely ill. [email or web address] eGFR 38(L) >=60 mL/min/1. 73 m?? [facility] Comment: The eGFR was calculated using the CKD-EPI equation. As with all creatinine based estimates of kidney function, eGFR values calculated with the CKD-EPI equation are not accurate in patients with acute kidney failure, extremes of body mass or the acutely ill. [email or web address] Blood specimen (specimen) 06/02/2018 8:44 AM EDT 06/02/2018 8:49 AM EDT Narrative Resulting Agency Comment Spec In Lab Alta Camacho MD CHEMISTRY ORDERABLES Performing Organization Address City/[facility]/ZIP Co de Phone Number [facility] [place] [address] * Phosphorus (06/02/2018 8:44 AM EDT) Phosphorus 4.2 2.5 - 4.5 mg/dL [facility] Blood specimen (specimen) 06/02/2018 8:44 AM EDT 06/02/2018 8:49 AM EDT Narrative Resulting Agency Comment Spec In Lab Alta Camacho MD CHEMISTRY ORDERABLES Performing Organization Address [facility] Co de Phone Number [facility] [place] [address] documented in this encounter Visit Diagnoses Diagnosis CKD (chronic kidney disease) stage 4, GFR 15-29 ml/min Chronic kidney disease, Stage IV (severe) documented in this encounter Care Teams Shop Hand Relationship Specialty Start Date End Date Rina Hernandez, GENERAL MAINTENANCE ENGINEER [address] [place] [address] PCP - General Family Medicine 01/02/17 09/29/21 documented as of this encounter
--- OUTSIDE RECORDS SUMMARY | 2024-05-27 22:03 | XMS_ITS | Encounter Summary ---
[place] [address] Care Team Providers Care Performance Analyst Name Role Phone Shannon Fletcher APRN Primary Care Provider [phone] Encounter Details Date Type Department Care Team (Late st Contact Info) Description 05/27/2023 Telephone Nephrology [place] [id number] Carmina Foster Social History Tobacco Use Types [...] * Telephone Encounter - Carmina Foster - 05/27/2023 1:22 PM EDT LM for patient to call and schedule a follow up appointment documented in this encounter Plan of Treatment Not on file documented as of this encounter Visit Diagnoses Not on filedocumented in this encounter Care Teams Performance Analyst Relationship Specialty Start Date End Date Shannon Fletcher [place] [address] [place] [address] PCP - General Family Medicine 09/30/21 documented as of this encounter
--- OUTSIDE RECORDS SUMMARY | 2024-05-27 22:03 | XMS_ITS | Encounter Summary ---
[place] [address] Care Team Providers Care Electric Motor Mechanic Name Role Phone Shannon Fletcher APRN Primary Care Provider [phone] Encounter Details Date Type Department Care Team (Latest Contact Info) Description 06/15/2023 Travel Social History Tobacco Use Types Packs/Day [...] on filedocumented in this encounter Care Teams Electric Motor Mechanic Relationship Specialty Start Date End Date Shannon Fletcher [place] [address] [place] [address] PCP - General Family Medicine 09/30/21 documented as of this encounter
--- OUTSIDE RECORDS SUMMARY | 2024-05-27 22:04 | XMS_ITS | Referral Summary ---
Author Organization [facility] Address [address] [place] [address] Care Team Providers Care Rehab Physician Name Role Phone Unavailable Primary Care Provider Unavailabl e Social History Tobacco Use Types Packs/Day Years Used Date Smoking Tobacco: Never Assessed Interpersonal Safety Answer Date Record ed Physically Hurt Never 06/26/2020 Verbally Threaten Not on file 06/26/2020 Sex and Gender Information Value Date Recorded Sex Assigned at Not on file Gender Identity Not on file Sexual Orientation Not on file Plan of Treatment Not on file Procedures Procedure Name Priority Date/Time Associated Diagnosis Comments HCV RNA DETECT QUANT Routine 03/28/2020 7:45 EDT from Last 3 Months or Most Recently Relevant to Health Maintenance Results * HCV RNA DETECT QUANT (03/28/2020 7:45 EDT) HCV RNA Qualitative Undetected Undetected 03/30/2020 13:56 EDT [facility] Blood VENOUS BLOOD / Unknown 03/28/2020 7:45 EDT 03/29/2020 16:12 EDT Narrative [facility] - 03/30/2020 13:56 EDT The quantification range of this assay is 15 IU/mL to 100,000,000 IU/mL. ??Testing was performed on the BREANNA Ampliprep/BREANNA TaqMan HCV v2.0 ([employer] Provider Outr Resulting Lab CHEMISTRY & BLOOD GAS ORDERABLES [facility] [address] [place] [address] from Last 3 Months or Most Recently Relevant to Health Maintenance
--- OUTSIDE RECORDS SUMMARY | 2024-05-27 22:04 | XMS_ITS | Encounter Summary ---
Author Organization [facility] Address [address] [place] [address] Care Team Providers Care Fiber Optic Assembly Worker Name Role Phone Unavailable Primary Care Provider Unavailabl e Encounter Details Date Type Department Care Team (Late st Contact Info) Description 09/25/2021 Lab Requisition [facility] Pathology & Laboratory Medicine - [address] [address] Outr Resulting Lab, Provider Social History Tobacco Use Types Packs/Day Years [...] Name Priority Date/Time Associated Diagnosis Comments PTH INTACT Routine 09/25/2021 11:50 EST documented in this encounter Results * (ABNORMAL) PTH INTACT (09/25/2021 11:50 EST) Intact PTH 183(H) 19 - 88 pg/mL 09/27/2021 9:42 EST [facility] Blood VENOUS BLOOD / Unknown 09/25/2021 11:50 EST 09/26/2021 17:15 EST Provider Outr Resulting Lab CHEMISTRY & BLOOD GAS ORDERABLES [facility] [address] [place] [address] documented in this encounter Visit Diagnoses Not on filedocumented in this encounter
--- OUTSIDE RECORDS SUMMARY | 2024-05-27 22:04 | XMS_ITS | Clinical Summary ---
Author Organization [facility] Address [address] [place] [address] Care Team Providers Care Flame Degreaser Name Role Phone Unavailable Primary Care Provider [...] Orientation Not on file Plan of Treatment Health Maintenance Due Date Last Done Comments RSV Immunization ( o r 60+ Years) (1 - 1-dose 60+ series) 2013 Fall Risk Screening 2018 COVID-19 Vaccine (2022- season) 2023 Hepatitis C Screen Completed 03/28/2020 Procedures Procedure Name Priority Date/Time Associated Diagnosis Comments HCV RNA DETECT QUANT Routine 03/28/2020 7:45 EDT from Last 3 Months or Most Recently Relevant to Health Maintenance Results * HCV RNA DETECT QUANT (03/28/2020 7:45 EDT) HCV RNA Qualitative Undetected Undetected 03/30/2020 13:56 EDT [facility] Blood VENOUS BLOOD / Unknown 03/28/2020 7:45 EDT 03/29/2020 16:12 EDT Narrative [facility] - 03/30/2020 13:56 EDT The quantification range of this assay is 15 IU/mL to 100,000,000 IU/mL. ??Testing was performed on the BREANNA Ampliprep/BREANNA TaqMan HCV v2.0 ([employer] Provider Outr Resulting Lab CHEMISTRY & BLOOD GAS ORDERABLES [facility] [address] [place] [address] from Last 3 Months or Most Recently Relevant to Health Maintenance
--- OUTSIDE RECORDS SUMMARY | 2024-05-27 22:04 | XMS_ITS | Encounter Summary ---
Author Organization [facility] Address [address] [place] [address] Care Team Providers Care Vice President Biostatistics Name Role Phone Unavailable Primary Care Provider Unavailabl e Encounter Details Date Type Department Care Team (Late st Contact Info) Description 03/29/2020 Lab Requisition [facility] Pathology & Laboratory Medicine - [address] [address] Outr Resulting Lab, Provider Social History Tobacco Use Types Packs/Day Years Used Date Smoking Tobacco: Never Assessed Sex and Gender Information Value Date Recorded Sex Assigned at Not on file Gender Identity Not on file Sexual Orientation Not on file documented as of this encounter Plan of Treatment Not on file documented as of this encounter Procedures Procedure Name Priority Date/Time Associated Diagnosis Comments HCV RNA DETECT QUANT Routine 03/28/2020 7:45 EDT documented in this encounter Results * HCV RNA DETECT QUANT (03/28/2020 7:45 EDT) HCV RNA Qualitative Undetected Undetected 03/30/2020 13:56 EDT [facility] Blood VENOUS BLOOD / Unknown 03/28/2020 7:45 EDT 03/29/2020 16:12 EDT Narrative [facility] - 03/30/2020 13:56 EDT The quantification range of this assay is 15 IU/mL to 100,000,000 IU/mL. ??Testing was performed on the BREANNA Ampliprep/BREANNA TaqMan HCV v2.0 ([employer] Provider Outr Resulting Lab CHEMISTRY & BLOOD GAS ORDERABLES [facility] [address] [place] [address] documented in this encounter Visit Diagnoses Not on filedocumented in this encounter
--- OUTSIDE RECORDS SUMMARY | 2024-05-27 22:04 | XMS_ITS | Encounter Summary ---
Author Organization [facility] [place] [address] Care Team Providers Care Fueler Name Role Phone Carlee Rubio INTERLOCKING TOWER OPERATOR Primary Care Provider [phone] Encounter Details Date Type Department Care Team (Late st Contact Info) Description 06/14/2014 10:00 AM EST - 06/14/2014 10:45 AM EST [place] [address] Aide Angela MD [facility] [place] [address] COLONOSCOPY, POLYPECTOMY, REMOVAL LESION BY SNARE (WRVU 4.57) Social History Tobacco Use Types Packs/Day Years [...] Sign Reading Time Taken Comments Blood Pressure 174/68 06/14/2014 10:36 AM EST Pulse 54 06/14/2014 10:36 AM EST Temperature - - Respiratory Rate 16 06/14/2014 10:36 AM EST Oxygen Saturation 100% 06/14/2014 10:36 AM EST Inhaled Oxygen Concentration - - Weight - - Height - - Body Mass Index - - documented in this encounter Discharge Instructions * Discharge Instructions* Niharika Mora RN - 06/14/2014 10:42 AM EST Colonoscopy and polyp removal What to expect after the procedure You may feel a little more gassy or bloated than usual, this is normal. You should expect the return of normal bowel function in the next 2 to 3 days. Because some polyps were removed, you may see a little blood with the next few bowel movements, this should be a small amount ( less than a few tablespoons) and will resolve on it's own. ACTIVITY Because of the sedation that you received Your judgement and reaction time are effected ?? Go home and rest for the remainder for the day. You may resume your normal activities tomorrow ?? Change from one position to the next slowly because you may lose your balance unexpectedly. ?? Be careful on stairs, as you may be unsteady. ?? Avoid strenuous activity for 48 to 72 hrs FOR THE NEXT 24 HRS ?? DO NOT DRIVE OR OPERATE MACHINERY ?? DO NOT DRINK ALCOHOLIC BEVERAGES ?? DO NOT SIGN LEGAL DOCUMENTS ?? If you are a smoker: DO NOT SMOKE WHILE YOU ARE ALONE Diet ?? Start by eating small portions of foods that ordinarily will not upset your stomach, avoid gas producing foods for the next few days. ?? Be gentle with what you choose to start with ?? A soft diet may be helpful for the next 3 days as this may help to keep your stools soft. ?? Drink plenty of fluids ( unless your doctor has told you not to). Medicines Avoid medicines that influence the way your blood clots for the next week. These would include anti-inflammatory medicine, such as ibuprofen( Advil, Motrin) and naproxen ( Aleve). If you need something for discomfort, Tylenol (Acetaminophen) is safe if used as directed. Your Doctor will tell you when to restart your prescribed blood thinners The IV site-- slight tenderness, or redness is normal, you can use warm compresses if you get concerned. If the tenderness +/or redness increases or foul drainage and a red streak occurs, please contact your PCP immediately. When should you call for help? Call 911 anytime you think you may need emergency care. For example If you pass out (loss of consciousness) If you pass maroon or bloody stools If you have severe belly pain Call your healthcare provider or seek immediate medical care if: Your stools are black or tar like Your stools have streaks of blood that is more pronounced with each BM You have belly pain, or your belly is swollen and firm You vomit You have a fever You are very dizzy Watch closely for changes in your health, and be sure to contact your doctor if you have any problems. Your Doctor will let you know when you will need your next colonoscopy. The results of your test and your risk for colorectal cancer will help your doctor decide how often you need to be checked. [facility] [phone] 8a-5p Same Day Endo [phone] 7a-8p Otherwise contact [phone] and ask to speak to the employment coach road conductor Follow up care is a kaplan part of your treatment and safety. Be sure to make and go to all appointments, and call your doctor if you are having problems. Discharge instructions reviewed with patient who expresses understanding documented in this encounter Medications at Time of Discharge Medication Sig Dispensed Refills Start Date End Date UNKNOWN TO PATIENTIndications:hyp ertension Indications: Hypertension 02/13/2017 documented as of this encounter H&P Notes * Aide Angela MD - 06/14/2014 9:50 AM EST Gastroenterology and Hepatology Pre-Procedure History and Physical Exam Procedure: Colonoscopy: Indication: Fecal Occult blood positive PMH- HTN S/p VIDAL S/p CCY S/p appy EXAM: HEENT: Airway examined, oropharynx clear Mallampati Score: II (soft palate, uvula, fauces visible) LUNGS: Clear to auscultation HEART: Regular rate and rhythm, normal S1, S2 ABDOMEN: Normal bowel sounds, soft, non tender, non distended, A/P Proceed with the planned endoscopic procedure. ASA 2 - Patient with mild systemic disease with no functional limitations Sedation Plan: moderate (conscious sedation) Risks and benefits of the procedure explained to the patient. Consent signed. documented in this encounter Plan of Treatment Not on file documented as of this encounter Procedures Procedure Name Priority Date/Time Associated Diagnosis Comments SURGICAL PATHOLOGY REPORT Routine 06/14/2014 10:34 AM EST SPECIMEN TO PATHOLOGY Routine 06/14/2014 10:34 AM EST SPECIMEN TO PATHOLOGY Routine 06/14/2014 10:34 AM EST SPECIMEN TO PATHOLOGY Routine 06/14/2014 10:34 AM EST SPECIMEN TO PATHOLOGY Routine 06/14/2014 10:34 AM EST COLONOSCOPY, POLYPECTOMY, REMOVAL LESION BY SNARE (WRVU 4.57) 06/14/2014 9:45 AM EST positive ifob COLONOSCOPY Routine 06/14/2014 9:26 AM EST documented in this encounter Results * Surgical Pathology Report (06/14/2014 10:34 AM EST) Final Diagnosis ? [facility] ? Provider: ?? COREEN, AIDE ? Pt. Name: ?? ROBERT MICAELA ? Acc #: ?[id number] ?Pt. ? Col Date: ?? 06/14/2014 ?/Sex: ?1955,(58 years),Female ? Rec Date: ?? 06/14/2014 ?LOC: ?4T ? SURGICAL PATHOLOGY ? ---Pathologic Diagnosis--- ? A - Cecum, polypectomy: ? Fragments of tubular adenoma. ? B - IC valve, biopsy: ? Intestional mucosa negative for diagnostic abnormality. ? C - Descending colon, biopsy: ? Tubular adenoma completely excised. ? D - Polyp at 40 cm, polypectomy: ? Mildly active chronic colitis, negative for dysplasia. ? CR-0, CR-PX ? 06/16/14 ? JLH ? 06/16/14 Verified by: ? Victor Hugo Dale MD ? Pathologist ? (Electronic Signature) ? The attending pathologist whose signature appears on this report has ? reviewed all diagnostic slides and has edited the gross and/or ? microscopic portion of the report in rendering the final pathologic ? diagnosis. ? ---Gross Description--- ? A - Labeled/Fixative : Polyp cecum, formalin. ? Quantity/Size: Three, averaging 0.5 cm. ? Tissue Description: Soft, pink tissues. ? Sections/Process ing: (T1) ? B - Labeled/Fixative : Biopsies IC valve, formalin. ? Quantity/Size: Single, 0.4 cm. ? Tissue Description: Soft, pink tissue. ? Sections/Process ing: (T1) ? C - Labeled/Fixative : Polyp descending colon at 70 cm, formalin. ? Quantity/Size: Single, 1.8 x 1.5 x 1.0 cm. ? Tissue Description: Soft, red, pedunculated polyp. ? Sections/Process ing: Inked and serially sectioned. (T2) ? D - Labeled/Fixative : Inflammatory looking polyp at 40 cm, formalin. ? Quantity/Size: Single, 0.3 cm. ? [facility] ? Provider: ?? AIDE ANGELA ? Pt. Name: ?? MICAELA JONES ? Acc #: ?[id number] ?Pt. ? Col Date: ?? 06/14/2014 ?/Sex: ?1955,(58 years),Female ? Rec Date: ?? 06/14/2014 ?LOC: ?4T ? SURGICAL PATHOLOGY ? Tissue Description: Soft, pink tissue. ? Sections/Process ing: (T1) ??sns ? ---Clinical Information--- ? Specimen Submitted: ? A - Polyp cecum ? B - Biopsies IC valve ? C - Polyp descending colon at 70cm ? D - Inflammatory looking polyp at 40cm ? Clinical History: ? Screening colonoscopy ? Clinical Diagnosis: ? Inflammation on IC valve and inflammatory polyp sigmoid; two polyps 06/16/2014 4:12 PM EST [facility] GI Biopsy 06/14/2014 10:3 4 AM EST 06/14/2014 10:34 AM EST GI Biopsy 06/14/2014 10:3 4 AM EST 06/14/2014 10:34 AM EST GI Biopsy 06/14/2014 10:3 4 AM EST 06/14/2014 10:34 AM EST GI Biopsy 06/14/2014 10:3 4 AM EST 06/14/2014 10:34 AM EST Aide Angela MD PATHOLOGY/CYTOLOGY O PATY Performing Organization Address City/[facility]/ZIP Co de Phone Number [facility] [place] [phone] * Specimen to Pathology (surgical or derm) (06/14/2014 10:34 AM EST) AP Specimen 06/14/2014 10:3 4 AM EST 06/14/2014 10:34 AM EST Narrative [facility] - 06/14/2014 10:35 AM EST Specimen requisition ordered. ??Separate Pathology report to follow Aide Angela MD PATHOLOGY/CYTOLOGY O PATY [facility] * Specimen to Pathology (surgical or derm) (06/14/2014 10:34 AM EST) AP Specimen 06/14/2014 10:3 4 AM EST 06/14/2014 10:34 AM EST Narrative [facility] 06/14/2014 10:34 AM EST Specimen requisition ordered. ??Separate Pathology report to follow Aide Angela MD PATHOLOGY/CYTOLOGY O PATY Performing Organization Address [facility] Co de Phone Number [facility] * Specimen to Pathology (surgical or derm) (06/14/2014 10:34 AM EST) AP Specimen 06/14/2014 10:3 4 AM EST 06/14/2014 10:34 AM EST Narrative [facility] - 06/14/2014 10:34 AM EST Specimen requisition ordered. ??Separate Pathology report to follow Aide Angela MD PATHOLOGY/CYTOLOGY O PATY Performing Organization Address [facility] Co de Phone Number [facility] * Specimen to Pathology (surgical or derm) (06/14/2014 10:34 AM EST) AP Specimen 06/14/2014 10:3 4 AM EST 06/14/2014 10:34 AM EST Narrative [facility] - 06/14/2014 10:34 AM EST Specimen requisition ordered. ??Separate Pathology report to follow Aide Angela MD PATHOLOGY/CYTOLOGY O PATY Performing Organization Address [facility] Co de Phone Number [facility] * COLONOSCOPY (06/14/2014 9:26 AM EST) COLONOSCOPY [facility] Patient Name: Micaela Robert ? Procedure Date: 06/14/2014 9:26 AM ? Date of : 1955 ? Age: 58 ? Order #: [id number] ? Procedure: ? Colonoscopy Indications: ? Heme positive stool Providers: ? Aide Angela MD, Edy Concepcion RN, ? Kate Samson MD: ?Carlee Rubio NP Medicines: ? Midazolam 4 mg IV, Fentanyl [...] likely not clinically ? significant. ? Aide Angela MD 06/14/2014 10:41 AM This report has been signed electronically. Number of Addenda: 0 Note Initiated On: 06/14/2014 9:26 AM PROVATION 06/14/2014 9:26 AM EST Carlee Rubio INTERLOCKING TOWER OPERATOR GENERAL SURGICAL O RDERABLES PROVATION documented in this encounter Visit Diagnoses Not on filedocumented in this encounter Administered Medications Inactive Administered Medications - up to 3 most recent administrations Medication Order MAR Action Action Date Dose Rate Site fentaNYL 50mcg/mL injection ONCE PRN, Starting on Thu06/14/14 at 0947, Until Thu06/14/14 at 1117, Intra-Operative (Intra-Procedure), Routine Given 06/14/2014 9:55 AM EST 25 mcg Given 06/14/2014 9:51 AM EST 50 mcg Given 06/14/2014 9:47 AM EST 50 mcg midazolam (PF) (VERSED) 1 mg/mL injection ONCE PRN, Starting on Thu06/14/14 at 0951, Until Thu06/14/14 at 1117, Intra-Operative (Intra-Procedure), Routine Given 06/14/2014 10:03 AM EST 1 mg Given 06/14/2014 9:55 AM EST 1 mg Given 06/14/2014 9:51 AM EST 1 mg documented in this encounter Active and Recently Administered Medications Times are shown in EST. PRN Medication Order 06/12/2014 06/13/2014 06/14/2014 fentaNYL 50mcg/mL injection (CANCELED) ONCE PRN, Starting on Thu06/14/14 at 0947, Until Thu06/14/14 at 1117, Intra-Operative (Intra-Procedure), Routine 0947 (Given - Provid er: Edy Concepcion RN)0951 (Given - Provider: Edy Concepcion RN)0955 (Given - Provider: Edy Concepcion RN) midazolam (PF) (VERSED) 1 mg/mL injection (CANCELED) ONCE PRN, Starting on Thu06/14/14 at 0951, Until Thu06/14/14 at 1117, Intra-Operative (Intra-Procedure), Routine 0947 (Given - Provid er: Edy Concepcion RN)0951 (Given - Provider: Edy Concepcion RN)0955 (Given - Provider: Edy Concepcion RN)1003 (Given - Provider: Edy Concepcion RN) documented in this encounter Care Teams Fueler Relationship Specialty Start Date End Date Carlee Rubio, INTERLOCKING TOWER OPERATOR [facility] [address] [facility] [place] [address] PCP - General 05/26/14 01/01/17 documented as of this encounter
--- OUTSIDE RECORDS SUMMARY | 2024-05-27 22:04 | XMS_ITS | Encounter Summary ---
Author Organization Formerly [facility] [place] [address] Care Team Providers Care Property Management Assistant Name Role Phone Carlee Rubio FURNACE PROCESS SUPERVISOR Primary Care Provider [phone] Encounter Details Date Type Department Care Team (Latest Contact Info) Description 06/14/2014 8:10 AM EST - 06/14/2014 11:28 AM EST Hospital Encounter Gastroenterology at [facility] [place] [address] Aide Angela MD [facility] [place] [address] Discharge Disposition: Home Social History Tobacco Use [...] you need to be checked. Thursday-Thursday Clinic [phone] 8a-5p Same Day Endo [phone] 7a-8p Otherwise contact [phone] and ask to speak to the tap grinder superintendent radio communications Follow up care is a kaplan part [...] (06/14/2014 10:34 AM EST) Final Diagnosis ? [facility] ? Provider: ?? COREEN, AIDE ? Pt. Name: ?? MICAELA JONES ? Acc #: ?[id number] ?Pt. ? Col Date: ?? 06/14/2014 ?/Sex: [...] dysplasia. ? CR-0, CR-PX ? 06/16/14 ? [facility] ? 06/16/14 Verified by: ? Victor Hugo [...] formalin. ? Quantity/Size: Single, 0.3 cm. ? [facility] ? Provider: ?? AIDE ANGELA ? Pt. Name: ?? MICAELA JONES ? Acc #: ?[id number] ?Pt. ? Col Date: ?? 06/14/2014 ?/Sex: [...] sigmoid; two polyps 06/16/2014 4:12 PM EST [facility] GI Biopsy 06/14/2014 10:3 4 AM EST 06/14/2014 10:34 AM EST GI Biopsy 06/14/2014 10:3 4 AM EST 06/14/2014 10:34 AM EST GI Biopsy 06/14/2014 10:3 4 AM EST 06/14/2014 10:34 AM EST GI Biopsy 06/14/2014 10:3 4 AM EST 06/14/2014 10:34 AM EST Aide Angela MD PATHOLOGY/CYTOLOGY O PATY Performing Organization Address City/[facility]/ZIP Co de Phone Number SLAVA VALENTINE [facility] [place] [address] * Specimen to Pathology (surgical or derm) (06/14/2014 10:34 AM EST) AP Specimen 06/14/2014 10:3 4 AM EST 06/14/2014 10:34 AM EST Narrative SLAVA VALENTINE - 06/14/2014 10:35 AM EST Specimen requisition ordered. ??Separate Pathology report to follow Aide Angela MD PATHOLOGY/CYTOLOGY O RDERABLES Performing Organization Address City/[facility]/ZIP Co de Phone Number SLAVA VALENTINE * Specimen to Pathology (surgical or derm) (06/14/2014 10:34 AM EST) AP Specimen 06/14/2014 10:3 4 AM EST 06/14/2014 10:34 AM EST Narrative SLAVA VALENTINE - 06/14/2014 10:34 AM EST Specimen requisition ordered. ??Separate Pathology report to follow Aide Angela MD PATHOLOGY/CYTOLOGY O RDULYSSES Performing Organization Address [facility] Co de Phone Number [facility] * Specimen to Pathology (surgical or derm) (06/14/2014 10:34 AM EST) AP Specimen 06/14/2014 10:3 4 AM EST 06/14/2014 10:34 AM EST Narrative [facility] 06/14/2014 10:34 AM EST Specimen requisition ordered. ??Separate Pathology report to follow Aide Angela MD PATHOLOGY/CYTOLOGY O RDULYSSES Performing Organization Address [facility] de Phone Number [facility] * Specimen to Pathology (surgical or derm) (06/14/2014 10:34 AM EST) AP Specimen 06/14/2014 10:3 4 AM EST 06/14/2014 10:34 AM EST Narrative SLAVA VALENTINE - 06/14/2014 10:34 AM EST Specimen requisition ordered. ??Separate Pathology report to follow Aide Angela MD PATHOLOGY/CYTOLOGY O RDULYSSES Performing Organization Address City/[facility] Co de Phone Number [facility] * COLONOSCOPY (06/14/2014 9:26 AM EST) COLONOSCOPY [facility] Endoscopy Patient Name: Micaela Jones ? Procedure Date: 06/14/2014 9:26 AM ? Date of : 1955 ? Age: 58 ? Order #: [id number] ? Procedure: ? Colonoscopy Indications: ? Heme positive stool Providers: ? Aide Angela MD, Edy Concepcion RN, ? Kate Cevallos Referring : ?Carlee Rubio, KRYSTLE Medicines: ? Midazolam 4 [...] PROVATION 06/14/2014 9:26 AM EST Carlee Rubio APRN GENERAL SURGICAL O RDERABLES PROVATION documented in this encounter Visit Diagnoses Not on filedocumented in this encounter Active and Recently Administered Medications Times are shown in EST. PRN Medication Order 06/12/2014 06/13/2014 06/14/2014 fentaNYL 50mcg/mL injection (CANCELED) ONCE PRN, Starting on Thu06/14/14 at 0947, Until Thu06/14/14 at 1117, Intra-Operative (Intra-Procedure), Routine 0947 (Given - Provid er: Edy Concepcion RN)0951 (Given - Provider: Edy Concepcion, RN)0955 (Given - Provider: Edy Concepcion RN) midazolam (PF) (VERSED) 1 mg/mL injection (CANCELED) ONCE PRN, Starting on Thu06/14/14 at 0951, Until Thu06/14/14 at 1117, Intra-Operative (Intra-Procedure), Routine 0947 (Given - Provid er: Edy Concepcion RN)0951 (Given - Provider: Edy Concepcion, RN)0955 (Given - Provider: Edy Concepcion, RN)1003 (Given - Provider: Edy Concepcion, RN) documented in this encounter Care Teams Property Management Assistant Relationship Specialty Start Date End Date Carlee Rubio, IGNACIO [facility] [address] [place] [address] PCP - General 05/26/14 01/01/17 documented as of this encounter
--- OUTSIDE RECORDS SUMMARY | 2024-05-27 22:04 | XMS_ITS | Encounter Summary ---
Author Organization [facility] Address [address] [place] [address] Care Team Providers Care Astrophysics Teacher Name Role Phone Unavailable Primary Care Provider Unavailabl e Encounter Details Date Type Department Care Team (Late st Contact Info) Description 01/24/2020 Lab Requisition [facility] Pathology & Laboratory Medicine - [facility] [address] [place] [address] Outr Resulting Lab, Provider Social History Tobacco [...] Procedure Name Priority Date/Time Associated Diagnosis Comments ZZCOVID-19 TEST [facility] PCR Today 01/24/2020 7:31 EDT COVID-19 TESTING Routine 01/24/2020 7:31 EDT documented in this encounter Results * COVID-19 TEST [facility] PCR (01/24/2020 7:31 EDT) Swab ENTIRE NASOPHARYNX / Unknown 01/24/2020 7:31 EDT 01/24/2020 21:02 EDT Provider Outr Resulting Lab MICROBIOLOGY - GENERAL ORDERABLES [facility] [address] [place] [address] * COVID-19 TESTING (01/24/2020 7:31 EDT) COVID-19 rt-PCR Result Negative Negative 01/25/2020 2:32 EDT [facility] Comment: This test has not been FDA cleared or approved. This test has been authorized by FDA under an EUA for use by authorized laboratories. This test has been authorized only for detection of nucleic acid from 2019-nCoV, not for any other viruses or pathogens. This test is only authorized for the duration of the declaration that circumstances exist justifying the authorization of emergency use of in vitro diagnostic tests for detection and/or diagnosis of 2019-nCoV under section 564(b)(1) of Act, 21 U.S.C ?? 360bbb-3(b) (1), unless the authorization is terminated or revoked sooner. Negative results do not preclude 2019-nCoV infection and should not be used as the sole basis for treatment or other patient management decisions. Negative results must be combined with clinical observations, patient history, and epidemiological information. Performed on the [employer] instrument Performing Lab [facility] 01/25/2020 2:32 EDT [facility] Swab 01/24/2020 7:31 EDT 01/24/2020 21:02 EDT Provider Outr Resulting Lab MICROBIOLOGY - GENERAL ORDERABLES [facility] [address] [place] [address] documented in this encounter Visit Diagnoses Not on filedocumented in this encounter
== END 2024-05-27 21:58 | disposition home or self-care (01) ==
LOC: LBN 21:57
PROVIDERS: PCP Nurse Practitioner Family; Visit Provider Nurse Practitioner Family
DX: N39.0 Urinary tract infection, site not specified (principal); R82.89 Other abnormal findings on cytological and histological examination of urine
CPT/HCPCS: 87086

== ENCOUNTER → 2024-06-09 11:06 | Outpatient (BNVA) | payer MEDICARE, SELFPAY | PROVIDERS: PCP Nurse Practitioner Family; Referring Provider Nurse Practitioner Family; Visit Provider Physical Therapy Assistant | DX: Z12.11 Encounter for screening for malignant neoplasm of colon (principal); Z86.0100 Personal history of colon polyps, unspecified; I10 Essential (primary) hypertension; N18.9 Chronic kidney disease, unspecified ==

== ENCOUNTER 2024-06-20 09:40 | Day surgery (SDC) | payer MEDICARE, SELFPAY ==
--- NOTE | 2024-06-19 17:39 | W.PM.DSUDISC ---
Date of service: 06/20/24 Time of Service: 11:44 Discharge Plan Disposition Patient Disposition: Home Condition: Good Discharge Details Reason For Visit: screening colonoscopy Attending Provider: Paul Falcon Primary Care Provider: CECILLE CAMARENA Home Meds and New Rx's Prescriptions: Continued atorvastatin 10 mg tablet 10 mg PO QHS chlorthalidone 25 mg tablet 25 mg PO DAILY Patient Comments: TAKE ONE TABLET BY MOUTH EVERY DAY carvedilol 3.125 mg tablet 3.125 mg PO BID Patient Comments: TAKE ONE TABLET BY MOUTH TWICE A DAY WITH MEALS losartan 100 mg tablet 100 mg PO DAILY Patient Comments: TAKE ONE TABLET BY MOUTH EVERY DAY dapagliflozin propanediol [Farxiga] 5 mg tablet 5 mg PO DAILY magnesium 250 mg tablet 250 mg PO DAILY ibuprofen 400 mg tablet 400 mg PO TID loperamide [Imodium A-D] 2 mg capsule 2 mg PO Q6H PRN multivitamin Tablet 1 tab PO DAILY cranberry extract [Cranberry Concentrate] 500 mg capsule 500 mg PO DAILY Rx Instructions: administer with meals valacyclovir [Valtrex] 1 gram tablet 1,000 mg PO PRN acetaminophen [8 Hour Pain Reliever] 650 mg tablet extended release 650 mg PO ONCE Patient Comments: 1300 mg Discontinued bisacodyl [Dulcolax (bisacodyl)] 5 mg tablet,delayed release (DR/EC) 5 mg PO ONCE Qty: 4 0RF Rx Instructions: Take per colonoscopy instructions provided by ordering providers office Discharge Instructions Instructions: Colon polyps Additional Instructions: Micaela, it was very nice seeing you today, and I hope you are comfortable during today's colonoscopy. I did find and remove a small bit of inflamed tissue today. I suspect this is probably just an inflammatory polyp, but to be safe, I will send this off to the pathologist for their review, as polyps, and a number of different varieties, and there is different varieties influence the timing of the recommended follow-up colonoscopy. Those results usually take a week or 2 before they are available, but once the office has them, we will be in touch with final recommendations. If you need anything, or have any questions in the meantime, please do not hesitate to ask. 1. If tolerated, consume a soft, low fiber diet for 1-2 days. 2[address] Do not drive, drink alcohol, operate machinery, make critical decisions, or do activities that require coordination or balance for 24 hours. 3. Because air was put into your colon during the procedure, expelling air from your rectum (passing gas or farting) is normal. 4. You may not have a bowel movement for 1-3 days because of the colonoscopy prep. This is normal. 5. Go directly to the emergency room if you notice any of the following: Develop chills (warm to touch), or if you have a thermometer and your temperature is above 101 Difficulty breathing or difficultly swallowing Persistent vomiting Severe abdominal pain, other than gas cramps Severe chest pain Black, tarry stools Any bleeding ? exceeding one tablespoon 6. Call your physician if the site where your intravenous was started becomes red, swollen, painful, and warm to touch. 7. Your physician has reviewed your pre-procedure medications. Please continue to take those medications as previously ordered. You will be given specific information/education regarding any changes to your medications before leaving. Stand Alone Forms: Anesthesia Discharge Inst., Shania Yoon (DSU) Activity:: Activity as Tolerated Diet:: As Tolerated Discharge Orders Discharge Orders: Discharge Order (Routine); Ordered 06/19/24 Ordered By: Paul Falcon DS: Diagnosis Discharge Diagnosis (1) Encounter for screening colonoscopy: Status: Acute Asessment and Plan: Follow-up on polypectomy results
--- NOTE | 2024-06-19 17:40 | W.COLOREPORT ---
Date of service: 06/20/24 Time of Service: 11:46 Colonoscopy Report Date of procedure: 06/20/24 Pre-op diagnosis general: screening colonoscopy Post-op diagnosis procedure note: other (Colon polyp) Procedure: colonoscopy with polypectomy Surgeon: Paul Falcon Anesthesia Type: General:No Airway Estimated blood loss (mL): 5 Pathology: other (0.25 cm polyp at 30 cm) Complications: None Disposition: same day Indications: Micaela is a 68 year old woman who needs her next screening colonoscopy Prep: Miralax/Dulcolax Procedure Start Time: Procedure End Time: :40 Retraction Time: 12 Findings: 0.25 cm flat inflamed polyp at 30 cm Procedure Description: After the induction of anesthesia, and with the patient in left lateral decubitus position, I began by performing an external anorectal exam.? Perineum and skin were normal, as was the anal verge.?? Next, I performed a digital rectal exam.? I did not appreciate any abnormal findings.? Next, I advanced a colonoscope into the rectal vault.? I performed retroflexion.? This appeared normal.? Using insufflation, I then advanced the colonoscope beyond the rectal folds and into the sigmoid colon before advancing towards the cecum.? The quality of the prep was adequate.? The scope was noted to be in the cecum by identification of the ileocecal valve and appendiceal orifice.? I then began withdrawing the colonoscope using repeated irrigation as necessary for full evaluation of the colonic mucosa. Around 30 cm from the anal verge was a small focus of inflammation that was raised above the surrounding mucosa just slightly. Narrowband imaging was used to assist with analysis here. Generally, this appeared consistent with an inflammatory polyp, or perhaps benign lymphoid aggregate. However, to be safe, I did remove this with cold forceps for a formal pathologic review. There is minimal bleeding from the polypectomy site. Once the scope was withdrawn to the level of the rectum, great care was taken to examine portions of the rectal folds.? Finally, the scope was withdrawn and the patient was brought to the same-day surgery recovery unit as the anesthetic wore off. ?The findings and instructions were shared with the patient prior to discharge. [place] Bowel Prep [place] Bowel Prep Right Colon: 3 Left Colon: 3 Transverse Colon: 3 Total Score: 9
[2024-06-20 10:14] VITALS: BP 148/84; PULSE 60; RESP 18; TEMP 37; O2SAT 98
[2024-06-20] MEDS: Normal Saline Flush 10 ML SYR IV (10:25)
--- NOTE | 2024-06-20 11:12 | W.ANESPRE ---
General Info Date of Service Date Performed: 06/20/24 Height: 5 ft 1 in Weight: 98.6 kg Body Mass Index (BMI): 41.1 Surgical Procedure: Operation Date: 06/20/24 11:20 Proposed Procedure Side Surgeon rick Falcon MD Meds Allergies and Home Medications Allergies Allergy/AdvReac Type Severity Reaction Status Date / Time No Known Allergies Allergy Verified 06/20/24 10:18 Home Medication ?Medication ?Instructions ?Recorded valacyclovir 1 gram tablet 1,000 mg PO PRN 02/17/19 (Valtrex) cranberry extract 500 mg capsule 500 mg PO DAILY 09/12/21 (Cranberry Concentrate) ibuprofen 400 mg tablet 400 mg PO TID 09/12/21 loperamide 2 mg capsule (Imodium 2 mg PO Q6H PRN 09/12/21 A-D) multivitamin 1 tab PO DAILY 09/12/21 atorvastatin 10 mg tablet 10 mg PO QHS 05/27/24 carvedilol 3.125 mg tablet 3.125 mg PO BID 05/27/24 chlorthalidone 25 mg tablet 25 mg PO DAILY 05/27/24 dapagliflozin propanediol 5 mg 5 mg PO DAILY 05/27/24 tablet (Farxiga) losartan 100 mg tablet 100 mg PO DAILY 05/27/24 magnesium 250 mg tablet 250 mg PO DAILY 06/09/24 acetaminophen 650 mg 650 mg PO ONCE 06/20/24 tablet,extended release (8 Hour Pain Reliever) Current Visit Medications: Current Medications Generic Name Dose Route Start Last Admin Trade Name Freq PRN Reason Stop Dose Admin IV Miscellaneous Supplies 1 each 06/20/24 06:00 Iv Access IV 06/20/24 23:59 DIRECTED ELEN Ondansetron HCl 4 mg 06/19/24 17:41 Ondansetron 4 Mg/2 Ml Vial IVP 07/19/24 17:40 Q4H PRN PRN Nausea / Vomiting Sodium Chloride 0 ml 06/20/24 06:00 06/20/24 10:25 Normal Saline Flush 10 Ml Syr IV 06/20/24 23:59 10 ml PRN PRN Administration Sodium Chloride 0 ml 06/20/24 06:00 Normal Saline 10 Ml Vial IJ 06/20/24 23:59 DIRECTED PRN Sterile Water 0 ml 06/20/24 06:00 Water,Injection,Sterile 10 Ml Vial IJ 06/20/24 23:59 DIRECTED PRN PFSH Active Problems Active Problems: Problem Status Onset Code Encounter for screening colonoscopy Acute Z12.11 Osteoporosis Chronic M81.0 Mixed hyperlipidemia Acute E78.2 At risk for sleep apnea Acute Z91.89 Hypertension Chronic I10 Kidney disease, chronic, stage IV (severe, EGFR 15-29 ml/min) Acute N18.4 Skin abscess Acute L02.91 Medical History Medical History Low back pain Herpes simplex viral infection History of bipolar disorder Surgical History Surgical History Hx of section Hx of hernia repair History of cholecystectomy Hx of appendectomy Hx of tonsillectomy History of hysterectomy (~2001) History of adenomatous polyp of colon (~2013) Tobacco Smoking/Tobacco Use Status: Never Alcohol Alcohol Intake: current Alcohol intake frequency: holidays/special occasions only Substance Use Substance use: Never Substance use type: does not use Details: alcohol: a long time ago Vital Signs and Lab Results Vital Signs Most Recent Vital Signs in EMR: Most Recent Vital Signs Temp Pulse Resp BP Pulse Ox 37.0 C 60 18 148/84 H 98 06/20/24 10:14 06/20/24 10:14 06/20/24 10:14 06/20/24 10:14 06/20/24 10:14 Lab Results Blood Type / Crossmatch: No Data to Display Complete Blood Count: No Data to Display Complete Metabolic Panel: No Data to Display Liver Function Panel: No Data to Display Coagulation Panel: No Data to Display Cardiac Panel: No Data to Display Arterial Blood Gas: No Data to Display Venous Blood Gas: No Data to Display Pancreas Panel: No Data to Display Thyroid Panel: No Data to Display Infectious Disease: No Data to Display Blood Cultures: No Data to Display Toxicology Panel: No Data to Display Anesthesia Assessment and Plan Anesthesia History Personal History: No History of Anesthesia Complications Family History: No Family History of Anesthesia Complications Exercise Tolerance Exercise Tolerance: Metabolic Equivalents>4 Pertinent Negatives Pertinent Negatives: No Symptoms of GERD Cardiac & Pulmonary Exam Cardiac Exam: Normal S1/S2 Heart Sounds Pulmonary Exam: Clear Bilateral Breath Sounds Implantable Cardiac Device Does patient have a Pacemaker or an ICD?: No Airway Exam Known Difficult Airway: No Mallampati Class: 2 Mouth Opening: Normal (> 3cm) Thyromental Distance: Greater than 3 cm Neck Range of Motion: Full ROM Neck Circumference: Normal Teeth Condition: Generalized Poor Dentition ASA Classification ASA Score: ASA 2 Emergency Case?: No NPO Status NPO Status: NPO Clears >2 hours, Solids >8 hours Anesthesia Plan Resuscitation Status: Full Code Anesthesia Technique: General Anesthesia Airway Planned: Natural Airway Monitors Used: Standard Monitors
[2024-06-20 11:13] VITALS: BMI 41.1
--- NOTE | 2024-06-20 11:38 | BOWEL_PTH ---
PATIENT: Micaela Ambrocio I LOC: [facility] U#:[id number] AGE/SX: 68/F ROOM: RE06/20/[address]: Paul Falcon MD : 1955 BED: DIS: 06/20/2024 SPEC #: [id number] RECD: 06/20/24 12:59 STATUS: NADIR REQ #: [id number] PRATIK: 06/20/24 11:[address]: Paul Falcon DEPT: Surgical Specimen RECD BY: Mayra Ku ENTERED: 06/20/24 12:59 SP TYPE: Bowel OTHR DR: CECILLE CAMARENA NP Tissues: 1 - BIOPSY BOWEL Procedures: GROSS AND MICRO LEVEL 4 Comments: [id number]
[2024-06-20 11:47] VITALS: BP 98/84; PULSE 77; RESP 16; TEMP 36.7; O2SAT 97
--- NOTE | 2024-06-20 11:53 | W.ANESPOSTOP ---
Postoperative Evaluation Date, Time and Location Date Performed: 06/20/24 Time Performed: 11:53 Patient Location: Day Surgery Unit Vital Signs Most Recent Imported Vital Signs: Most Recent Vital Signs Temp Pulse Resp BP Pulse Ox 36.7 C 77 16 98/84 L 97 06/20/24 11:47 06/20/24 11:47 06/20/24 11:47 06/20/24 11:47 06/20/24 11:47 Pain Score Most Recent Pain Score: Most Recent Pain Score Pain Level 0 06/20/24 11:47 Assessment Mental Status: Awake (Alert & Oriented to Patient Baseline) Airway and Respiratory Function: Patent airway with normal (patient baseline) respiratory exam Cardiovascular Function: Hemodynamically Stable Hydration Status: Adequately Hydrated Nausea & Vomiting: No Nausea or Vomiting Pain: Pt. Denies Any Pain Peripheral Nerve Block: Patient did not receive a nerve block
[2024-06-20 12:16] VITALS: BP 123/74; PULSE 59; RESP 16; TEMP 36.6; O2SAT 97
== END 2024-06-20 12:24 | disposition home or self-care (01) ==
LOC: SUR 09:41
PROVIDERS: PCP Nurse Practitioner Family; Visit Provider Surgery
PROC: 0DJD8ZZ Inspection of Lower Intestinal Tract, Via Natural or Artificial Opening Endoscopic (ICD-10-PCS; CPT 45378; principal; 2024-06-20 11:15)
DX: Z12.11 Encounter for screening for malignant neoplasm of colon (principal); I12.9 Hypertensive chronic kidney disease with stage 1 through stage 4 chronic kidney disease, or unspecified chronic kidney disease; N18.4 Chronic kidney disease, stage 4 (severe); K63.5 Polyp of colon
CPT/HCPCS: 45380; 88305; J2003; J2704

== ENCOUNTER 2025-04-11 15:10 | Outpatient (REF) | payer MEDICARE, SELFPAY ==
[2025-04-11 14:15] LABS: HCT 38.0 % (36.0-46.0); HGB 11.9 g/dL (11.2-15.7); MCH 29.0 pg (27.0-33.0); MCHC 31.3 % (32.0-36.0); MCV 93 fL (80-95); MPV 10.5 fL (8.0-11.0); Platelet Count 206 10^3/uL (130-400); RBC 4.11 10^6/uL (3.93-5.22); RDW 14.8 % (11.7-14.6); RDW-SD 50.4 fL; WBC 8.04 10^3/uL (4.4-10.8)
[2025-04-11 14:25] LABS: Iron 53 ug/dL (50-170); Total Iron Binding Capacity 281 ug/dL (250-450); Transferrin Sat 19 % (15-50)
[2025-04-11 14:36] LABS: ALT 20 U/L (14-59); AST 16 U/L (15-37); Albumin 3.8 g/dL (3.4-5.0); Alkaline Phosphatase 77 U/L (46-116); Anion Gap 7.5 mmol/L (3-11); BUN 39 mg/dL (7-18); Bilirubin, Total 0.6 mg/dL (0.2-1.0); CO2 29.5 mmol/L (21.0-32.0); Calcium 9.0 mg/dL (8.5-10.1); Calculated LDL 70 mg/dL (<100); Chloride 106 mmol/L (98-107); Cholesterol 147 mg/dL (<200); Estimated GFR 23.38 (mL/min/1.73m2); Glucose 90 mg/dL (74-106); HDL Cholesterol 58 mg/dL (>or=50); Magnesium 2.5 mg/dL (1.8-2.4); Potassium 3.9 mmol/L (3.5-5.1); Sodium 143 mmol/L (136-145); TSH (W/Ref FT4) 2.28 uIU/mL (0.36-3.74); Total Protein 6.6 g/dL (6.4-8.2); Triglyceride 96 mg/dL (<150)
[2025-04-11 14:37] LABS: Hemoglobin A1C 5.5 % (<5.7)
== END 2025-04-11 15:11 | disposition home or self-care (01) ==
LOC: NCHCN 15:10
PROVIDERS: PCP Nurse Practitioner Family; Visit Provider Nurse Practitioner Family
DX: N18.4 Chronic kidney disease, stage 4 (severe) (principal); E78.2 Mixed hyperlipidemia
CPT/HCPCS: 80053; 80061; 85027; 83036; 83540; 83550; 83735; 84443